=== PATIENT | female | born 1940 | race Hispanic/Latino ===

== ENCOUNTER → 2018-03-12 12:12 | Outpatient (CLI) | payer MEDICARE, OTHER, SELFPAY ==
--- NOTE | 2018-03-12 | DI.CT.S_ITS ---
PROCEDURE: CT CHEST WO CON INDICATIONS: LUNG NODULE TECHNIQUE: Noncontrast 2.0-2.5 mm thick sections acquired from the pulmonary apices to the posterior costophrenic angles. 7 mm thick coronal and sagittal MIP reformats were then acquired. A low radiation dose technique was utilized. COMPARISON: [facility], CT, THORAX WITHOUT CONTRAST, 05/21/2017, 9:40. [facility], CT, THORAX WITHOUT CONTRAST, 07/09/2017, 9:57. FINDINGS: Image quality: Diagnostic, given the low radiation dose technique. Lungs and pleura: There are scattered interstitial changes, and scarring which appear grossly unchanged. Previously described right upper lobe poorly defined nodule appears grossly unchanged measuring 12 x 8 mm image 50 series 3 dating back to prior study from 05/21/17. Additional previously described nodule seen in the anterior left lower lobe are grossly stable. No acute consolidation, pleural effusion or pneumothorax. Central airways appear grossly patent. Surgical clips, and right sided volume loss. Stable appearance of poorly defined groundglass and reticular-nodular subpleural opacities Mediastinum: Coronary artery calcifications. Heart size is normal. No pericardial effusion. No mediastinal adenopathy by size criteria. Thoracic aorta and central pulmonary arteries are normal in size. Esophagus is normal in caliber. No hiatal hernia. Bones and chest wall: No suspicious bony lesions. Chronic appearing left rib fractures. No vertebral body compression fractures. No axillary or supraclavicular adenopathy by size criteria. Thyroid gland negative. Abdomen: Visualized upper abdomen solid organs and bowel loops appear normal in the absence of contrast. IMPRESSION: Overall, stable examination. Recommend continued followup with one year noncontrast chest CT, in particular for the right upper lobe spiculated nodule. Fleischner Society criteria for SOLID lung nodule followup. Nodule size (mm)Low-risk patientHigh-risk patient<6 (single or multiple)No routine followup.Optional CT at 12 months. 6-8 (single or multiple)CT at 6-12 months, then optional CT at 18-24 mo.CT at 6-12 months, then CT at 18-24 months. >8 (single)CT at 3 months, PET-CT, or biopsy. Same as for low-risk pts. >8 (multiple)CT at 3-6 months, then optional CT at 18-24 mo.CT at 3-6 months, then CT at 18-24 months. Fleischner Society criteria for SUB-SOLID lung nodule followup. Solitary pure ground-glass nodules<6 mm (ground glass or part solid)No followup needed. 6 mm or larger (ground glass)CT at 6-12 months to confirm persistence, then CT every 2 years until 5 years.6 mm or larger (part solid)CT at 3-6 months to confirm persistence, then annual CT until 5 years if unchanged and solid component remains <6 mm. Multiple sub-solid nodules<6 mmCT at 3-6 months, then CT consider at 2 & 4 years for high risk patients. [address] at 3-6 months. Subsequent management based on most suspicious lesions. Recommendations do not apply to lung cancer screening, patients with immunosuppression, or patients with known primary cancer. Dictated by: Hitesh Juarez M.D. on 03/12/2018 at 13:03 Approved by: Hitesh Juarez M.D. on 03/12/2018 at 13:27
== END ==
PROVIDERS: PCP Family Medicine; Visit Provider Family Medicine
DX: R91.1 Solitary pulmonary nodule (principal)
CPT/HCPCS: 71250

== ENCOUNTER 2019-03-17 10:38 | Inpatient (IN) | payer MEDICARE, OTHER, SELFPAY ==
[2019-03-17] VITALS (10 sets, daily range): BP systolic 107–148; BP diastolic 49–87; PULSE 74–96; RESP 16–22; TEMP 36.7–37.6; O2SAT 93–98; BMI 18.0
--- NOTE | 2019-03-17 | PATH_ITS ---
[facility] Accession Number: [id number] . 01 Material submitted: . GASTRIC BODY . 01 Clinical history: . EVALUATE FOR H.PYLORI . 02 Diagnosis: Gastric Body: Superficial portions of gastric body-type mucosa with focal features of reactive gastropathy. Negative for H. pylori organisms by immunohistochemistry studies. Negative for intestinal metaplasia. Negative for dysplasia or malignancy. [facility]/03/22/2019 . 02 Electronically signed: . Shania García MD, Pathologist NPI- [id number] . 01 Gross description: . GASTRIC BODY: Received in formalin are 4 fragment(s) of cheung, soft tissue measuring 0.2 x 0.2 x 0.2 cm to 0.4 x 0.3 x 0.2 cm which is entirely submitted and submitted entirely in 1 cassette(s) /DMC /DMC . 02 Microscopic: . An immunohistochemical stain was performed on block A1 to evaluate for Helicobacter organisms and is negative. The control stain showed appropriate reactivity. . * This test was developed and its performance characteristics determined by [facility]. It has not been cleared or approved by the U.S. Food and Drug Administration. The FDA has determined that such clearance or approval is not necessary. This test is used for clinical purposes. It should not be regarded as investigational or for research. . 02 Pathologist provided ICD-10: K29.70 . 02 CPT . 958626, R06875 Performed at: 01 [facility] [address] [place] [address], [place], [place] [id number] MD Earl Raines MD Phone: [phone] [facility] [id number] [place], [place] [id number] MD Anika Miguel MD Phone: [phone]
[2019-03-17] MEDS: SODIUM CHLORIDE 0.9% 1,000 ML 125 ML IV ×2 (11:15→22:12)
[2019-03-17 11:54] LABS: Add Manual Diff / Slide Review NO; Basophils Absolute Auto 0 /uL (0-100); Basophils Percent Auto 0.8 % (0-2); Eosinophils Absolute Auto 100 /uL (0-450); Eosinophils Percent Auto 1.1 % (2-4); Hematocrit 24.5 % (36-46); Hemoglobin 7.4 g/dL (12.0-16.0); Lymphocytes Absolute Auto 1300 /uL (1100-4500); Lymphocytes Percent Auto 28.4 % (25-40); Mean Corpuscular HGB Conc 30.1 % (30-36); Mean Corpuscular Volume 73.2 fL (80-100); Monocytes Absolute Auto 400 /uL (0-900); Monocytes Percent Auto 7.8 % (3-14); Neutrophils Absolute Auto 2900 /uL (1500-7000); Neutrophils Percent Auto 61.9 % (50-75); Platelet Count 277 X10^3/uL (150-400); Red Blood Cell Count 3.35 X10^6/uL (4.0-5.2); Red Cell Distribution Width 16.2 % (11.6-14.8); White Blood Cell Count 4.7 X10^3/uL (4.5-11.0)
[2019-03-17 11:55] LABS: INR 0.9 (0.9-1.3); Prothrombin Time 10.9 SECONDS (10.1-12.7)
[2019-03-17] MEDS: PANTOPRAZOLE 80 MG in SODIUM CHLORIDE 0.9% 100 ML 10 ML IV ×2 (11:56→22:54)
[2019-03-17 11:57] LABS: PTT Partial Thromboplastin Tim 23 SECONDS (26.4-36.2)
[2019-03-17 12:01] LABS: Alanine Aminotransferase 18 IU/L (9-52); Albumin 4.3 g/dL (3.5-5.0); Albumin Globulin Ratio 1.6 (1.0-2.8); Alkaline Phosphatase 84 U/L (38-126); Aspartate Aminotransferase 32 IU/L (14-36); BUN Creatinine Ratio 15.6 (6-22); Bilirubin Total 0.4 mg/dL (0.2-1.3); Blood Urea Nitrogen 14 mg/dL (7-17); Calcium 9.3 mg/dL (8.4-10.2); Carbon Dioxide 24 mmol/L (22-32); Chloride 105 mmol/L (98-107); Estimated Glomerular Filt Rate > 60.0 mL/min (>60); Globulin 2.7 g/dL (1.7-4.1); Glucose 109 mg/dL (80-110); HEMOLYSIS < 15 (0-50); Potassium 4.5 mmol/L (3.4-5.1); Sodium 138 mmol/L (137-145)
[2019-03-17 12:15] LABS: Iron 17 ug/dL (37-170)
[2019-03-17 12:24] LABS: Total Iron Binding Capacity 366 ug/dL (265-497)
[2019-03-17 12:35] LABS: Ferritin 8.2 ng/mL (11.1-264)
--- NOTE | 2019-03-17 12:45 | PC.ADMIT ---
Addendum entered by Hitesh Perry R.N. 03/17/19 13:33: Pt left to OR with pre-op RN for EGD. Report given. Original Note: [address] Admission Note: The patient,Lida Warren,78 y/o, was given written information regarding hospital policies, unit procedures and contact persons. Patient's smoking status: Former smoker. Vital Signs - 8 hr 03/17/19 11:00 Temperature 98.8 F Pulse Rate 84 Respiratory Rate 22 Blood Pressure 143/62 H Pulse Oximetry [address] Padilla's office to room 103 at 1100. Pt walked in to room with steady gait and no assistive device. AO x3 and speech is clear. Primary language is [place] but fluently speaks, understands, and reads Italian. Reports increasing shortness of breath was primary reason for appt but also having problems with epigastric/abd pain after eating accompanied by nausea and vomiting. Reports LBM 03/16/19 was unobserved. Describes emesis consistent with whatever she had consumed prior to vomiting. Unable to obtain specific medical hx due to pt is a poor historian. Reports having many surgeries including her lung cut in half. Reviewed home medications with pt. She is unsure of why she takes them but able to confirm doses. PIV inserted and labs obtained/sent. Educated pt to room, ICU routine, use of call light, and instructed to wait for assistance r/t mod fall risk. She verbalizes understanding.
--- NOTE | 2019-03-17 13:35 | PM.CN ---
History of Present Illness Date Patient Seen: 03/17/19 Time Patient Seen: 13:35 Chief complaint: GI BLEED Reason for consult: epigastric pain and aneumia Narrative: 78 yo woman HD1 admitted for anemia with hct 24.5, has chronic lymphoma for yrs, with significant now remote smoking hx, hx of lung cancer s/p R lobectomy, COPD, and long standing GERD on once a day esomeprazole. In this setting 2weeks ago pt began to develop significant epigastric pain. Pain was constant and frankly hurt - did not radiate to R costal margin or to back - isolated to epigastrium. [place] distinctly different from GERD reflux symptoms - was frankly painful, not burning and did not migrate into lower chest. Pain worsened with meals - pt began fasting to avoid the pain earlier in the week, she was able to eat yesterday with some impovement. Pain is impoved with vomiting, drinking milk and also eating baking soda at home. She denies presyncopy or SOB and seems to be tolerating her anemia fairly well Generally feeling well Last meal last night, drank coffee this am 7am PFSH Medical History (Updated 03/17/19 @ 13:44 by Manolo Ocampo MD) COPD (chronic obstructive pulmonary disease) (Acute) GERD (gastroesophageal reflux disease) (Acute) Lung cancer (Acute) Lung nodule (Acute) Lymphoma (Acute) Surgical History (Updated 03/17/19 @ 13:44 by Manolo Ocampo MD) S/P lobectomy of lung (Acute) Social History household members: none Smoking Status: Former smoker alcohol intake: current Social History household members: none Smoking Status: Former smoker alcohol intake: current Meds Home Medications Medication Instructions Recorded Confirmed Type acetaminophen 650 mg PO Q4H PRN #0 10/25/12 03/17/19 History atorvastatin [Lipitor] 10 mg PO HS #0 10/25/12 03/17/19 History esomeprazole magnesium [Nexium] 20 mg PO DAILY #0 10/25/12 03/17/19 History fluticasone propion-salmeterol 1 puff INH BIDRT #0 10/25/12 03/17/19 History [Advair Diskus] oxycodone-acetaminophen 1 tab PO Q4H #0 10/25/12 03/17/19 History sertraline [Zoloft] 25 mg PO QDAY #0 10/25/12 03/17/19 History albuterol sulfate 1 neb INHALATION PRN PRN 03/17/19 03/17/19 History albuterol sulfate [ProAir HFA] 1 puff INHALATION PRN PRN 03/17/19 03/17/19 History doxycycline hyclate 1 tab PO DAILY 03/17/19 03/17/19 History sulfamethoxazole-trimethoprim 1 tab PO DAILY 03/17/19 03/17/19 History Allergies Allergy/AdvReac Type Severity Reaction Status Date / Time No Known Drug Allergies Allergy Verified 03/17/19 13:41 Exam Vital Signs (past 8 hours): - 03/17/19 11:00 Temperature 98.8 F Pulse Rate 84 Respiratory Rate 22 Blood Pressure 143/62 H Pulse Oximetry 98 Oxygen Delivery Method Room Air Oxygen Flow Rate 0 Objective Labs Result Diagrams: 03/17/19 11:10 03/17/19 11:10 Labs: Laboratory Results - last 24 hr 03/17/19 03/17/19 03/17/19 11:10 11:10 11:10 WBC 4.7 RBC 3.35 L Hgb 7.4 L Hct 24.5 L MCV 73.2 L MCH 22.0 L MCHC 30.1 RDW 16.2 H Plt Count 277 Neut % (Auto) 61.9 Lymph % (Auto) 28.4 [place] % (Auto) 7.8 Eos % (Auto) 1.1 L Baso % (Auto) 0.8 Neut # (Auto) 2900 Lymph # (Auto) 1300 [place] # (Auto) 400 Eos # (Auto) 100 Baso # (Auto) 0 PT 10.9 INR 0.9 APTT 23 L Sodium 138 Potassium 4.5 Chloride 105 Carbon Dioxide 24 BUN 14 Creatinine 0.90 Estimated GFR > 60.0 BUN/Creatinine Ratio 15.6 Glucose 109 Calcium 9.3 Iron TIBC Ferritin 8.2 L Total Bilirubin 0.4 AST 32 ALT 18 Alkaline Phosphatase 84 Total Protein 7.0 Albumin 4.3 Globulin 2.7 Albumin/Globulin Ratio 1.6 Crossmatch 03/17/19 03/17/19 11:10 11:10 WBC RBC Hgb Hct MCV MCH MCHC RDW Plt Count Neut % (Auto) Lymph % (Auto) [place] % (Auto) Eos % (Auto) Baso % (Auto) Neut # (Auto) Lymph # (Auto) [place] # (Auto) Eos # (Auto) Baso # (Auto) PT INR APTT Sodium Potassium Chloride Carbon Dioxide BUN Creatinine Estimated GFR BUN/Creatinine Ratio Glucose Calcium Iron 17 L TIBC 366 Ferritin Total Bilirubin AST ALT Alkaline Phosphatase Total Protein Albumin Globulin Albumin/Globulin Ratio Crossmatch See Detail
[2019-03-17] MEDS: TETRACAINE/BENZOCAINE/BUTAMBEN (CETACAINE) BOTTLE 1 SPRAY TOP (13:45)
[2019-03-17] MEDS: fentaNYL 250 MCG/5 ML INJ IV (13:46)
[2019-03-17] MEDS: MIDAZOLAM 5 MG/ML VIAL 2 MG IV (13:46)
--- NOTE | 2019-03-17 14:15 | PM.CN ---
History of Present Illness Chief complaint: GI BLEED [facility] Medical History (Updated 03/17/19 @ 13:44 by Manolo Ocampo MD) COPD (chronic obstructive pulmonary disease) (Acute) GERD (gastroesophageal reflux disease) (Acute) Lung cancer (Acute) Lung nodule (Acute) Lymphoma (Acute) Surgical History (Updated 03/17/19 @ 13:44 by Manolo Ocampo MD) S/P lobectomy of lung (Acute) Social History household members: none Smoking Status: Former smoker alcohol intake: current Social History household members: none Smoking Status: Former smoker alcohol intake: current Meds Home Medications Medication Instructions Recorded Confirmed Type acetaminophen 650 mg PO Q4H PRN #0 10/25/12 03/17/19 History atorvastatin [Lipitor] 10 mg PO HS #0 10/25/12 03/17/19 History esomeprazole magnesium [Nexium] 20 mg PO DAILY #0 10/25/12 03/17/19 History fluticasone propion-salmeterol 1 puff INH BIDRT #0 10/25/12 03/17/19 History [Advair Diskus] oxycodone-acetaminophen 1 tab PO Q4H #0 10/25/12 03/17/19 History sertraline [Zoloft] 25 mg PO QDAY #0 10/25/12 03/17/19 History albuterol sulfate 1 neb INHALATION PRN PRN 03/17/19 03/17/19 History albuterol sulfate [ProAir HFA] 1 puff INHALATION PRN PRN 03/17/19 03/17/19 History doxycycline hyclate 1 tab PO DAILY 03/17/19 03/17/19 History sulfamethoxazole-trimethoprim 1 tab PO DAILY 03/17/19 03/17/19 History Allergies Allergy/AdvReac Type Severity Reaction Status Date / Time No Known Drug Allergies Allergy Verified 03/17/19 13:41 Review of Systems Constitutional Constitutional: Denies fever(s) Eyes Eyes: Denies bulging eyes ENT Ears, Nose, Mouth, and Throat: No lip swelling Cardiovascular Cardiovascular: Denies generalize swelling Respiratory Respiratory: Denies stridor Gastrointestinal Gastrointestinal: Denies coffee ground emesis Musculoskeletal Musculoskeletal: Denies loss of height Integumentary/Breasts Skin/Breast: Denies wounds Neurologic Neurologic: Denies abnormal speech and Denies confusion Psychiatric Psychiatric: Denies confusion Endocrine Endocrine: Denies deepening of the voice Hematologic/Lymphatic Hematologic/Lymphatic: Denies lymphadenopathy Allergic/Immunologic Allergic/Immunologic: Denies lip swelling Exam Vital Signs (past 8 hours): - 03/17/19 11:00 Temperature 98.8 F Pulse Rate 84 Respiratory Rate 22 Blood Pressure 143/62 H Pulse Oximetry 98 Oxygen Delivery Method Room Air Oxygen Flow Rate 0 Const General: cooperative and healthy appearing Orientation: alert [facility] Head: normal to inspection Nose: nares normal Mouth: oral mucosae normal and lip normal Eyes Eyelids: eyelids normal Sclera: sclerae normal Neck Neck: supple and other (No thyromegally) Chest Chest: other (LCTAB , regular respiratory effort, thoracotomy scar R side) Cardio Rhythm: regular rhythm Heart Sounds: S1 normal, S2 normal, no gallops, no murmurs and no rubs GI Other: non distneded, small para umbilical incisional scar, Normal active BS, dull to percussion, no HSM. moderately tender to palpaiton in epigastrium. no masses Skin General: no rashes or lesions noted Neuro General: alert and awake Psych Appearance: grossly normal Affect: normal affect Objective Labs Result Diagrams: 03/17/19 11:10 03/17/19 11:10 Labs: Laboratory Results - last 24 hr 03/17/19 03/17/19 03/17/19 11:10 11:10 11:10 WBC 4.7 RBC 3.35 L Hgb 7.4 L Hct 24.5 L MCV 73.2 L MCH 22.0 L MCHC 30.1 RDW 16.2 H Plt Count 277 Neut % (Auto) 61.9 Lymph % (Auto) 28.4 [place] % (Auto) 7.8 Eos % (Auto) 1.1 L Baso % (Auto) 0.8 Neut # (Auto) 2900 Lymph # (Auto) 1300 [place] # (Auto) 400 Eos # (Auto) 100 Baso # (Auto) 0 PT 10.9 INR 0.9 APTT 23 L Sodium 138 Potassium 4.5 Chloride 105 Carbon Dioxide 24 BUN 14 Creatinine 0.90 Estimated GFR > 60.0 BUN/Creatinine Ratio 15.6 Glucose 109 Calcium 9.3 Iron TIBC Ferritin 8.2 L Total Bilirubin 0.4 AST 32 ALT 18 Alkaline Phosphatase 84 Total Protein 7.0 Albumin 4.3 Globulin 2.7 Albumin/Globulin Ratio 1.6 Crossmatch 03/17/19 03/17/19 11:10 11:10 WBC RBC Hgb Hct MCV MCH MCHC RDW Plt Count Neut % (Auto) Lymph % (Auto) [place] % (Auto) Eos % (Auto) Baso % (Auto) Neut # (Auto) Lymph # (Auto) [place] # (Auto) Eos # (Auto) Baso # (Auto) PT INR APTT Sodium Potassium Chloride Carbon Dioxide BUN Creatinine Estimated GFR BUN/Creatinine Ratio Glucose Calcium Iron 17 L TIBC 366 Ferritin Total Bilirubin AST ALT Alkaline Phosphatase Total Protein Albumin Globulin Albumin/Globulin Ratio Crossmatch See Detail Assessment & Plan Assessment & Plan narrative: 78 yo woman with asymptomatic aneumia in the setting of a 2 week course of quite marked epigastric pain on low dose PPI Concern for PUD with slow bleeding given absence of blood in stool, consideration of gastric/esophageal mass as well Plan: Urgent EDG today Pt constented All quesitons answered Will need light sedation given COPD and lung resection history
--- NOTE | 2019-03-17 14:20 | P.CONS_ITS ---
History of Present Illness Chief complaint: GI BLEED [facility] Medical History (Updated 03/17/19 @ 13:44 by Manolo Ocampo MD) COPD (chronic obstructive pulmonary disease) (Acute) GERD (gastroesophageal reflux disease) (Acute) Lung cancer (Acute) Lung nodule (Acute) Lymphoma (Acute) Surgical History (Updated 03/17/19 @ 13:44 by Manolo Ocampo MD) S/P lobectomy of lung (Acute) Social History household members: none Smoking Status: Former smoker alcohol intake: current Social History household members: none Smoking Status: Former smoker alcohol intake: current Meds Home Medications Medication Instructions Recorded Confirmed Type acetaminophen 650 mg PO Q4H PRN #0 10/25/12 03/17/19 History atorvastatin [Lipitor] 10 mg PO HS #0 10/25/12 03/17/19 History esomeprazole magnesium [Nexium] 20 mg PO DAILY #0 10/25/12 03/17/19 History fluticasone propion-salmeterol 1 puff INH BIDRT #0 10/25/12 03/17/19 History [Advair Diskus] oxycodone-acetaminophen 1 tab PO Q4H #0 10/25/12 03/17/19 History sertraline [Zoloft] 25 mg PO QDAY #0 10/25/12 03/17/19 History albuterol sulfate 1 neb INHALATION PRN PRN 03/17/19 03/17/19 History albuterol sulfate [ProAir HFA] 1 puff INHALATION PRN PRN 03/17/19 03/17/19 History doxycycline hyclate 1 tab PO DAILY 03/17/19 03/17/19 History sulfamethoxazole-trimethoprim 1 tab PO DAILY 03/17/19 03/17/19 History Allergies Allergy/AdvReac Type Severity Reaction Status Date / Time No Known Drug Allergies Allergy Verified 03/17/19 13:41 Review of Systems Constitutional Constitutional: Denies fever(s) Eyes Eyes: Denies bulging eyes ENT Ears, Nose, Mouth, and Throat: No lip swelling Cardiovascular Cardiovascular: Denies generalize swelling Respiratory Respiratory: Denies stridor Gastrointestinal Gastrointestinal: Denies coffee ground emesis Musculoskeletal Musculoskeletal: Denies loss of height Integumentary/Breasts Skin/Breast: Denies wounds Neurologic Neurologic: Denies abnormal speech and Denies confusion Psychiatric Psychiatric: Denies confusion Endocrine Endocrine: Denies deepening of the voice Hematologic/Lymphatic Hematologic/Lymphatic: Denies lymphadenopathy Allergic/Immunologic Allergic/Immunologic: Denies lip swelling Exam Vital Signs (past 8 hours): - 03/17/19 11:00 Temperature 98.8 F Pulse Rate 84 Respiratory Rate 22 Blood Pressure 143/62 H Pulse Oximetry 98 Oxygen Delivery Method Room Air Oxygen Flow Rate 0 Const General: cooperative and healthy appearing Orientation: alert [facility] Head: normal to inspection Nose: nares normal Mouth: oral mucosae normal and lip normal Eyes Eyelids: eyelids normal Sclera: sclerae normal Neck Neck: supple and other (No thyromegally) Chest Chest: other (LCTAB , regular respiratory effort, thoracotomy scar R side) Cardio Rhythm: regular rhythm Heart Sounds: S1 normal, S2 normal, no gallops, no murmurs and no rubs GI Other: non distneded, small para umbilical incisional scar, Normal active BS, dull to percussion, no HSM. moderately tender to palpaiton in epigastrium. no masses Skin General: no rashes or lesions noted Neuro General: alert and awake Psych Appearance: grossly normal Affect: normal affect Objective Labs Result Diagrams: 03/17/19 11:10 03/17/19 11:10 Labs: Laboratory Results - last 24 hr 03/17/19 03/17/19 03/17/19 11:10 11:10 11:10 WBC 4.7 RBC 3.35 L Hgb 7.4 L Hct 24.5 L MCV 73.2 L MCH 22.0 L MCHC 30.1 RDW 16.2 H Plt Count 277 Neut % (Auto) 61.9 Lymph % (Auto) 28.4 [place] % (Auto) 7.8 Eos % (Auto) 1.1 L Baso % (Auto) 0.8 Neut # (Auto) 2900 Lymph # (Auto) 1300 [place] # (Auto) 400 Eos # (Auto) 100 Baso # (Auto) 0 PT 10.9 INR 0.9 APTT 23 L Sodium 138 Potassium 4.5 Chloride 105 Carbon Dioxide 24 BUN 14 Creatinine 0.90 Estimated GFR > 60.0 BUN/Creatinine Ratio 15.6 Glucose 109 Calcium 9.3 Iron TIBC Ferritin 8.2 L Total Bilirubin 0.4 AST 32 ALT 18 Alkaline Phosphatase 84 Total Protein 7.0 Albumin 4.3 Globulin 2.7 Albumin/Globulin Ratio 1.6 Crossmatch 03/17/19 03/17/19 11:10 11:10 WBC RBC Hgb Hct MCV MCH MCHC RDW Plt Count Neut % (Auto) Lymph % (Auto) [place] % (Auto) Eos % (Auto) Baso % (Auto) Neut # (Auto) Lymph # (Auto) [place] # (Auto) Eos # (Auto) Baso # (Auto) PT INR APTT Sodium Potassium Chloride Carbon Dioxide BUN Creatinine Estimated GFR BUN/Creatinine Ratio Glucose Calcium Iron 17 L TIBC 366 Ferritin Total Bilirubin AST ALT Alkaline Phosphatase Total Protein Albumin Globulin Albumin/Globulin Ratio Crossmatch See Detail Assessment & Plan Assessment & Plan narrative: 78 yo woman with asymptomatic aneumia in the setting of a 2 week course of quite marked epigastric pain on low dose PPI Concern for PUD with slow bleeding given absence of blood in stool, consideration of gastric/esophageal mass as well Plan: Urgent EDG today Pt constented All quesitons answered Will need light sedation given COPD and lung resection history
--- NOTE | 2019-03-17 14:31 | P.OP.ENDO_ITS ---
Operative Date/Time/Diagnoses Date of procedure: 03/17/19 Time of procedure: 14:23 Pre-op diagnosis: epigastric pain Post-op diagnosis: other (1) bleeding Gregory Ulcer 2) Atrophic gastritis ) Procedure & Clinicians Study performed: EGD with cold biopsy Same procedure as scheduled: Yes Indications: 78 yo woman with anemia and marked epigastric pain, admitted to hospital for work up Surgeon: Manolo Ocampo Procedure Notes SCOAP/Timeout: completed Procedure in detail: Patient was brought to the endoscopy suite, a time-out was completed. Her pharynx was anesthetized with Cetacaine spray. Patient was sedated during the course of the procedure with a total of 3 mg of midazolam and 37.5 mg of fentanyl. The gastroscope was introduced visualizing the base of the tongue the soft palate and the hypopharynx. Vocal cords were briefly seen in the endoscope was gently inserted into the proximal esophagus, moving the endoscope down the esophagus no lesions or strictures were identified the mucosa was grossly normal. There was a sizable hiatal hernia identified with the Z- line located at 30 cm and the esophageal hiatus at 35 cm. Inspecting the gastric body there were no lesions identified there was diffuse atrophic gastritis with minimal rugae a identified, multiple biopsies were taken of the gastric body.. The atrium was inspected there were no ulcerations appeared generally healthy the endoscope was intubated into the 1st and 2nd portion of the what duodenum and there was healthy of villous mucosa without ulcerations. The scope was then withdrawn and retroflexed. There was a Hill grade 4 valve with an obvious type 1 paraesophageal hernia. Inspecting the upper portion of the hiatal hernia there was an ulceration with adherent clot, no active bleeding no visible vessel. Multiple attempts to irrigate away the adherent clot were unsuccessful. And the decision was made to leave it in place. The scope was then slowly withdrawn of the stomach and esophagus carefully inspecting the esophageal mucosa for additional lesions. None were identified Sedation minutes: 18 Specimen(s): other (Gastric body evaluate for H pylori) Complications: none Impression: 1. 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 Atrophic gastritis Plan for aftercare: Return to ICU Continue PPI drip Carafate started for comfort Follow up: weeks Disposition: PACU
[2019-03-17] MEDS: PANTOPRAZOLE 80 MG in SODIUM CHLORIDE 0.9% 100 ML 200 ML IV (16:07)
[2019-03-17] MEDS: ALBUTEROL 2.5 MG/3 ML NEB (ADULT) INH (17:30)
--- NOTE | 2019-03-17 17:33 | PM.HP.1 ---
History of Present Illness Date Patient Seen: 03/17/19 Time Patient Seen: 09:38 Chief complaint: GI BLEED Narrative: This is a very pleasant 78-year-old female who was well known to me who was seen in the clinic today after repeated phone calls to get her in for follow-up on her chronic medical problems. She had blood work done yesterday and was then seen today. Extensively she was seen in follow-up for multiple medical problems but states that the only reason she came in is because 1 month ago because she began to be short of breath with exertion and this is markedly worsen. Then 2 weeks ago she had sudden onset of severe mid epigastric pain and then vomited and then has been unable to eat much since that time. She states that the last 2 days she has actually felt good and is feeling much better. She denies any hematemesis. She denies any bright red blood per rectum. She denies any black tarry stools or hematochezia. She denies any chest pain. She does complain of significant exertional dyspnea and that she really can't do much around her house become she becomes so short of breath that she must sit down. She has not had any fever she has not had any productive sputum. She does have a history of bronchiectasis an immuno deficiency and was followed by Dr. Todd in [place], [place] however she has not continued to see him. She previously was on IVIG but was very noncompliant and then was to be cycled on antibiotics which included doxycycline and Septra. It is unclear really what she has been taking. She otherwise does not feel that her breathing has been bad in terms of her cough or wheezing. Past medical history: 1. Bronchiectasis 2. Immunodeficiency 3. History of non-Hodgkin lymphoma with at least 1 recurrence. 4. COPD 5. Previous history of tobacco abuse 6. Hyperlipidemia 7. Depression 8. Pulmonary embolus and DVT greater than 10 years ago 9. recurrent C difficile colitis 10. GERD 11. Degenerative joint disease lumbar spine 12. Recurrent pneumonias status post pneumonectomy I believe in 2011 Current medications: Lipitor 10 mg daily Pantoprazole 40 mg once daily Detrol 2 mg once daily The Zoloft 150 mg daily Trazodone 50 mg daily Doxycycline Septra on rotating basis Advair 250/51 puff twice daily Spiriva 1 puff daily ProAir 2 puffs p.o. q.4-6 hours Allergies: No known drug allergies Past surgical history: December of 2003 exploratory laparoscopy August [address] Aguilar December 07, 2009 right lower lobe and right middle lobe pneumonectomy by Dr. jing ABRAHAMD negative April 02, 2012 Family history Father unknown Mother had a CVA and from this One sister with diabetes One sister from unknown cancer Another brother from unknown cancer Social history: Patient is . Patient lives in house in a [place]. One of her 2 daughters lives above her with her children. Son near lives nearby as well Health related behavior: No further smoking No significant alcohol No illicit drug Patient History Medical History (Updated 03/17/19 @ 13:44 by Manolo Ocampo MD) COPD (chronic obstructive pulmonary disease) (Acute) GERD (gastroesophageal reflux disease) (Acute) Lung cancer (Acute) Lung nodule (Acute) Lymphoma (Acute) Surgical History (Updated 03/17/19 @ 13:44 by Manolo Ocampo MD) S/P lobectomy of lung (Acute) Social History household members: none Smoking Status: Former smoker alcohol intake: current Family & Social History Social History: household members none Prior Living Arrangements Apartment/Condo Safety & Behavioral: Feels Safe in Current Yes Environment Been Physically Hurt or No Threatened By a Person Suicidal Ideation Description None Suicide Plan Description No Plan Tobacco & Substance use: Tobacco type cigarettes Smoking Status Former smoker alcohol intake current alcohol intake frequency 0-2 drinks per day Substance Use Type does not use Meds Home Medications Medication Instructions Recorded Confirmed Type acetaminophen 650 mg PO Q4H PRN #0 10/25/12 03/17/19 History atorvastatin [Lipitor] 10 mg PO HS #0 10/25/12 03/17/19 History esomeprazole magnesium [Nexium] 20 mg PO DAILY #0 10/25/12 03/17/19 History fluticasone propion-salmeterol 1 puff INH BIDRT #0 10/25/12 03/17/19 History [Advair Diskus] oxycodone-acetaminophen 1 tab PO Q4H #0 10/25/12 03/17/19 History sertraline [Zoloft] 25 mg PO QDAY #0 10/25/12 03/17/19 History albuterol sulfate 1 neb INHALATION PRN PRN 03/17/19 03/17/19 History albuterol sulfate [ProAir HFA] 1 puff INHALATION PRN PRN 03/17/19 03/17/19 History doxycycline hyclate 1 tab PO DAILY 03/17/19 03/17/19 History sulfamethoxazole-trimethoprim 1 tab PO DAILY 03/17/19 03/17/19 History Allergies Allergy/AdvReac Type Severity Reaction Status Date / Time No Known Drug Allergies Allergy Verified 03/17/19 13:41 Review of Systems Review of Systems Patient denies headaches. Patient denies chest pain. Patient denies lightheadedness or dizziness. Patient denies palpitations. Patient denies depression. Patient denies any intestinal bleeding. Patient denies any fever or rashes. Patient denies any change in bowel or bladder. Patient denies nausea. Patient has had decreased appetite due to abdominal pain. Only has the pain when she eats. All systems reviewed & are unremarkable except as noted in HPI and below Exam Vital Signs (past 8 hours): - 03/17/19 11:00 03/17/19 14:26 03/17/19 14:30 Temperature 98.8 F 98.4 F Pulse Rate 84 85 78 Respiratory Rate 22 16 16 Blood Pressure 143/62 H 118/69 107/70 Pulse Oximetry 98 98 97 03/17/19 14:35 03/17/19 14:49 Temperature 98.3 F Pulse Rate 78 74 Respiratory Rate 16 Blood Pressure 114/69 113/49 L Pulse Oximetry 98 98 Oxygen Delivery Method Room Air Oxygen Flow Rate 0 Narrative Exam Narrative: Afebrile vital signs are stable; initial O2 sat when she 1st came in was 88% on repeat it was 94% on room air HEENT: Within normal limits. Pupils equal round reactive to light. Oropharynx without erythema or exudate Neck: Supple without adenopathy or thyromegaly or jugular venous distention or bruits Chest: Prolonged expiratory phase with scattered expiratory wheezes but no rhonchi and no crackles Cor: Regular rate and rhythm with distant S1 and S2 Abdomen: Midepigastric pain. No guarding, no rebound tenderness, no hepatosplenomegaly Extremities: No edema, pulses intact Neurologic exam nonfocal Skin no rashes Objective Labs Result Diagrams: 03/17/19 11:10 03/17/19 11:10 Labs: Laboratory Results - last 24 hr 0503/17/19 03/17/19 11:10 11:10 11:10 WBC 4.7 RBC 3.35 L Hgb 7.4 L Hct 24.5 L MCV 73.2 L MCH 22.0 L MCHC 30.1 RDW 16.2 H Plt Count 277 Neut % (Auto) 61.9 Lymph % (Auto) 28.4 [place] % (Auto) 7.8 Eos % (Auto) 1.1 L Baso % (Auto) 0.8 Neut # (Auto) 2900 Lymph # (Auto) 1300 [place] # (Auto) 400 Eos # (Auto) 100 Baso # (Auto) 0 PT 10.9 INR 0.9 APTT 23 L Sodium 138 Potassium 4.5 Chloride 105 Carbon Dioxide 24 BUN 14 Creatinine 0.90 Estimated GFR > 60.0 BUN/Creatinine Ratio 15.6 Glucose 109 Calcium 9.3 Iron TIBC Ferritin 8.2 L Total Bilirubin 0.4 AST 32 ALT 18 Alkaline Phosphatase 84 Total Protein 7.0 Albumin 4.3 Globulin 2.7 Albumin/Globulin Ratio 1.6 Nasal Screen MRSA (PCR) Blood Type Antibody Screen Crossmatch 03/17/19 03/17/19 03/17/19 11:10 11:10 11:10 WBC RBC Hgb Hct MCV MCH MCHC RDW Plt Count Neut % (Auto) Lymph % (Auto) [place] % (Auto) Eos % (Auto) Baso % (Auto) Neut # (Auto) Lymph # (Auto) [place] # (Auto) Eos # (Auto) Baso # (Auto) PT INR APTT Sodium Potassium Chloride Carbon Dioxide BUN Creatinine Estimated GFR BUN/Creatinine Ratio Glucose Calcium Iron 17 L TIBC 366 Ferritin Total Bilirubin AST ALT Alkaline Phosphatase Total Protein Albumin Globulin Albumin/Globulin Ratio Nasal Screen MRSA (PCR) Negative for mrsa Blood Type B Positive Antibody Screen Negative Crossmatch See Detail Assessment & Plan Assessment & Plan narrative: 78-year-old female with acute iron-deficient anemia suspect secondary to upper GI bleed with concern for ulcer. Lengthy discussion of the risks and recommendations for hospitalization and further evaluation and patient is agreeable. Patient is admitted to the hospital. Protonix drip started. Surgery consulted NPO Type and cross and hold for blood and possible transfusion given acute symptoms of severe shortness of breath with exertion. Will continue hospitalization and reassess labs in the morning. Assessment 2. Bronchiectasis with COPD and immuno deficiency without acute issues other than shortness of breath with as suspected due to acute anemia Plan: Continue outpatient medications of Advair, Serevent, ProAir, respiratory therapy consult, monitor for signs of infection. Will hold her rotating antibiotics right now. Will likely need to get back up to see mixing technician in [facility] as outpatient Assessment 3. Hyperlipidemia Plan: Will start back on Lipitor when she is taking oral medications and oral food. Assessment 4. Depression will restart sertraline which she is taking in oral diet. Assessment 5. Previous history of DVT and pulmonary embolus greater than 10 years ago while sick. Unable to do DVT prophylaxis due to acute GI bleed. Code status is DNR
--- NOTE | 2019-03-17 17:36 | RT ---
Patient declined to take Advair. States I have too many of those at home. Explained to her that it was ordered here as a continuation of her home routine. Patient reports that she does not take her Advair every day. Explained to patient that it is a maintenance medicine for her COPD and that it really only works if it is taken every day BID. Patient states she does not feel that she needs it and declines to take it.
--- NOTE | 2019-03-17 17:51 | P.PN_ITS ---
Exam Vital Signs (past 8 hours): - 03/17/19 11:00 03/17/19 14:26 03/17/19 14:30 Temperature 98.8 F 98.4 F Pulse Rate 84 85 78 Respiratory Rate 22 16 16 Blood Pressure 143/62 H 118/69 107/70 Pulse Oximetry 98 98 97 03/17/19 14:35 03/17/19 14:49 03/17/19 17:30 Temperature 98.3 F Pulse Rate 78 74 79 Respiratory Rate 16 Blood Pressure 114/69 113/49 L Pulse Oximetry 98 98 98 Oxygen Delivery Method Room Air Oxygen Flow Rate 0 Objective Labs Result Diagrams: 03/17/19 11:10 03/17/19 11:10 Labs: Laboratory Results - last 24 hr 03/17/19 03/17/19 03/17/19 11:10 11:10 11:10 WBC 4.7 RBC 3.35 L Hgb 7.4 L Hct 24.5 L MCV 73.2 L MCH 22.0 L MCHC 30.1 RDW 16.2 H Plt Count 277 Neut % (Auto) 61.9 Lymph % (Auto) 28.4 [place] % (Auto) 7.8 Eos % (Auto) 1.1 L Baso % (Auto) 0.8 Neut # (Auto) 2900 Lymph # (Auto) 1300 [place] # (Auto) 400 Eos # (Auto) 100 Baso # (Auto) 0 PT 10.9 INR 0.9 APTT 23 L Sodium 138 Potassium 4.5 Chloride 105 Carbon Dioxide 24 BUN 14 Creatinine 0.90 Estimated GFR > 60.0 BUN/Creatinine Ratio 15.6 Glucose 109 Calcium 9.3 Iron TIBC Ferritin 8.2 L Total Bilirubin 0.4 AST 32 ALT 18 Alkaline Phosphatase 84 Total Protein 7.0 Albumin 4.3 Globulin 2.7 Albumin/Globulin Ratio 1.6 Nasal Screen MRSA (PCR) Blood Type Antibody Screen Crossmatch 03/17/19 03/17/19 03/17/19 11:10 11:10 11:10 WBC RBC Hgb Hct MCV MCH MCHC RDW Plt Count Neut % (Auto) Lymph % (Auto) [place] % (Auto) Eos % (Auto) Baso % (Auto) Neut # (Auto) Lymph # (Auto) [place] # (Auto) Eos # (Auto) Baso # (Auto) PT INR APTT Sodium Potassium Chloride Carbon Dioxide BUN Creatinine Estimated GFR BUN/Creatinine Ratio Glucose Calcium Iron 17 L TIBC 366 Ferritin Total Bilirubin AST ALT Alkaline Phosphatase Total Protein Albumin Globulin Albumin/Globulin Ratio Nasal Screen MRSA (PCR) Negative for mrsa Blood Type B Positive Antibody Screen Negative Crossmatch See Detail Assessment & Plan Assessment & Plan narrative: Patient found to have a Den type gastric ulcer per Dr. Eng. The appreciate surgery. Will treat with Protonix drip for at least 24 hours. Will start Carafate now. Will transfuse 1 unit packed red blood cells due to symptomatic. Discussed this with patient she is in agreement. Will likely discharge home on Carafate and she will continue on Protonix 40 mg twice daily for 4-6 weeks. If her symptoms persist despite this treatment and she will need a repeat EGD however if they improve then she will not need it every PEG. If her H pylori biopsies from the EGD are negative then we will do stool antigen H pylori and treat as indicated. 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
[2019-03-17] MEDS: SUCRALFATE 1 GM/10 ML ORAL SUSP PO ×2 (18:23→23:57)
--- NOTE | 2019-03-17 19:07 | PC.NURSE ---
Addendum entered by Vanessa Eric R.N. 03/17/19 21:11: 2100 - PRBC infusion complete. Pt up to BSC. Continues to deny pain or nausea. Reports feeling hungry. Asking appropriate questions about the possibility of discharge tomorrow. Call light in reach. Bed alarm on. Original Note: 0 - PRBC infusing. Pt pleasant and cooperative, somewhat impulsive movements. Reinforced safety and call light use. Pt family at bedside.
[2019-03-17] MEDS: SERTRALINE 50 MG TABLET 150 MG PO (20:57)
[2019-03-17] MEDS: ACETAMINOPHEN 325 MG TABLET 650 MG PO (23:57)
[2019-03-18] VITALS (8 sets, daily range): BP systolic 122–141; BP diastolic 60–75; PULSE 72–83; RESP 16–20; TEMP 36.3–37.1; O2SAT 93–98; BMI 19.4
[2019-03-18 05:10] LABS: Add Manual Diff / Slide Review NO; Basophils Absolute Auto 0 /uL (0-100); Eosinophils Absolute Auto 100 /uL (0-450); Eosinophils Percent Auto 2.2 % (2-4); Hematocrit 23.8 % (36-46); Hemoglobin 7.5 g/dL (12.0-16.0); Lymphocytes Absolute Auto 1300 /uL (1100-4500); Lymphocytes Percent Auto 35.1 % (25-40); Mean Corpuscular HGB Conc 31.5 % (30-36); Mean Corpuscular Hemoglobin 23.4 PG (26-34); Mean Corpuscular Volume 74.2 fL (80-100); Monocytes Absolute Auto 400 /uL (0-900); Monocytes Percent Auto 10.5 % (3-14); Neutrophils Absolute Auto 1800 /uL (1500-7000); Neutrophils Percent Auto 51.2 % (50-75); Platelet Count 210 X10^3/uL (150-400); Red Blood Cell Count 3.21 X10^6/uL (4.0-5.2); Red Cell Distribution Width 16.2 % (11.6-14.8); White Blood Cell Count 3.6 X10^3/uL (4.5-11.0)
[2019-03-18 05:23] LABS: Alanine Aminotransferase 17 IU/L (9-52); Albumin 3.1 g/dL (3.5-5.0); Albumin Globulin Ratio 1.3 (1.0-2.8); Alkaline Phosphatase 58 U/L (38-126); Aspartate Aminotransferase 21 IU/L (14-36); BUN Creatinine Ratio 11.3 (6-22); Bilirubin Total 0.7 mg/dL (0.2-1.3); Blood Urea Nitrogen 9 mg/dL (7-17); Calcium 8.5 mg/dL (8.4-10.2); Carbon Dioxide 26 mmol/L (22-32); Chloride 110 mmol/L (98-107); Estimated Glomerular Filt Rate > 60.0 mL/min (>60); Globulin 2.4 g/dL (1.7-4.1); Glucose 90 mg/dL (80-110); HEMOLYSIS < 15 (0-50); Potassium 4.4 mmol/L (3.4-5.1); Sodium 139 mmol/L (137-145); Total Protein 5.5 g/dL (6.3-8.2)
--- NOTE | 2019-03-18 05:36 | PC.NURSE ---
Pt H/H remains unchanged this AM after the 1 unit of PRBC's she received yesterday. Dr. Loco made aware and updated on labs. Pt asymptomatic. Orders to transfuse one more unit and she will be seen this morning for futher evaluation.
[2019-03-18] MEDS: SUCRALFATE 1 GM/10 ML ORAL SUSP PO ×3 (05:41→17:23)
[2019-03-18] MEDS: SODIUM CHLORIDE 0.9% 1,000 ML 125 ML IV (06:42)
--- NOTE | 2019-03-18 08:57 | P.PN_ITS ---
Subjective Date Patient Seen: 03/18/19 Time Patient Seen: 08:53 Interval history: Says she feels okay maybe a little more effort to breathe, a little confused about while this is happening. She had noticed a little less energy when she was working in the garden but besides a little abdominal discomfort not a lot of other symptoms. Still complains some of epigastric pain but eating some has not had much out through bowels. Counts dropped this morning despite a unit of blood overnight so has received another unit. Exam Vital Signs (past 8 hours): - 03/18/19 05:08 03/18/19 05:55 03/18/19 05:57 Temperature 97.9 F 97.9 F 97.7 F Pulse Rate 83 83 77 Respiratory Rate 18 18 20 Blood Pressure 139/67 139/67 127/60 Pulse Oximetry 93 03/18/19 08:35 Temperature 98.1 F Pulse Rate 77 Respiratory Rate 16 Blood Pressure 136/75 Pulse Oximetry Oxygen Delivery Method Room Air Oxygen Flow Rate 0 Narrative Exam Narrative: Fairly healthy-appearing sitting up in a chair no obvious distress. HEENT unremarkable neck is benign no JVD, chest is clear heart regular abdomen soft somewhat tender mid epigastrium, otherwise unremarkable extremities benign neurologically benign Objective Labs Result Diagrams: 03/18/19 04:45 03/18/19 04:45 Labs: Laboratory Results - last 24 hr 03/17/19 03/17/19 03/17/19 11:10 11:10 11:10 WBC 4.7 RBC 3.35 L Hgb 7.4 L Hct 24.5 L MCV 73.2 L MCH 22.0 L MCHC 30.1 RDW 16.2 H Plt Count 277 Neut % (Auto) 61.9 Lymph % (Auto) 28.4 [place] % (Auto) 7.8 Eos % (Auto) 1.1 L Baso % (Auto) 0.8 Neut # (Auto) 2900 Lymph # (Auto) 1300 [place] # (Auto) 400 Eos # (Auto) 100 Baso # (Auto) 0 PT 10.9 INR 0.9 APTT 23 L Sodium 138 Potassium 4.5 Chloride 105 Carbon Dioxide 24 BUN 14 Creatinine 0.90 Estimated GFR > 60.0 BUN/Creatinine Ratio 15.6 Glucose 109 Calcium 9.3 Iron TIBC Ferritin 8.2 L Total Bilirubin 0.4 AST 32 ALT 18 Alkaline Phosphatase 84 Total Protein 7.0 Albumin 4.3 Globulin 2.7 Albumin/Globulin Ratio 1.6 Nasal Screen MRSA (PCR) Blood Type Antibody Screen Crossmatch 03/17/19 03/17/19 03/17/19 11:10 11:10 11:10 WBC RBC Hgb Hct MCV MCH MCHC RDW Plt Count Neut % (Auto) Lymph % (Auto) [place] % (Auto) Eos % (Auto) Baso % (Auto) Neut # (Auto) Lymph # (Auto) [place] # (Auto) Eos # (Auto) Baso # (Auto) PT INR APTT Sodium Potassium Chloride Carbon Dioxide BUN Creatinine Estimated GFR BUN/Creatinine Ratio Glucose Calcium Iron 17 L TIBC 366 Ferritin Total Bilirubin AST ALT Alkaline Phosphatase Total Protein Albumin Globulin Albumin/Globulin Ratio Nasal Screen MRSA (PCR) Negative for mrsa Blood Type B Positive Antibody Screen Negative Crossmatch See Detail 03/18/19 03/18/19 04:45 04:45 WBC 3.6 L RBC 3.21 L Hgb 7.5 L Hct 23.8 L MCV 74.2 L MCH 23.4 L MCHC 31.5 RDW 16.2 H Plt Count 210 Neut % (Auto) 51.2 Lymph % (Auto) 35.1 [place] % (Auto) 10.5 Eos % (Auto) 2.2 Baso % (Auto) 1.0 Neut # (Auto) 1800 Lymph # (Auto) 1300 [place] # (Auto) 400 Eos # (Auto) 100 Baso # (Auto) 0 PT INR APTT Sodium 139 Potassium 4.4 Chloride 110 H Carbon Dioxide 26 BUN 9 Creatinine 0.80 Estimated GFR > 60.0 BUN/Creatinine Ratio 11.3 Glucose 90 Calcium 8.5 Iron TIBC Ferritin Total Bilirubin 0.7 AST 21 ALT 17 Alkaline Phosphatase 58 Total Protein 5.5 L Albumin 3.1 L Globulin 2.4 Albumin/Globulin Ratio 1.3 Nasal Screen MRSA (PCR) Blood Type Antibody Screen Crossmatch Assessment & Plan (1) UGIB (upper gastrointestinal bleed): Problem details: c confirmed with upper endoscopy showing I believe both gastric and esophageal lesions, now on PPI and sucralfate. But labs suggest ongoing bleed overnight. May require additional scoping. Current visit: Yes Status: Acute (2) Anemia due to blood loss, acute: Problem details: s somewhat persistent, hematocrit was 24 yesterday before transfusion 23 today after 1 unit. Will follow and another couple of hours and transfuse as indicated. Current visit: Yes Status: Acute (3) COPD (chronic obstructive pulmonary disease) case management patient: Problem details: m managing okay on room air today, this history is 1 reason why I am planning transfusion more aggressively. Current visit: Yes Status: Acute Assessment & Plan narrative: Will cut her IV fluids a bit she is taking fluids and seems well hydrated, will follow with labs, continue otherwise same. Discussed and reviewed with patient in detail she understands. Time Spent With Patient Time with patient: 25 - 35 minutes
[2019-03-18] MEDS: PANTOPRAZOLE 80 MG in SODIUM CHLORIDE 0.9% 100 ML 10 ML IV ×2 (09:51→19:45)
[2019-03-18 11:26] LABS: Hematocrit 30.2 % (36-46); Hemoglobin 9.6 g/dL (12.0-16.0)
--- NOTE | 2019-03-18 14:15 | PC.NURSE ---
Hospital day 2. Pt has had small BMs x3 this shift. The first stool brown/formed and the second two loose. Guaic neg. Denies n/v and abd pain. Tolerating clear liquid diet. Using call light appropriately after education to fall risk this AM. Maintaining bed alarm/chair alarm for safety awareness.
--- NOTE | 2019-03-18 16:51 | CM.DANOTE ---
Discharge Planning/Care Management: DCP: assessment: Chart Review: Case received and discussed in Team Rounds. Pt is a 78 year old female who admitted to care of PCP Dr. Padilla 03/17. Payer : Medicare and [employer]. Consulting: General Surgery: Dr. Larson took pt for EGD yesterday afternoon. Pt lives alone but her her daughter and her son live closeby. Per Dr. Padilla pt has not been very compliant with her medications or followup. Pt will benefit from further assessment and face to face meeting. IF homebound, may benefit from HH. Due to caseload triage and lateness of hour will defer to DCP team to continue the assessment process tomorrow. CM Discharge Assessment Start: 03/18/19 16:50 Freq: Status: Active Protocol: Document 03/18/19 16:50 ITV (Rec: 03/18/19 16:50 ITV [id number]) Discharge Planning Assessment Advance Directives? Yes History Provided By Medical Record Prior Living Arrangements Apartment/Condo Household Members none Review Status In Process
[2019-03-18] MEDS: SODIUM CHLORIDE 0.9% 1,000 ML 75 ML IV (17:23)
--- NOTE | 2019-03-18 19:30 | PM.PN.1 ---
Subjective Date Patient Seen: 03/18/19 Time Patient Seen: 19:01 Interval history: Patient is post EGD. She was found to have an ulcer and hiatal hernia. This appeared to be the source of her blood loss. Since being admitted and transfuse she has not had any further bleeding today. Her stool is reported by nursing to be brown and guaiac negative. Her [place] crit has come up with transfusion. Exam Vital Signs (past 8 hours): - 03/18/19 12:00 03/18/19 16:00 Temperature 97.4 F L 98.4 F Pulse Rate 82 72 Respiratory Rate 16 16 Blood Pressure 132/72 122/66 Pulse Oximetry 94 98 Oxygen Delivery Method Room Air Oxygen Flow Rate 0 Narrative Exam Narrative: Co Operative pleasant woman in no apparent distress. Abdomen is soft nontender without mass. Objective Labs Result Diagrams: 03/18/19 11:15 03/18/19 04:45 Labs: Laboratory Results - last 24 hr 03/17/19 03/18/19 03/18/19 11:10 04:45 04:45 WBC 3.6 L RBC 3.21 L Hgb 7.5 L Hct 23.8 L MCV 74.2 L MCH 23.4 L MCHC 31.5 RDW 16.2 H Plt Count 210 Neut % (Auto) 51.2 Lymph % (Auto) 35.1 [place] % (Auto) 10.5 Eos % (Auto) 2.2 Baso % (Auto) 1.0 Neut # (Auto) 1800 Lymph # (Auto) 1300 [place] # (Auto) 400 Eos # (Auto) 100 Baso # (Auto) 0 Sodium 139 Potassium 4.4 Chloride 110 H Carbon Dioxide 26 BUN 9 Creatinine 0.80 Estimated GFR > 60.0 BUN/Creatinine Ratio 11.3 Glucose 90 Calcium 8.5 Total Bilirubin 0.7 AST 21 ALT 17 Alkaline Phosphatase 58 Total Protein 5.5 L Albumin 3.1 L Globulin 2.4 Albumin/Globulin Ratio 1.3 Blood Type B Positive Antibody Screen Negative Crossmatch See Detail 03/18/19 11:15 WBC RBC Hgb 9.6 L Hct 30.2 L MCV MCH MCHC RDW Plt Count Neut % (Auto) Lymph % (Auto) [place] % (Auto) Eos % (Auto) Baso % (Auto) Neut # (Auto) Lymph # (Auto) [place] # (Auto) Eos # (Auto) Baso # (Auto) Sodium Potassium Chloride Carbon Dioxide BUN Creatinine Estimated GFR BUN/Creatinine Ratio Glucose Calcium Total Bilirubin AST ALT Alkaline Phosphatase Total Protein Albumin Globulin Albumin/Globulin Ratio Blood Type Antibody Screen Crossmatch Assessment & Plan Assessment & Plan narrative: Gastric ulcer. Recommend continued treatment with oral proton pump inhibitors twice a day for 3 months and then repeat endoscopy. May advance diet. If hematocrit remained stable can discharge at discretion of admitting physicians. Colonoscopy can be performed as an outpatient. Follow up in our office in about a month with Dr. Ocampo.
[2019-03-18] MEDS: SERTRALINE 50 MG TABLET 150 MG PO (21:10)
[2019-03-18] MEDS: FLUTICASONE/SALMETEROL 250/50 14 PUFF DISKUS INH (21:10)
[2019-03-18] MEDS: ACETAMINOPHEN 325 MG TABLET 650 MG PO (21:10)
--- NOTE | 2019-03-18 22:48 | PC.NURSE ---
domingo note pt denies SOB with moving around in room. RA sats 93+.
[2019-03-19] VITALS: BP 126/66; PULSE 79; RESP 20; TEMP 36.9; O2SAT 98
[2019-03-19] MEDS: SUCRALFATE 1 GM/10 ML ORAL SUSP PO ×2 (01:05→06:26)
[2019-03-19 04:47] VITALS: BP 122/61; PULSE 72; RESP 16; TEMP 36.3; O2SAT 97
[2019-03-19 05:07] LABS: Add Manual Diff / Slide Review NO; Basophils Absolute Auto 0 /uL (0-100); Basophils Percent Auto 0.7 % (0-2); Eosinophils Absolute Auto 100 /uL (0-450); Eosinophils Percent Auto 1.7 % (2-4); Hematocrit 30.2 % (36-46); Hemoglobin 9.5 g/dL (12.0-16.0); Lymphocytes Absolute Auto 1500 /uL (1100-4500); Lymphocytes Percent Auto 31.3 % (25-40); Mean Corpuscular HGB Conc 31.4 % (30-36); Mean Corpuscular Hemoglobin 23.2 PG (26-34); Monocytes Absolute Auto 500 /uL (0-900); Monocytes Percent Auto 11.7 % (3-14); Neutrophils Absolute Auto 2500 /uL (1500-7000); Neutrophils Percent Auto 54.6 % (50-75); Platelet Count 210 X10^3/uL (150-400); Red Blood Cell Count 4.08 X10^6/uL (4.0-5.2); Red Cell Distribution Width 16.9 % (11.6-14.8); White Blood Cell Count 4.7 X10^3/uL (4.5-11.0)
[2019-03-19 05:14] LABS: BUN Creatinine Ratio 8.6 (6-22); Blood Urea Nitrogen 6 mg/dL (7-17); Calcium 8.4 mg/dL (8.4-10.2); Carbon Dioxide 26 mmol/L (22-32); Chloride 108 mmol/L (98-107); Estimated Glomerular Filt Rate > 60.0 mL/min (>60); Glucose 92 mg/dL (80-110); HEMOLYSIS < 15 (0-50); Potassium 3.6 mmol/L (3.4-5.1); Sodium 140 mmol/L (137-145)
[2019-03-19] MEDS: PANTOPRAZOLE 80 MG in SODIUM CHLORIDE 0.9% 100 ML 10 ML IV (06:23)
[2019-03-19] MEDS: SODIUM CHLORIDE 0.9% 1,000 ML 75 ML IV (06:25)
--- NOTE | 2019-03-19 06:40 | PC.NURSE ---
NOC Shift: Pt slept comfortably through shift w/o complaint. Denies pain, discomfort only hungry. Currently tolerating clear liquid diet except frequent urinating. Remains on Protonix gtt, NS IVF's. No active bleeding noted. VSS. H&H stable this AM, possible discharge home today.
[2019-03-19 07:59] VITALS: BP 147/97; PULSE 81; RESP 16; TEMP 36.8; O2SAT 93
--- NOTE | 2019-03-19 09:17 | CM.DPC ---
Addendum entered by Rosita Arvizu R.N. 03/19/19 11:39: Patient is to be discharged home. No home health at this time. Original Note: DCP Cont: Met briefly with patient. Confirmed with her that her daughter lives nearby. Stated, she was feeling better. Mentioned possibly home health for when she discharges, but patient stated, will see. Name of this tool and production planner placed on white board in her room. P: DCP to continue to follow closely. Will be available for any outside resources that patient may need. Rosita Arvizu RN/[employer]
--- NOTE | 2019-03-19 10:05 | PM.DS.1 ---
History of Present Illness Date Patient Seen: 03/19/19 Time Patient Seen: 10:05 Chief complaint: GI BLEED Narrative: See H&P Discharge Providers Date of admission: 03/17/19 10:38 Discharge Date: 03/19/19 Primary care physician: Ayaka Padilla MD Consults: 03/17/19 10:46 Consult to General Surgery Routine Comment: Consulting Provider: Parviz Calloway Reason for consultation: Possible GI Bleed Has provider been notified: Yes 03/17/19 11:40 Consult to Dietitian, Adult Routine Comment: Reason For Exam: assessed at risk 03/17/19 12:53 Consult to Respiratory Therapy Evaluate & Treat Comment: shortness of breath/wheezing Physician Instructions: Evaluate and treat Discharge provider: Adolfo Tay MD Summary Discharge Diagnosis: 1. Upper GI bleed, with both gastric and esophageal components. Scope finds no active bleeding at time of study. 2. Anemia profound, iron deficiency but suspected item above as primary component. 3. History of bronchiectasis, suspected as an autoimmune process. Cause is fairly persistent lung disease and breathing issues. On several medications. 4. Depression remains on medication. Hospital Course: Patient was admitted after increasing weakness, abdominal pain, and finding of significant anemia. Denied any clear evidence of blood loss as far as melena, hematemesis or the like but symptoms had developed over a number of weeks it seems. She was evaluated by General surgery with upper endoscopy which found evidence of both esophageal and gastric issues but no active bleeding at the time. She was placed on high-dose PPI as well as sucralfate, her appetite has improved her abdominal pain has improved she is feeling a bit stronger. All usual medications were provided. Given her history of pulmonary complaints she received 1st 1 transfusion of a unit of PRBCs with what appeared to be a fairly minimal impact on counts so than yesterday morning received a 2nd unit and hematocrit came to 30 and has remained there overnight. Up and around okay feeling stronger. Stable and ready for discharge. Status at Discharge Cognitive/behavioral status at discharge: oriented Functional status at discharge: independent ambulation Overall status at discharge: patient is back to baseline Time Spent with Patient Greater than 30 minutes Exam Vital Signs (past 8 hours): - 03/19/19 04:47 03/19/19 07:59 Temperature 97.3 F L 98.2 F Pulse Rate 72 81 Respiratory Rate 16 16 Blood Pressure 122/61 147/97 H Pulse Oximetry 97 93 Oxygen Delivery Method Room Air Oxygen Flow Rate 0 Narrative Exam Narrative: Somewhat frail appearing older woman no acute distress sitting up in chair. HEENT unremarkable neck is benign chest is clear heart regular without murmur abdomen is soft nontender nondistended normoactive bowel tones no organomegaly or mass extremities benign neurologically benign. Objective Labs Result Diagrams: 03/19/19 04:39 03/19/19 04:39 Labs: Laboratory Results - last 24 hr 03/18/19 03/19/19 03/19/19 11:15 04:39 04:39 WBC 4.7 RBC 4.08 Hgb 9.6 L 9.5 L Hct 30.2 L 30.2 L MCV 74.0 L MCH 23.2 L MCHC 31.4 RDW 16.9 H Plt Count 210 Neut % (Auto) 54.6 Lymph % (Auto) 31.3 [place] % (Auto) 11.7 Eos % (Auto) 1.7 L Baso % (Auto) 0.7 Neut # (Auto) 2500 Lymph # (Auto) 1500 [place] # (Auto) 500 Eos # (Auto) 100 Baso # (Auto) 0 Sodium 140 Potassium 3.6 Chloride 108 H Carbon Dioxide 26 BUN 6 L Creatinine 0.70 Estimated GFR > 60.0 BUN/Creatinine Ratio 8.6 Glucose 92 Calcium 8.4 Discharge Plan Discharge Plan Patient Disposition: Home Discharge Med Rec/Prescriptions Prescriptions: New sucralfate 100 mg/mL Suspension 1 gm PO Q6HR Qty: 1000 RF: 2 esomeprazole magnesium 40 mg capsule,delayed release(DR/EC) 40 mg PO DAILY Qty: 30 RF: 0 Continued atorvastatin [Lipitor] 10 MG tablet 10 mg PO HS Qty: 0 RF: 0 sertraline [Zoloft] 25 MG tablet 150 mg PO QDAY Qty: 0 RF: 0 acetaminophen 650 mg Tablet Extended Release 650 mg PO Q4H PRN (Reason: pain) Qty: 0 RF: 0 oxycodone-acetaminophen 5-325 mg Tablet 1 tab PO Q4H Qty: 0 RF: 0 fluticasone propion-salmeterol [Advair Diskus] 100 MCG/50 MCG blister with device 1 puff INH BIDRT Qty: 0 RF: 0 albuterol sulfate 2.5 mg /3 mL (0.083 %) solution for nebulization 1 neb Inhalation PRN PRN (Reason: shortness of breath) RF: 0 albuterol sulfate 90 mcg/actuation HFA aerosol inhaler 1 puff Inhalation PRN PRN (Reason: Shortness Of Breath) RF: 0 Discontinued esomeprazole magnesium [Nexium] 20 mg Capsule,Delayed Release(Dr/Ec) 20 mg PO DAILY Qty: 0 RF: 0 doxycycline hyclate 100 mg capsule 1 tab PO DAILY RF: 0 sulfamethoxazole-trimethoprim 800-160 mg tablet 1 tab PO DAILY RF: 0 Follow up/Referrals: Ayaka Padilla MD [Primary Care Provider] - 3-5 Days Provider Discharge Instructions Diet: Diet as Tolerated Activity: as tolerated Skin/Wound/Dressing Care Report to your healthcare provider any signs of infection, such as:: chills, fever, night sweats, increased pain, unusual drainage and unusual redness Discharge Data Primary Care Provider: Ayaka Padilla Attending Provider: Ayaka Padilla Admit Date/Time: 03/17/19 10:38
== END 2019-03-19 11:20 | disposition home or self-care (01) | DRG 378 ==
PROVIDERS: Family Medicine; Surgery; Admitting Provider Family Medicine; PCP Family Medicine; Visit Provider Family Medicine
PROC: 0DJ08ZZ Inspection of Upper Intestinal Tract, Via Natural or Artificial Opening Endoscopic (ICD-10-PCS; CPT 43235; principal; 2019-03-17 13:45)
DX: K25.4 Chronic or unspecified gastric ulcer with hemorrhage (principal); D62 Acute posthemorrhagic anemia; K29.41 Chronic atrophic gastritis with bleeding; J44.9 Chronic obstructive pulmonary disease, unspecified; K44.9 Diaphragmatic hernia without obstruction or gangrene; K21.9 Gastro-esophageal reflux disease without esophagitis; E78.5 Hyperlipidemia, unspecified; F32.9 Major depressive disorder, single episode, unspecified; Z87.891 Personal history of nicotine dependence
CPT/HCPCS: 36415; 36430; 36592; 43239; 80048; 80053; 82728; 83540; 83550; 85014; 85018; 85025; 85610; 85730; 86850; 86900; 86901; 87797; 88305; 88342; 94640; 99152; 99231; 99232; P9016; C9113; J2250; J3010; J7613

== ENCOUNTER → 2019-03-22 08:42 | Outpatient (CLI) | payer MEDICARE, OTHER, SELFPAY ==
[2019-03-17 11:00] VITALS: BMI 18.0
[2019-03-22 09:35] LABS: Add Manual Diff / Slide Review NO; Basophils Absolute Auto 0 /uL (0-100); Basophils Percent Auto 0.7 % (0-2); Eosinophils Absolute Auto 100 /uL (0-450); Eosinophils Percent Auto 2.8 % (2-4); Hematocrit 32.6 % (36-46); Hemoglobin 10.4 g/dL (12.0-16.0); Lymphocytes Absolute Auto 1200 /uL (1100-4500); Lymphocytes Percent Auto 27.7 % (25-40); Mean Corpuscular Hemoglobin 23.6 PG (26-34); Mean Corpuscular Volume 73.7 fL (80-100); Monocytes Absolute Auto 500 /uL (0-900); Monocytes Percent Auto 10.6 % (3-14); Neutrophils Absolute Auto 2600 /uL (1500-7000); Neutrophils Percent Auto 58.2 % (50-75); Platelet Count 226 X10^3/uL (150-400); Red Blood Cell Count 4.42 X10^6/uL (4.0-5.2); Red Cell Distribution Width 17.4 % (11.6-14.8); White Blood Cell Count 4.4 X10^3/uL (4.5-11.0)
[2019-03-22 10:00] LABS: BUN Creatinine Ratio 15.7 (6-22); Blood Urea Nitrogen 11 mg/dL (7-17); Calcium 9.1 mg/dL (8.4-10.2); Carbon Dioxide 30 mmol/L (22-32); Chloride 105 mmol/L (98-107); Estimated Glomerular Filt Rate > 60.0 mL/min (>60); Glucose 89 mg/dL (80-110); HEMOLYSIS < 15 (0-50); Potassium 3.8 mmol/L (3.4-5.1); Sodium 140 mmol/L (137-145)
== END ==
PROVIDERS: PCP Family Medicine; Visit Provider Family Medicine
DX: D62 Acute posthemorrhagic anemia (principal); R91.8 Other nonspecific abnormal finding of lung field; D70.9 Neutropenia, unspecified
CPT/HCPCS: 36415; 80048; 85025

== ENCOUNTER → 2019-06-24 12:43 | Outpatient (CLI) | payer MEDICARE, OTHER, SELFPAY ==
[2019-03-17 11:00] VITALS: BMI 18.0
[2019-06-24 13:25] LABS: Add Manual Diff / Slide Review NO; Basophils Absolute Auto 0 /uL (0-100); Basophils Percent Auto 0.4 % (0-2); Eosinophils Absolute Auto 0 /uL (0-450); Eosinophils Percent Auto 0.4 % (2-4); Hematocrit 28.9 % (36-46); Hemoglobin 9.1 g/dL (12.0-16.0); Lymphocytes Absolute Auto 1300 /uL (1100-4500); Mean Corpuscular HGB Conc 31.5 % (30-36); Mean Corpuscular Volume 73.2 fL (80-100); Monocytes Absolute Auto 500 /uL (0-900); Neutrophils Absolute Auto 4300 /uL (1500-7000); Neutrophils Percent Auto 70.2 % (50-75); Platelet Count 307 X10^3/uL (150-400); Red Blood Cell Count 3.94 X10^6/uL (4.0-5.2); White Blood Cell Count 6.1 X10^3/uL (4.5-11.0)
[2019-06-24 13:42] LABS: Blood Urea Nitrogen 15 mg/dL (7-17); Calcium 9.4 mg/dL (8.4-10.2); Carbon Dioxide 27 mmol/L (22-32); Chloride 101 mmol/L (98-107); Estimated Glomerular Filt Rate 53.9 mL/min (>60); Glucose 129 mg/dL (80-110); HEMOLYSIS < 15 (0-50); Potassium 4.7 mmol/L (3.4-5.1); Sodium 140 mmol/L (137-145)
== END ==
PROVIDERS: PCP Family Medicine; Visit Provider Family Medicine
DX: D62 Acute posthemorrhagic anemia (principal)
CPT/HCPCS: 36415; 80048; 85025

== ENCOUNTER 2019-07-11 07:38 | Day surgery (SDC) | payer MEDICARE, OTHER, SELFPAY ==
[2019-03-17 11:00] VITALS: BMI 18.0
[2019-07-11] VITALS (7 sets, daily range): BP systolic 91–125; BP diastolic 42–93; PULSE 79–97; RESP 11–17; TEMP 36.1–36.5; O2SAT 96–100
[2019-07-11] MEDS: SODIUM CHLORIDE 0.9% 1,000 ML 200 ML IV (08:00)
--- NOTE | 2019-07-11 08:19 | PM.PREOP ---
Pre-operative Note Interval Note History & Physical reviewed/Exam performed by Physician: Yes Changes to H&P: No ASA Class (for procedural sedation): II
[2019-07-11] MEDS: LIDOCAINE 4% SOLN 50 ML 20 ML TOP (08:28)
[2019-07-11] MEDS: MIDAZOLAM 5 MG/5 ML VIAL IV (09:06)
[2019-07-11] MEDS: fentaNYL 250 MCG/5 ML INJ IV (09:11)
--- NOTE | 2019-07-11 09:16 | PM.OP.ENDO ---
Operative Date/Time/Diagnoses Date of procedure: 07/11/19 Time of procedure: 09:16 Pre-op diagnosis: anemia Post-op diagnosis: same Procedure & Clinicians Study performed: Esophagoduodenoscopy Colonoscopy Same procedure as scheduled: Yes Indications: 78-year-old woman with anemia and no colonoscopy within the past 10 years. Surgeon: Jese Sosa Procedure Notes SCOAP/Timeout: Performed Procedure in detail: A bite block was placed. The scope was carefully inserted into the mouth and passed into the esophagus. The stomach was insufflated. The stomach was inspected there was no evidence of gastritis. The pyloric channel was inspected and was normal without evidence of ulcer disease. Scope was retroflexed within the stomach and demonstrated a moderate size hiatal hernia the previously described Den's ulcer was no longer present. The scope was then carefully withdrawn. The Z-line was identified there was no evidence of Brizuela's or esophagitis. The stomach was then desufflated and the scope withdrawn. Digital rectal exam was performed that demonstrated no masses. There is no evidence of external hemorrhoid. The scope was then carefully inserted into the rectum and advanced through the colon. The scope was then advanced to the ileocecal valve. Upon reaching the valve the scope was then carefully withdrawn. The colonoscopy was normal. There was no evidence of polyps masses diverticulosis or bleeding. The scope was then carefully withdrawn. Patient tolerated procedure well. Scope withdrawal time: 7 Sedation minutes: 40 Findings: hiatal hernia Specimen(s): none sent Complications: other Impression: Hiatal hernia Post-procedure Recommendations: Colonscopy in 10 years and Continue medication(s) Disposition: same day surgery
== END 2019-07-11 10:16 | disposition home or self-care (01) ==
PROVIDERS: PCP Family Medicine; Visit Provider Surgery
PROC: 0DJ08ZZ Inspection of Upper Intestinal Tract, Via Natural or Artificial Opening Endoscopic (ICD-10-PCS; CPT 43235; principal; 2019-07-11 08:45)
PROC: 0DJD8ZZ Inspection of Lower Intestinal Tract, Via Natural or Artificial Opening Endoscopic (ICD-10-PCS; CPT 45378; 2019-07-11 08:45)
DX: D64.9 Anemia, unspecified (principal); Z12.11 Encounter for screening for malignant neoplasm of colon; K44.9 Diaphragmatic hernia without obstruction or gangrene; J44.9 Chronic obstructive pulmonary disease, unspecified; K21.9 Gastro-esophageal reflux disease without esophagitis
CPT/HCPCS: 43235; G0121; 99152; 99153; J2250; J3010

== ENCOUNTER 2019-11-01 16:42 | Inpatient (IN) | payer MEDICARE, OTHER, SELFPAY ==
[2019-03-17 11:00] VITALS: BMI 18.0
[2019-11-01 17:00] VITALS: BP 134/53; PULSE 88; RESP 19; TEMP 37.3; O2SAT 100
--- NOTE | 2019-11-01 17:05 | DI.RAD.S_ITS ---
PROCEDURE: XR CHEST 1V INDICATIONS: hypoxemia TECHNIQUE: One view of the chest was acquired. COMPARISON: [facility], , CHEST 2 VIEW, 05/15/2017, 12:37. FINDINGS: Surgical changes and devices: Surgical clips project over the right superomedial thorax. Lungs and pleura: No change in right basilar and right apical pleural-parenchymal density, consistent with scarring. No pleural effusions or pneumothorax. Mediastinum: Mediastinal contours appear normal. Heart size is normal. Bones and chest wall: No suspicious bony lesions. Overlying soft tissues appear unremarkable. IMPRESSION: No acute process. Chronic right scarring. Dictated by: Elvin Avila M.D. on 11/01/2019 at 17:24 Approved by: Elvin Avila M.D. on 11/01/2019 at 17:25
[2019-11-01 17:44] VITALS: BMI 19.1
[2019-11-01 18:05] LABS: Add Manual Diff / Slide Review NO; Basophils Absolute Auto 0 /uL (0-100); Basophils Percent Auto 0.8 % (0-2); Eosinophils Absolute Auto 0 /uL (0-450); Eosinophils Percent Auto 0.7 % (2-4); Hematocrit 21.6 % (36-46); Lymphocytes Absolute Auto 1000 /uL (1100-4500); Lymphocytes Percent Auto 29.1 % (25-40); Mean Corpuscular HGB Conc 29.9 % (30-36); Mean Corpuscular Hemoglobin 19.8 PG (26-34); Mean Corpuscular Volume 66.1 fL (80-100); Monocytes Absolute Auto 400 /uL (0-900); Neutrophils Absolute Auto 1900 /uL (1500-7000); Neutrophils Percent Auto 57.4 % (50-75); Platelet Count 273 X10^3/uL (150-400); Red Blood Cell Count 3.26 X10^6/uL (4.0-5.2); Red Cell Distribution Width 18.7 % (11.6-14.8); White Blood Cell Count 3.3 X10^3/uL (4.5-11.0)
[2019-11-01 18:09] LABS: Hemoglobin 6.4 g/dL (12.0-16.0)
[2019-11-01 18:14] LABS: Alanine Aminotransferase 12 IU/L (<35); Albumin 4.2 g/dL (3.5-5.0); Albumin Globulin Ratio 1.6 (1.0-2.8); Alkaline Phosphatase 83 U/L (38-126); Aspartate Aminotransferase 28 IU/L (14-36); BUN Creatinine Ratio 15.6 (6-22); Bilirubin Total 0.2 mg/dL (0.2-1.3); Blood Urea Nitrogen 14 mg/dL (7-17); C-Reactive Protein Quant 1.1 mg/dL (<1.0); Carbon Dioxide 26 mmol/L (22-32); Chloride 105 mmol/L (98-107); Estimated Glomerular Filt Rate > 60.0 mL/min (>60); Globulin 2.7 g/dL (1.7-4.1); Glucose 105 mg/dL (80-110); HEMOLYSIS < 15 (0-50); Sodium 140 mmol/L (137-145); Total Protein 6.9 g/dL (6.3-8.2)
[2019-11-01 18:30] LABS: Adenovirus Not Detected (Not Detect); Bordetella pertussis Not Detected (Not Detect); Chlamydophila pneumoniae Not Detected (Not Detect); Coronavirus 229E Not Detected (Not Detect); Coronavirus HKU1 Not Detected (Not Detect); Coronavirus NL 63 Not Detected (Not Detect); Coronavirus OC43 Not Detected (Not Detect); Human Metapneumovirus Not Detected (Not Detect); Human Rhinovirus/Enterovirus Not Detected (Not Detect); Influenza A Not Detected (Not Detect); Influenza B Not Detected (Not Detect); Mycoplasma pneumoniae Not Detected (Not Detect); Parainfluenza Virus 1 Not Detected (Not Detect); Parainfluenza Virus 2 Not Detected (Not Detect); Parainfluenza Virus 3 Not Detected (Not Detect); Parainfluenza Virus 4 Not Detected (Not Detect); Respiratory Syncytial Virus Not Detected (Not Detect)
[2019-11-01 18:31] LABS: Erythrocyte Sedimentation Rate 37 MM/HR (0-20)
[2019-11-01 18:32] LABS: Hypochromasia 2+; Microcytosis 2+; Target Cells 1+
[2019-11-01 18:44] LABS: Prothrombin Time 11.2 SECONDS (10.1-12.7)
[2019-11-01 18:52] LABS: Lactate (Lactic Acid) 1.1 mmol/L (0.7-2.1)
--- NOTE | 2019-11-01 18:54 | PM.HP.1 ---
History of Present Illness History of Present Illness Date Patient Seen: 11/01/19 Time Patient Seen: 16:30 Chief complaint: HYPOXEMIA Narrative: This is a very pleasant 79-year-old female who presented for a scheduled appointment at the clinic today but was found to have significant hypoxemia with O2 saturations on room air in the 80th percentile. She was extremely weak and worsened shortness of breath with any exertion. The patient was admitted to the hospital for further workup and evaluation and was found to be profoundly anemic. The patient has had progressive worsening in her condition over the last several months and then more significantly over the past 2 weeks. She lives in the downstairs part of the house and 1 of her daughters lives in the upstairs part of the house. Her daughter has been insisting and bagging her to have an appointment with me but she has been resistant. She then developed left shoulder pain and knee pain and was concerned about possible recurrence of her non-Hodgkin's lymphoma. The patient states that last week she had URI symptoms with chills no fever but worsening cough and shortness of breath. She is complaining of bilateral upper extremities being numb as well as her left arm has a lump near the shoulder and had sudden onset of pain to the point that she can barely move it. She is not having any injury. The right arm is not painful. Her right knee began giving her pain and giving out on her a couple weeks ago as well and she started using a cane. Past medical history: 1. Bronchiectasis 2. Recurrent pneumonia status post right middle lobe and lower lobe pneumonectomy due to nonfunctioning and recurrent infection. 3. COPD 4. immunodeficiency currently not being treated 5. Previous history of tobacco abuse 6. History of gastric ulcer status post GI hemorrhage 7. Anemia 8. Neutropenia 9. Recurrent non-Hodgkin's lymphoma, not active for approximately 5 years 10. Hyperlipidemia 11. Gastroesophageal reflux disease 12. Depression Allergies no known drug allergies Past surgical history: 1. 12/2003 exploratory laparoscopy 2. August [address] Morejon 3. December 07, 2009 right middle lobe and lower lobe pneumonectomy 4. 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 She lives in in a [place] with her daughter living above her. She is but and her lives in [place]. She has 2 daughters and a son and many grandchildren Review of systems: Negative for any chest pain. Negative for any palpitations. She has had a 5 lb weight loss since she was last seen approximately 3-4 months ago She denies night sweats She denies headache She denies worsening depression She denies hematemesis or bright blood per rectum or black tarry stools or hematochezia. She has had a decreased appetite. She has had increasing shortness of breath. She has had increase in her cough. She has not had any urine symptoms. Patient History Family & Social History Social History: household members family,none Prior Living Arrangements House Safety & Behavioral: Feels Safe in Current Yes Environment Been Physically Hurt or No Threatened By a Person Suicidal Ideation Description None Suicide Plan Description No Plan Tobacco & Substance use: Tobacco type cigarettes Smoking Status Former smoker alcohol intake current alcohol intake frequency 0-2 drinks per day Substance Use Type does not use Meds Home Medications and Allergies Home Medications Medication Instructions Recorded Confirmed Type acetaminophen 650 mg PO Q4H PRN #0 10/25/12 11/01/19 History atorvastatin [Lipitor] 10 mg PO HS #0 10/25/12 11/01/19 History fluticasone propion-salmeterol 1 puff INH BIDRT #0 10/25/12 11/01/19 History [Advair Diskus] oxycodone-acetaminophen 1 tab PO Q4H #0 10/25/12 11/01/19 History sertraline [Zoloft] 150 mg PO QDAY #0 10/25/12 11/01/19 History albuterol sulfate 1 neb INHALATION PRN PRN 03/17/19 11/01/19 History albuterol sulfate 1 puff INHALATION PRN PRN 03/17/19 11/01/19 History esomeprazole magnesium 40 mg PO DAILY #30 cap 03/19/19 11/01/19 Rx sucralfate 1 gm PO Q6HR #1000 ml 03/19/19 11/01/19 Rx Allergies Allergy/AdvReac Type Severity Reaction Status Date / Time No Known Drug Allergies Allergy Verified 07/06/19 09:15 Review of Systems Review of Systems ROS Unobtainable: All systems reviewed & are unremarkable except as noted in HPI and below Exam Vital Signs (past 8 hours): Patient appears pale and cachectic and older than her stated age of 79. She appears tired. She is alert and oriented x3. She is a good historian HEENT: Mucous membranes moist and pink Neck: Supple without adenopathy or thyromegaly no jugular venous distention or bruits Chest: Diffuse expiratory wheezes and inspiratory wheezes with scattered rhonchi and decreased breath sounds in the right base no crackles Cor regular rate and rhythm with distant S1-S2 Abdomen: Positive bowel sounds, no hepatosplenomegaly. There's no guarding or rebound but patient does have midepigastric tenderness Extremities: No edema, pulses intact Neurologic exam nonfocal. Skin no rashes. Objective Labs Result Diagrams: 11/01/19 17:51 11/01/19 17:51 Labs: Laboratory Results - last 24 hr 11/01/19 11/01/19 11/01/19 16:35 17:51 17:51 WBC 3.3 L RBC 3.26 L Hgb 6.4 L* Hct 21.6 L MCV 66.1 L MCH 19.8 L MCHC 29.9 L RDW 18.7 H Plt Count 273 Neut % (Auto) 57.4 Lymph % (Auto) 29.1 [place] % (Auto) 12.0 Eos % (Auto) 0.7 L Baso % (Auto) 0.8 Neut # (Auto) 1900 Lymph # (Auto) 1000 L [place] # (Auto) 400 Eos # (Auto) 0 Baso # (Auto) 0 RBC Morphology See below Hypochromasia 2+ H Microcytosis 2+ H Target Cells 1+ H ESR 37 H PT INR Sodium 140 Potassium 4.0 Chloride 105 Carbon Dioxide 26 BUN 14 Creatinine 0.90 Estimated GFR > 60.0 BUN/Creatinine Ratio 15.6 Glucose 105 Calcium 9.0 Total Bilirubin 0.2 AST 28 ALT 12 Alkaline Phosphatase 83 C-Reactive Protein 1.1 H Total Protein 6.9 Albumin 4.2 Globulin 2.7 Albumin/Globulin Ratio 1.6 Chlamy pneumoniae PCR Not detected Adenovirus (PCR) Not detected B.parapertussis DNA PCR Not detected Coronavirus OC43 (PCR) Not detected Coronavirus HKU1 (PCR) Not detected Coronavirus 229E (PCR) Not detected Coronavirus NL63 (PCR) Not detected Human Metapneumovir PCR Not detected Influenza Type A (PCR) Not detected Influenza Type B (PCR) Not detected M. pneumoniae (PCR) Not detected Parainfluenza 1 (PCR) Not detected Parainfluenza 2 (PCR) Not detected Parainfluenza 3 (PCR) Not detected Parainfluenza 4 (PCR) Not detected RSV (PCR) Not detected Entero/Rhino (PCR) Not detected Crossmatch 11/01/19 11/01/19 17:51 17:51 WBC RBC Hgb Hct MCV MCH MCHC RDW Plt Count Neut % (Auto) Lymph % (Auto) [place] % (Auto) Eos % (Auto) Baso % (Auto) Neut # (Auto) Lymph # (Auto) [place] # (Auto) Eos # (Auto) Baso # (Auto) RBC Morphology Hypochromasia Microcytosis Target Cells ESR PT 11.2 INR 1.0 Sodium Potassium Chloride Carbon Dioxide BUN Creatinine Estimated GFR BUN/Creatinine Ratio Glucose Calcium Total Bilirubin AST ALT Alkaline Phosphatase C-Reactive Protein Total Protein Albumin Globulin Albumin/Globulin Ratio Chlamy pneumoniae PCR Adenovirus (PCR) B.parapertussis DNA PCR Coronavirus OC43 (PCR) Coronavirus HKU1 (PCR) Coronavirus 229E (PCR) Coronavirus NL63 (PCR) Human Metapneumovir PCR Influenza Type A (PCR) Influenza Type B (PCR) M. pneumoniae (PCR) Parainfluenza 1 (PCR) Parainfluenza 2 (PCR) Parainfluenza 3 (PCR) Parainfluenza 4 (PCR) RSV (PCR) Entero/Rhino (PCR) Crossmatch See Detail Assessment & Plan Assessment & Plan narrative: 79-year-old female Assessment 1. Hypoxemia suspect multifactorial related to bronchiectasis with COPD exacerbation and possible recurrent pneumonia Plan: Will admit to the hospital for further treatment. Will do chest x-ray PA and lateral. Will consult respiratory therapy. Will start empiric treatment with ceftriaxone 1 g IV Q 24 hours and azithromycin 500 mg IV Q 24 hours. We will give Solu-Medrol 60 mg IV Q 8 hours and re-evaluate in a.m.. Will give supplemental oxygen. Respiratory panel is pending. Will start outpatient Spiriva as well Assessment 2. Profound anemia with previous history of gastric ulcer with hemorrhage. Plan: Will guaiac all stools Will type and cross and transfuse 2 units packed red blood cells with 20 mg of p.o. Lasix in between units of blood. Will treat with Protonix 40 mg IV Will make NPO for possible endoscopy in a.m.. Assessment 3. Previous history of non-Hodgkin's lymphoma without evidence of recurrence. I think her pain in her shoulder and knee are muscular and degenerative joint Disease. Plan will continue to monitor. Will replace blood. Will x-ray shoulder and knee in a.m.. Assessment 4. History of gastroesophageal reflux disease Plan: Protonix Assessment 5. Depression will treat with Zoloft 150 mg daily. Code status is DNR
[2019-11-01 19:21] LABS: Procalcitonin < 0.05 ng/mL (<0.5)
[2019-11-01] MEDS: AZITHROMYCIN 500 MG in DEXTROSE 5% IN WATER 250 ML IV (19:48)
[2019-11-01] MEDS: SODIUM CHLORIDE 0.45% 1,000 ML 84 ML IV (19:53)
[2019-11-01 20:30] VITALS: BP 110/57; PULSE 96; RESP 18; TEMP 37.3
[2019-11-01 20:56] VITALS: BP 110/57; PULSE 96; RESP 18; TEMP 37.3
[2019-11-01] MEDS: PANTOPRAZOLE 40 MG VIAL IV (21:04)
[2019-11-01] MEDS: methylPREDNISolone 125 MG/2 ML VIAL 60 MG IV (21:07)
[2019-11-01] MEDS: CEFTRIAXONE 1 GM/50 ML FROZ.PIGGY IV (21:08)
[2019-11-01] MEDS: SERTRALINE 50 MG TABLET 150 MG PO (21:08)
[2019-11-01 21:12] VITALS: BP 117/68; PULSE 65; RESP 16; TEMP 36.9
[2019-11-01] MEDS: SODIUM CHLORIDE 0.45% 1,000 ML 75 ML IV (23:30)
[2019-11-01 23:31] LABS: RBC Urine None Seen (0-5/HPF)
[2019-11-01 23:32] LABS: Appearance Urine UA CLEAR; Bilirubin Urine UA NEGATIVE (NEGATIVE); Color Urine UA YELLOW; Glucose Urine UA NEGATIVE (Negative); Ketones Urine UA NEGATIVE (NEGATIVE); Leukocyte Esterase Urine UA 1+ (NEGATIVE); Nitrite Urine UA NEGATIVE (Negative); Occult Blood Urine UA NEGATIVE (Negative); Protein Urine UA NEGATIVE (Negative); Urobilinogen Urine UA 0.2 E.U./dL (0.2)
[2019-11-01 23:35] LABS: pH Urine UA 5.5 (4.5-8.0)
[2019-11-01 23:41] LABS: Bacteria Urine Occasional (0-1); Culture Indicated Urine Specimen Cultured; WBC Urine 1-5/HPF (0-5/HPF)
[2019-11-02] VITALS (15 sets, daily range): BP systolic 100–130; BP diastolic 48–77; PULSE 77–96; RESP 16–22; TEMP 36.6–37.1; O2SAT 93–100
[2019-11-02] MEDS: FUROSEMIDE 20 MG TABLET PO (00:15)
[2019-11-02] MEDS: methylPREDNISolone 125 MG/2 ML VIAL 60 MG IV ×3 (03:13→18:51)
[2019-11-02 05:40] LABS: Add Manual Diff / Slide Review NO; Basophils Absolute Auto 0 /uL (0-100); Eosinophils Absolute Auto 0 /uL (0-450); Hemoglobin 9.3 g/dL (12.0-16.0); Lymphocytes Absolute Auto 600 /uL (1100-4500); Lymphocytes Percent Auto 23.4 % (25-40); Mean Corpuscular HGB Conc 32.1 % (30-36); Mean Corpuscular Hemoglobin 22.7 PG (26-34); Mean Corpuscular Volume 70.6 fL (80-100); Monocytes Absolute Auto 0 /uL (0-900); Monocytes Percent Auto 1.6 % (3-14); Neutrophils Absolute Auto 1800 /uL (1500-7000); Platelet Count 256 X10^3/uL (150-400); Red Blood Cell Count 4.12 X10^6/uL (4.0-5.2); Red Cell Distribution Width 22.6 % (11.6-14.8); White Blood Cell Count 2.4 X10^3/uL (4.5-11.0)
[2019-11-02 05:50] LABS: Alanine Aminotransferase 14 IU/L (<35); Albumin 4.1 g/dL (3.5-5.0); Albumin Globulin Ratio 1.4 (1.0-2.8); Alkaline Phosphatase 78 U/L (38-126); Aspartate Aminotransferase 27 IU/L (14-36); BUN Creatinine Ratio 21.3 (6-22); Blood Urea Nitrogen 17 mg/dL (7-17); Calcium 8.8 mg/dL (8.4-10.2); Carbon Dioxide 29 mmol/L (22-32); Chloride 99 mmol/L (98-107); Estimated Glomerular Filt Rate > 60.0 mL/min (>60); Globulin 2.9 g/dL (1.7-4.1); Glucose 149 mg/dL (80-110); HEMOLYSIS < 15 (0-50); Potassium 4.4 mmol/L (3.4-5.1); Sodium 138 mmol/L (137-145)
[2019-11-02] MEDS: ACETAMINOPHEN 325 MG TABLET 650 MG PO (08:48)
[2019-11-02] MEDS: INFLUENZA VACCINE 0.5 ML SYRINGE IM (08:49)
[2019-11-02] MEDS: TIOTROPIUM BROMIDE 18 MCG INHALER INH (09:09)
[2019-11-02] MEDS: ALBUTEROL 2.5 MG/3 ML NEB (ADULT) INH ×2 (09:10→13:24)
--- NOTE | 2019-11-02 09:18 | CM.DANOTE ---
DCP: Case received, EMR reviewed and met with patient. Introduced self and role. Was able to converse with patient and obtain some baseline health and activity information. DCP assessment completed with information currently available. Patient is a 79 year old female who admitted yesterday afternoon to the care of the hospitalist team. PCP: Dr. Padilla Payer: Medicare/ Patient came to the hospital via clinic, had been seen at [facility] with increased shortness of breath. Patient has history of Pneumonia, COPD, and confirmed with patient that she does have home oxygen, but mostly uses it at night. Patient holds current diagnosis of Pneumonia. Met with patient in her room. Pleasant. She is alert and oriented. Confirmed with her that she lives down stairs, and her daughter lives upstairs. She recently started using a cane, and is independent. She mentioned that she does have some oxygen, but uses at night. She also stated that she does not drive as much as she used to. P: DCP to continue to follow and be available for any resources. She should be able to go home when medically stable, for she has supportive family. Rosita Arvizu RN/[employer]
[2019-11-02] MEDS: SODIUM CHLORIDE 0.45% 1,000 ML 75 ML IV (12:56)
--- NOTE | 2019-11-02 13:26 | PM.PN.1 ---
Subjective Subjective Date Patient Seen: 11/02/19 Time Patient Seen: 13:27 Interval history: Patient had an unremarkable night. She received 2 units of packed red blood cells and is feeling better but is still coughing excessively. She is no longer requiring oxygen. She is receiving albuterol treatments which are helpful for the coughing and her breathing and shortness of breath. She has not had a bowel movement since yesterday. She again denies having any bright red blood per rectum are black tarry stools. She is hungry. She denies any abdominal pain but does have some mid epigastric discomfort. Review of systems is negative other than subjective Exam Vital Signs (past 8 hours): - 11/02/19 07:35 11/02/19 07:50 11/02/19 09:10 Temperature 98.3 F Pulse Rate 84 77 Respiratory Rate 18 20 Blood Pressure 125/74 Pulse Oximetry 100 96 96 11/02/19 09:35 11/02/19 09:36 11/02/19 11:13 Temperature 98.8 F Pulse Rate 80 Respiratory Rate 18 Blood Pressure 100/54 L Pulse Oximetry 94 94 93 Oxygen Delivery Method Room Air Oxygen Flow Rate 0 Narrative Exam Narrative: Patient is alert and oriented x3. She is in no acute distress. Color is better. She is coughing intermittently and can't stop coughing. Her oxygen level goes down to 80s when she is coughing. Patient is audibly wheezing. Her last albuterol treatment was 7:00 a.m. HEENT is unremarkable Neck: Supple without adenopathy or masses Chest: Diffuse inspiratory expiratory wheezes. Decreased breath sounds right lower lung. No crackles. No rhonchi. No egophony Cor: Sinus tachycardia with distant S1-S2 Extremities: No edema, pulses intact Abdomen: Positive bowel sounds, soft, nontender, nondistended, no hepatosplenomegaly Rectal exam: Heme-negative, brown stool, no masses Objective Labs Result Diagrams: 11/02/19 05:05 11/02/19 05:05 Labs: Laboratory Results - last 24 hr 11/01/19 11/01/19 11/01/19 02:21 16:35 17:51 WBC 3.3 L RBC 3.26 L Hgb 6.4 L* Hct 21.6 L MCV 66.1 L MCH 19.8 L MCHC 29.9 L RDW 18.7 H Plt Count 273 Neut % (Auto) 57.4 Lymph % (Auto) 29.1 [place] % (Auto) 12.0 Eos % (Auto) 0.7 L Baso % (Auto) 0.8 Neut # (Auto) 1900 Lymph # (Auto) 1000 L [place] # (Auto) 400 Eos # (Auto) 0 Baso # (Auto) 0 RBC Morphology See below Dimorphic RBCs Hypochromasia 2+ H Microcytosis 2+ H Target Cells 1+ H ESR 37 H PT INR Sodium Potassium Chloride Carbon Dioxide BUN Creatinine Estimated GFR BUN/Creatinine Ratio Glucose Lactate Calcium Total Bilirubin AST ALT Alkaline Phosphatase C-Reactive Protein Total Protein Albumin Globulin Albumin/Globulin Ratio Procalcitonin Urine Color Yellow Urine Appearance Clear Urine pH 5.5 Ur Specific [place] 1.010 Urine Protein Negative Urine Glucose (UA) Negative Urine Ketones Negative Urine Occult Blood Negative Urine Nitrate Negative Urine Bilirubin Negative Urine Urobilinogen 0.2 Ur Leukocyte Esterase 1+ H Urine RBC None seen Urine WBC 1-5/hpf Urine Bacteria Occasional (0-1) Ur Culture Indicated? Specimen cultured Chlamy pneumoniae PCR Not detected Adenovirus (PCR) Not detected B.parapertussis DNA PCR Not detected Coronavirus OC43 (PCR) Not detected Coronavirus HKU1 (PCR) Not detected Coronavirus 229E (PCR) Not detected Coronavirus NL63 (PCR) Not detected Human Metapneumovir PCR Not detected Influenza Type A (PCR) Not detected Influenza Type B (PCR) Not detected M. pneumoniae (PCR) Not detected Parainfluenza 1 (PCR) Not detected Parainfluenza 2 (PCR) Not detected Parainfluenza 3 (PCR) Not detected Parainfluenza 4 (PCR) Not detected RSV (PCR) Not detected Entero/Rhino (PCR) Not detected Blood Type Antibody Screen Crossmatch 11/01/19 11/01/19 11/01/19 17:51 17:51 17:51 WBC RBC Hgb Hct MCV MCH MCHC RDW Plt Count Neut % (Auto) Lymph % (Auto) [place] % (Auto) Eos % (Auto) Baso % (Auto) Neut # (Auto) Lymph # (Auto) [place] # (Auto) Eos # (Auto) Baso # (Auto) RBC Morphology Dimorphic RBCs Hypochromasia Microcytosis Target Cells ESR PT INR Sodium 140 Potassium 4.0 Chloride 105 Carbon Dioxide 26 BUN 14 Creatinine 0.90 Estimated GFR > 60.0 BUN/Creatinine Ratio 15.6 Glucose 105 Lactate 1.1 Calcium 9.0 Total Bilirubin 0.2 AST 28 ALT 12 Alkaline Phosphatase 83 C-Reactive Protein 1.1 H Total Protein 6.9 Albumin 4.2 Globulin 2.7 Albumin/Globulin Ratio 1.6 Procalcitonin < 0.05 Urine Color Urine Appearance Urine pH Ur Specific [place] Urine Protein Urine Glucose (UA) Urine Ketones Urine Occult Blood Urine Nitrate Urine Bilirubin Urine Urobilinogen Ur Leukocyte Esterase Urine RBC Urine WBC Urine Bacteria Ur Culture Indicated? Chlamy pneumoniae PCR Adenovirus (PCR) B.parapertussis DNA PCR Coronavirus OC43 (PCR) Coronavirus HKU1 (PCR) Coronavirus 229E (PCR) Coronavirus NL63 (PCR) Human Metapneumovir PCR Influenza Type A (PCR) Influenza Type B (PCR) M. pneumoniae (PCR) Parainfluenza 1 (PCR) Parainfluenza 2 (PCR) Parainfluenza 3 (PCR) Parainfluenza 4 (PCR) RSV (PCR) Entero/Rhino (PCR) Blood Type Antibody Screen Crossmatch 11/01/19 11/01/19 11/02/19 17:51 17:51 05:05 WBC 2.4 L RBC 4.12 Hgb 9.3 L Hct 29.0 L MCV 70.6 L D MCH 22.7 L MCHC 32.1 RDW 22.6 H Plt Count 256 Neut % (Auto) 75.0 Lymph % (Auto) 23.4 L [place] % (Auto) 1.6 L Eos % (Auto) 0.0 L Baso % (Auto) 0.0 Neut # (Auto) 1800 Lymph # (Auto) 600 L [place] # (Auto) 0 Eos # (Auto) 0 Baso # (Auto) 0 RBC Morphology See below Dimorphic RBCs * Hypochromasia Microcytosis Target Cells ESR PT 11.2 INR 1.0 Sodium Potassium Chloride Carbon Dioxide BUN Creatinine Estimated GFR BUN/Creatinine Ratio Glucose Lactate Calcium Total Bilirubin AST ALT Alkaline Phosphatase C-Reactive Protein Total Protein Albumin Globulin Albumin/Globulin Ratio Procalcitonin Urine Color Urine Appearance Urine pH Ur Specific [place] Urine Protein Urine Glucose (UA) Urine Ketones Urine Occult Blood Urine Nitrate Urine Bilirubin Urine Urobilinogen Ur Leukocyte Esterase Urine RBC Urine WBC Urine Bacteria Ur Culture Indicated? Chlamy pneumoniae PCR Adenovirus (PCR) B.parapertussis DNA PCR Coronavirus OC43 (PCR) Coronavirus HKU1 (PCR) Coronavirus 229E (PCR) Coronavirus NL63 (PCR) Human Metapneumovir PCR Influenza Type A (PCR) Influenza Type B (PCR) M. pneumoniae (PCR) Parainfluenza 1 (PCR) Parainfluenza 2 (PCR) Parainfluenza 3 (PCR) Parainfluenza 4 (PCR) RSV (PCR) Entero/Rhino (PCR) Blood Type B Positive Antibody Screen Negative Crossmatch See Detail 11/02/19 05:05 WBC RBC Hgb Hct MCV MCH MCHC RDW Plt Count Neut % (Auto) Lymph % (Auto) [place] % (Auto) Eos % (Auto) Baso % (Auto) Neut # (Auto) Lymph # (Auto) [place] # (Auto) Eos # (Auto) Baso # (Auto) RBC Morphology Dimorphic RBCs Hypochromasia Microcytosis Target Cells ESR PT INR Sodium 138 Potassium 4.4 Chloride 99 Carbon Dioxide 29 BUN 17 Creatinine 0.80 Estimated GFR > 60.0 BUN/Creatinine Ratio 21.3 Glucose 149 H Lactate Calcium 8.8 Total Bilirubin 1.0 AST 27 ALT 14 Alkaline Phosphatase 78 C-Reactive Protein Total Protein 7.0 Albumin 4.1 Globulin 2.9 Albumin/Globulin Ratio 1.4 Procalcitonin Urine Color Urine Appearance Urine pH Ur Specific [place] Urine Protein Urine Glucose (UA) Urine Ketones Urine Occult Blood Urine Nitrate Urine Bilirubin Urine Urobilinogen Ur Leukocyte Esterase Urine RBC Urine WBC Urine Bacteria Ur Culture Indicated? Chlamy pneumoniae PCR Adenovirus (PCR) B.parapertussis DNA PCR Coronavirus OC43 (PCR) Coronavirus HKU1 (PCR) Coronavirus 229E (PCR) Coronavirus NL63 (PCR) Human Metapneumovir PCR Influenza Type A (PCR) Influenza Type B (PCR) M. pneumoniae (PCR) Parainfluenza 1 (PCR) Parainfluenza 2 (PCR) Parainfluenza 3 (PCR) Parainfluenza 4 (PCR) RSV (PCR) Entero/Rhino (PCR) Blood Type Antibody Screen Crossmatch Assessment & Plan Assessment & Plan narrative: 79-year-old female admitted for hypoxemia suspected to be related to COPD exacerbation, possible pneumonia and profound anemia. Assessment 1.: Profound anemia. It initially thought this may be recurrence upper GI bleed. She is guaiac negative and does not give history of melanotic stools. It's quite possible that this represents bone marrow disorder. She has had a good response to the blood transfusion. I have put in a consult for Oncology and have left a message to discuss with Dr. Juarez. In the meantime we will keep her on a proton pump inhibitor. We will guaiac all her stools. We will recheck labs in the a.m. and if she does not have a decrease in her hemoglobin hematocrit we will consider workup as outpatient. If there is a decreased we will wait and have Oncology see her in the hospital. If her stools become guaiac positive then she will need endoscopy. Assessment 2. Hypoxemia suspect multifactorial. Persistent symptoms. Unclear if there is a bacterial component but at this point we will continue IV antibiotics until her cultures come back. Will increase frequency of albuterol nebulizers. Will continue with oxygen support as needed. Will continue with outpatient Spiriva. Will increase IV Solu-Medrol. Will treat her cough. Will check BNP to ensure there's not evidence of fluid overload. Cultures pending. Assessment 3. History of gastric ulcer, Den type, no clear evidence of recurrence Plan: Will continue to monitor closely Assessment 4. Depression stable Plan: Continue on Zoloft.
[2019-11-02 14:14] LABS: B Type Natriuretic Peptide 153 (<100)
[2019-11-02] MEDS: guaiFENesin/DEXTROMETH Syrup 5 ML SYRUP PO (14:15)
--- NOTE | 2019-11-02 14:57 | PC.NURSE ---
Resp: Several episodes of hard coughing, then they resolved. Got some cough syrup this afternoon and she reports it helps. Knows she has percocet available and this will help for cough as well but she declined use. Had several breathing treatments. She reports these are helpful. She says she feels much better after her blood, dizziness is gone, uses cane when up going to the bathroom. Resting quietly at this moment. Cont w/poc.
--- NOTE | 2019-11-02 15:45 | PT.IIE ---
Current Diagnoses Hypoxemia (11/01/19) Surgical History (Last Reviewed 07/06/19 @ 09:35 by Jese Sosa MD) S/P lobectomy of lung (Acute) Medical History (Last Reviewed 07/06/19 @ 09:35 by Jese oSsa MD) COPD (chronic obstructive pulmonary disease) (Acute) GERD (gastroesophageal reflux disease) (Acute) Lung cancer (Acute) Lung nodule (Acute) Lymphoma (Acute) Physical Therapy Inpatient Evaluation/Re-Eval M1 PT/OT-IP Prior Functional Status Start: 11/02/19 17:33 Freq: NEEDED Status: Active Protocol: Document 11/02/19 15:45 AB (Rec: 11/02/19 17:43 AB [id number]) Medical Review Prior Functional Status Medical History Reviewed Yes Communication able to make needs known Mobility and Gait pt stated that she is independent with all mobilities and ambulation without AD but has been using a SPC for the last week due to knee pain; stated that she uses O2 on and off at home Social History Household Members family,children,none Living Arrangements House Number of Floors (Floors) 3 or More Floors Number of Stairs To Enter/Railing? no steps to enter; pt stays on main level of the house Home Environment High Toilet,Walk in Shower Home Equipment Four Wheel Walker,Straight Cane,Hand Held Shower Additional Social History Comment pt will have her daughter to assist her M2 PT-IP Current Condition Start: 11/02/19 17:33 Freq: NEEDED Status: Active Protocol: Document 11/02/19 15:45 AB (Rec: 11/02/19 17:43 AB [id number]) Physical Therapy Current Condition Current Condition Evaluation Date 11/02/19 Treatment Diagnosis COPD exacerbation; anemia; generalized weakness Onset Date 11/01/2019 M3 PT-IP Subjective Start: 11/02/19 17:33 Freq: NEEDED Status: Active Protocol: Document 11/02/19 15:45 AB (Rec: 11/02/19 17:43 AB [id number]) Subjective Physical Therapy Visit Type Type Initial Evaluation Visit Start Time 15:45 Visit Stop Time 16:09 Total Visit Minutes 24 Number of TERRITORY SALES CONSULTANT Visits 0 Physical Therapy Visit Comments Patient Comments pt agreeable to do PT Therapy Pain Assessment Pain Present Pain Present Denied Pain M4 PT-IP Mobility and Gait Start: 11/02/19 17:33 Freq: NEEDED Status: Active Protocol: Document 11/02/19 15:45 AB (Rec: 11/02/19 17:43 AB [id number]) PT-Bed Mobility Assessment Supine to Sit Supine to Sit Standby Assistance PT-Transfer Assessment Sit to and From Stand Sit to and from Stand Contact Guard Assistance Equipment Transfer Assistive Device Gait Belt,Front Wheeled Walker Orthotic/Prosthetic Devices or Brace: No Transfers Transfer Destination Chair Transfer Technique ambulated using FWW Transfer Ability Level of Assist Contact Guard Assistance,1 Person Assistance,Use of Upper Extremities Comments Mobility Comments pt completed supine to sit SBA . O2 sat at room air 96%. pt completed sit to stand CGA and ambulated using FWW ~ 150 ft. O2 sat: 95% pt agreed to sit up on chair and ambulated towards the chair. attempted to assess ambulation using SPC but pt refused. stated that she is tired but willing to do it tomorrow. set pt on chair . call light and table placed within reach. Gait Assessment Gait Gait Assistance Required: Contact Guard Assist Distance (Feet) 150 Able to Maintain Weight Bearing Status Yes During Gait Assistive Devices Assistive Device Gait Belt,Front Wheeled Walker Orthotic/Prosthetic Devices or Brace: No Gait Deviations General Gait Pattern Decreased Stride Length, Decreased Feet Clearance Factors Limiting Gait Function Factors Limiting Gait Function Decreased Activity Tolerance, Poor Balance,Poor Safety Awareness,Respiratory Distress Comments Gait Comments pls refer to mobility section for details PT-Balance Assessment Sitting Balance and Reactions Static Sitting Balance Ability Good Dynamic Sitting Balance Ability Good Standing Balance and Reactions Static Standing Balance Ability Fair Dynamic Standing Balance Ability Fair Device Used FWW M5 PT-IP Objective Assessments Start: 11/02/19 17:33 Freq: NEEDED Status: Active Protocol: Document 11/02/19 15:45 AB (Rec: 11/02/19 17:43 AB [id number]) Orientation Orientation/Cognition Level of Alertness Alert Orientation Name,Place,Situation Gross Range of Motion Lower Extremity ROM Assessment Within Functional Limits Strength Lower Extremity Strength Assessment Within Functional Limits Coordination Assessment Gross Coordination Gross Coordination WNL Sensation Assessment Sensation Gross Sensation WNL Muscle Tone Muscle Tone WNL Yes M6 PT-IP Treatment Start: 11/02/19 17:33 Freq: NEEDED Status: Active Protocol: Document 11/02/19 15:45 AB (Rec: 11/02/19 17:43 AB [id number]) Physical Therapy Treatment Education Education Provided Safety M7 PT-IP Assessment and Plan Start: 11/02/19 17:33 Freq: NEEDED Status: Active Protocol: Document 11/02/19 15:45 AB (Rec: 11/02/19 17:43 AB [id number]) PT Summary Assessment and Plan Potential Rehabilitation Potential Good Status of Condition at Evaluation Stable Summary Impairments Pain,ROM,Strength,Balance,Bed Mobility,Transfers,Gait, Activity Tolerance Assessment Summary pt requires CGA with mobility using FWW. pt usually ambulates without AD but has been using a SPC for the last week. Will assess safety with use of least restrictive device next tx session. pt presents with decrease activity tolerance affecting level of assistance. pt has her family at home to assist her. pt may go home when medically stable but will benefit from outpt PT/ cardiopulmo rehab. Goals Bed Mobility Goal Independent Transfer Goal Independent,Cane,Four Wheeled Walker Gait Goal Independent,Cane,Four Wheel Walker Gait Distance 200 Days to Meet Goals 5 Frequency of Treatment Frequency Of Treatment Once a Day Treatment Plan Physical Therapy Treatment Plan Bed Mobility Training,Transfer Training,Gait Training, Therapeutic Exercise,Balance Retraining,Discharge Planning, Neuromuscular Re-ed Recommendations To Nursing Amount of Assist Needed 1 Person Assist Discharge Recommendations PT Discharge Recommendations Home with Assistance, Outpatient PT Equipment Needed for Home Before FWW if not safe with 4WW/SPC Discharge
[2019-11-02] MEDS: CEFTRIAXONE 1 GM/50 ML FROZ.PIGGY IV (18:52)
[2019-11-02] MEDS: AZITHROMYCIN 250 MG in DEXTROSE 5% IN WATER 250 ML IV (20:32)
[2019-11-02] MEDS: SERTRALINE 50 MG TABLET 150 MG PO (20:51)
[2019-11-02] MEDS: PANTOPRAZOLE 40 MG VIAL IV (20:51)
[2019-11-03] VITALS (9 sets, daily range): BP systolic 115–143; BP diastolic 63–93; PULSE 71–106; RESP 16–21; TEMP 36.3–37; O2SAT 93–97
[2019-11-03] MEDS: methylPREDNISolone 125 MG/2 ML VIAL 60 MG IV ×4 (01:15→19:02)
[2019-11-03] MEDS: SODIUM CHLORIDE 0.45% 1,000 ML 75 ML IV (04:16)
[2019-11-03 05:45] LABS: Basophils Absolute Auto 0 /uL (0-100); Basophils Percent Auto 0.1 % (0-2); Eosinophils Absolute Auto 0 /uL (0-450); Hematocrit 27.1 % (36-46); Hemoglobin 8.8 g/dL (12.0-16.0); Lymphocytes Absolute Auto 300 /uL (1100-4500); Lymphocytes Percent Auto 7.7 % (25-40); Mean Corpuscular HGB Conc 32.3 % (30-36); Mean Corpuscular Hemoglobin 22.8 PG (26-34); Mean Corpuscular Volume 70.6 fL (80-100); Monocytes Absolute Auto 100 /uL (0-900); Monocytes Percent Auto 3.3 % (3-14); Neutrophils Absolute Auto 3900 /uL (1500-7000); Neutrophils Percent Auto 88.9 % (50-75); Platelet Count 231 X10^3/uL (150-400); Red Blood Cell Count 3.84 X10^6/uL (4.0-5.2); White Blood Cell Count 4.4 X10^3/uL (4.5-11.0)
[2019-11-03 05:50] LABS: Add Manual Diff / Slide Review SLIDE REVIEW
[2019-11-03 05:54] LABS: BUN Creatinine Ratio 26.7 (6-22); Blood Urea Nitrogen 16 mg/dL (7-17); Calcium 8.5 mg/dL (8.4-10.2); Carbon Dioxide 28 mmol/L (22-32); Chloride 101 mmol/L (98-107); Estimated Glomerular Filt Rate > 60.0 mL/min (>60); Glucose 155 mg/dL (80-110); HEMOLYSIS < 15 (0-50); Potassium 4.2 mmol/L (3.4-5.1); Sodium 135 mmol/L (137-145)
[2019-11-03 07:08] LABS: Anisocytosis 2+; Microcytosis 1+
[2019-11-03 07:10] LABS: Hypochromasia 2+
--- NOTE | 2019-11-03 08:39 | P.PN_ITS ---
Subjective Subjective Date Patient Seen: 11/03/19 Time Patient Seen: 08:39 Interval history: Patient feeling better steroids were increased yesterday. Patient was up ambulating yesterday and heart rates were in the 120s to 130s just walking to the bathroom. Today she was in the low 100s feeling feeling better. Less short of breath. Having no chest pain. No change in bowel movements. Energy level slightly better today. Exam Vital Signs (past 8 hours): - 11/03/19 04:05 11/03/19 08:00 Temperature 98.0 F 98.1 F Pulse Rate 85 88 Respiratory Rate 18 16 Blood Pressure 135/68 143/78 H Pulse Oximetry 95 94 Oxygen Delivery Method Room Air Oxygen Flow Rate 0 Narrative Exam Narrative: Alert smiling female in no acute distress. HEENT exam mucous membranes moist. Neck supple without adenopathy. Lungs with mild diffuse wheezes. Heart regular rate and rhythm without murmurs clicks rubs or gallops abdomen is benign. No other changes. Extremities without cyanosis clubbing edema. No calf tenderness. Objective Labs Result Diagrams: 11/03/19 05:00 11/03/19 05:00 Labs: Laboratory Results - last 24 hr 11/02/19 11/03/19 11/03/19 05:05 05:00 05:00 WBC 4.4 L D RBC 3.84 L Hgb 8.8 L Hct 27.1 L MCV 70.6 L MCH 22.8 L MCHC 32.3 RDW 23.0 H Plt Count 231 Neut % (Auto) 88.9 H Lymph % (Auto) 7.7 L [place] % (Auto) 3.3 Eos % (Auto) 0.0 L Baso % (Auto) 0.1 Neut # (Auto) 3900 Lymph # (Auto) 300 L [place] # (Auto) 100 Eos # (Auto) 0 Baso # (Auto) 0 RBC Morphology See below Hypochromasia 2+ H Anisocytosis 2+ H Microcytosis 1+ H Sodium 135 L Potassium 4.2 Chloride 101 Carbon Dioxide 28 BUN 16 Creatinine 0.60 Estimated GFR > 60.0 BUN/Creatinine Ratio 26.7 H Glucose 155 H Calcium 8.5 B-Natriuretic Peptide 153 H Assessment & Plan Assessment & Plan narrative: Hypoxemia shortness of breath. Appears to have responded pretty well to Solu-Medrol but due to the fact that she was profoundly tachycardic with 10 ft walk and improved today I think giving her 1 more day with IV steroids would be appropriate. Should be able to discharge tomorrow. Patient understands questions answered. Profound anemia. Secondary to probable bone marrow disorder. Unclear. Still dropped 2 points. Will need to check tomorrow and make sure stable. Before discharge. Patient has been of reluctant participant her healthcare has not been following up on a regular basis without significant symptoms and it would be safest to know that she is not dropping too much more before discharge. Patient understands questions answered. History of gastric ulcers stable. No change at this time. Depression. Appears to be stable on Zoloft will follow. Actually quite alert today. Weakness. Will have PT see today for ADL of bowel and evaluation. Disposition. High think it was prudent to keep her 24 more hours. At that point will discharge to home. If all stable depending on blood counts and respiratory status. Patient understands questions answered. Time Spent With Patient Time with patient: 25 - 35 minutes
[2019-11-03] MEDS: ALBUTEROL 2.5 MG/3 ML NEB (ADULT) INH ×3 (10:05→19:43)
[2019-11-03] MEDS: FLUTICASONE/SALMETEROL 250/50 60 PUFF DISKUS INH ×2 (10:06→19:44)
[2019-11-03] MEDS: TIOTROPIUM BROMIDE 18 MCG INHALER INH (10:06)
--- NOTE | 2019-11-03 11:15 | PT.IPTN ---
Current Diagnoses Hypoxemia (11/01/19) Physical Therapy Treatment Note M2 PT-IP Current Condition Start: 11/02/19 17:33 Freq: NEEDED Status: Active Protocol: Document 11/02/19 15:45 AB (Rec: 11/02/19 17:43 AB [id number]) Physical Therapy Current Condition Current Condition Evaluation Date 11/02/19 Treatment Diagnosis COPD exacerbation; anemia; generalized weakness Onset Date 11/01/2019 M3 PT-IP Subjective Start: 11/02/19 17:33 Freq: NEEDED Status: Active Protocol: Document 11/03/19 11:15 AB (Rec: 11/03/19 11:46 AB [id number]) Subjective Physical Therapy Visit Type Type Treatment Note Visit Start Time 11:15 Visit Stop Time 11:27 Total Visit Minutes 12 Number of DISASTER OR DAMAGE CONTROL SPECIALIST Visits 0 Physical Therapy Visit Comments Patient Comments pt agreeable to do PT M4 PT-IP Mobility and Gait Start: 11/02/19 17:33 Freq: NEEDED Status: Active Protocol: Document 11/03/19 11:15 AB (Rec: 11/03/19 11:46 AB [id number]) PT-Bed Mobility Assessment Supine to Sit Supine to Sit Standby Assistance PT-Transfer Assessment Sit to and From Stand Sit to and from Stand Standby Assistance,1 Person Assistance Equipment Transfer Assistive Device Gait Belt Orthotic/Prosthetic Devices or Brace: No Transfers Transfer Destination Chair Transfer Technique ambulated without AD Transfer Ability Level of Assist Contact Guard Assistance Gait Assessment Gait Gait Assistance Required: Contact Guard Assist Distance (Feet) 150 Able to Maintain Weight Bearing Status Yes During Gait Assistive Devices Assistive Device None,Gait Belt Orthotic/Prosthetic Devices or Brace: No Factors Limiting Gait Function Factors Limiting Gait Function Decreased Activity Tolerance, Decreased Strength,Poor Balance,Respiratory Distress Comments Gait Comments pt ambulated 150 ft x 2 requiring CGA and cues without AD. pt presents with unsteady gait and unable to walk a straight path but without LOB. requires CGA and cues for safety. O2 sat decreased to 88% with ambulation but with good recovery to 93% with rest and deep breathing. M5 PT-IP Objective Assessments Start: 11/02/19 17:33 Freq: NEEDED Status: Active Protocol: Document 11/02/19 15:45 AB (Rec: 11/02/19 17:43 AB [id number]) Orientation Orientation/Cognition Level of Alertness Alert Orientation Name,Place,Situation Gross Range of Motion Lower Extremity ROM Assessment Within Functional Limits Strength Lower Extremity Strength Assessment Within Functional Limits Coordination Assessment Gross Coordination Gross Coordination WNL Sensation Assessment Sensation Gross Sensation WNL Muscle Tone Muscle Tone WNL Yes M6 PT-IP Treatment Start: 11/02/19 17:33 Freq: NEEDED Status: Active Protocol: Document 11/03/19 11:15 AB (Rec: 11/03/19 11:46 AB [id number]) Physical Therapy Treatment Education Education Provided Safety M7 PT-IP Assessment and Plan Start: 11/02/19 17:33 Freq: NEEDED Status: Active Protocol: Document 11/03/19 11:15 AB (Rec: 11/03/19 11:46 AB [id number]) PT Summary Assessment and Plan Potential Rehabilitation Potential Good Summary Impairments Strength,Balance,Bed Mobility, Transfers,Gait,Activity Tolerance Progress Towards Goals Slow Progress due to Activity Tolerance Assessment Summary pt progressing with mobility, able to ambulate today without AD but requires CGA and cues. continues to have decrease activity tolerance with decrease in O2 sat with ambulation to ~ 88%. pt plans to go home and will have family to assist her. pt will benefit from outpt PT/ cardiopulmo rehab to improve strength, activity tolerance. Goals Bed Mobility Goal Independent Transfer Goal Independent Gait Goal Independent Gait Distance 200 Days to Meet Goals 5 Frequency of Treatment Frequency Of Treatment Once a Day Treatment Plan Physical Therapy Treatment Plan Bed Mobility Training,Transfer Training,Gait Training, Therapeutic Exercise,Balance Retraining,Discharge Planning, Neuromuscular Re-ed Recommendations To Nursing Amount of Assist Needed 1 Person Assist Discharge Recommendations PT Discharge Recommendations Home with Assistance, Outpatient PT Equipment Needed for Home Before - Discharge
[2019-11-03] MEDS: GUAIFENESIN/DM 200/20 MG/10 ML UDC 5 ML PO (12:29)
--- NOTE | 2019-11-03 15:02 | PC.NURSE ---
Resp: Feels better today. Breathing better, not coughing as much or as hard. Cough syrup x1 and was effective. Denies pain and has declined percocet for cough or pain. Up in room with cane and did get a shower. Better activity tolerance today with the heart going only to the low 100's when moving. Resting comfortably at the moment.
[2019-11-03] MEDS: CEFTRIAXONE 1 GM/50 ML FROZ.PIGGY IV (19:02)
[2019-11-03] MEDS: SERTRALINE 50 MG TABLET 150 MG PO (20:17)
[2019-11-03] MEDS: PANTOPRAZOLE 40 MG VIAL IV (20:18)
[2019-11-03] MEDS: AZITHROMYCIN 250 MG in DEXTROSE 5% IN WATER 250 ML IV (20:18)
[2019-11-03] MEDS: ACETAMINOPHEN 325 MG TABLET 650 MG PO (23:27)
[2019-11-04] MEDS: methylPREDNISolone 125 MG/2 ML VIAL 60 MG IV ×2 (01:13→06:48)
[2019-11-04] MEDS: SODIUM CHLORIDE 0.9% FLUSH 10 ML IV (01:20)
[2019-11-04 03:30] VITALS: BP 137/73; PULSE 86; RESP 16; TEMP 35.7; O2SAT 94
[2019-11-04 07:21] LABS: Add Manual Diff / Slide Review NO; Basophils Absolute Auto 0 /uL (0-100); Eosinophils Absolute Auto 0 /uL (0-450); Hematocrit 28.3 % (36-46); Hemoglobin 9.1 g/dL (12.0-16.0); Lymphocytes Absolute Auto 500 /uL (1100-4500); Lymphocytes Percent Auto 5.3 % (25-40); Mean Corpuscular HGB Conc 32.2 % (30-36); Mean Corpuscular Hemoglobin 22.9 PG (26-34); Mean Corpuscular Volume 70.9 fL (80-100); Monocytes Absolute Auto 300 /uL (0-900); Monocytes Percent Auto 3.5 % (3-14); Neutrophils Absolute Auto 8100 /uL (1500-7000); Neutrophils Percent Auto 91.2 % (50-75); Platelet Count 258 X10^3/uL (150-400); Red Blood Cell Count 3.99 X10^6/uL (4.0-5.2); Red Cell Distribution Width 23.1 % (11.6-14.8); White Blood Cell Count 8.9 X10^3/uL (4.5-11.0)
[2019-11-04 07:49] LABS: Anisocytosis 2+; Microcytosis 1+
[2019-11-04 07:50] LABS: Hypochromasia 2+
[2019-11-04 08:00] VITALS: BP 140/78; PULSE 76; RESP 16; TEMP 36.2; O2SAT 94
--- NOTE | 2019-11-04 08:25 | PM.DS.1 ---
History of Present Illness History of Present Illness Chief complaint: HYPOXEMIA Narrative: This is a very pleasant 79-year-old female who presented for a scheduled appointment at the clinic today but was found to have significant hypoxemia with O2 saturations on room air in the 80th percentile. She was extremely weak and worsened shortness of breath with any exertion. The patient was admitted to the hospital for further workup and evaluation and was found to be profoundly anemic. The patient has had progressive worsening in her condition over the last several months and then more significantly over the past 2 weeks. She lives in the downstairs part of the house and 1 of her daughters lives in the upstairs part of the house. Her daughter has been insisting and bagging her to have an appointment with me but she has been resistant. She then developed left shoulder pain and knee pain and was concerned about possible recurrence of her non-Hodgkin's lymphoma. The patient states that last week she had URI symptoms with chills no fever but worsening cough and shortness of breath. She is complaining of bilateral upper extremities being numb as well as her left arm has a lump near the shoulder and had sudden onset of pain to the point that she can barely move it. She is not having any injury. The right arm is not painful. Her right knee began giving her pain and giving out on her a couple weeks ago as well and she started using a cane. Past medical history: 1. Bronchiectasis 2. Recurrent pneumonia status post right middle lobe and lower lobe pneumonectomy due to nonfunctioning and recurrent infection. 3. COPD 4. immunodeficiency currently not being treated 5. Previous history of tobacco abuse 6. History of gastric ulcer status post GI hemorrhage 7. Anemia 8. Neutropenia 9. Recurrent non-Hodgkin's lymphoma, not active for approximately 5 years 10. Hyperlipidemia 11. Gastroesophageal reflux disease 12. Depression Allergies no known drug allergies Past surgical history: 1. 12/2003 exploratory laparoscopy 2. August [address] Morejon 3. December 07, 2009 right middle lobe and lower lobe pneumonectomy 4. 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 She lives in in a [place] with her daughter living above her. She is but and her lives in [place]. She has 2 daughters and a son and many grandchildren Review of systems: Negative for any chest pain. Negative for any palpitations. She has had a 5 lb weight loss since she was last seen approximately 3-4 months ago She denies night sweats She denies headache She denies worsening depression She denies hematemesis or bright blood per rectum or black tarry stools or hematochezia. She has had a decreased appetite. She has had increasing shortness of breath. She has had increase in her cough. She has not had any urine symptoms. Discharge Providers Provider Date of admission: 11/03/19 14:55 Discharge Date: 11/04/19 Primary care physician: Ayaka Padilla MD Consults: 11/01/19 19:13 Consult to Respiratory Therapy Evaluate & Treat Comment: Physician Instructions: Evaluate and treat 11/02/19 13:38 Consult to Physical Therapy Evaluate & Treat Comment: Physician Instructions: Evaluate and Treat 11/03/19 08:38 Consult to Physical Therapy Evaluate & Treat Comment: weakness adl evaluation Physician Instructions: Evaluate and Treat 11/03/19 10:05 Consult to Occupational Therapy Evaluate & Treat Comment: Physician Instructions: Evaluate and treat Discharge provider: Ayaka Padilla MD Summary Hospital Course Discharge Diagnosis: Severe microcytic anemia with neutropenia improved Hypoxemia, improved COPD exacerbation, improved Tension headache No evidence of GI bleed Hospital Course: Patient admitted to the hospital with profound anemia and hypoxemia. She was transfused 2 units of packed red blood cells. She was treated for pneumonia. Cultures are negative. She was treated with IV steroids which seemed to have made the most difference including the blood as well as respiratory therapy. She was evaluated by Physical therapy and they discharged her from services issues doing well. She is discharged home on hospital day 4. With improved condition. Telephone conversation with Dr. Pink and he felt that possible bone marrow etiology of severe anemia neutropenia and he will see her as an outpatient. Her stools were guaiac negative. She received 2 units packed red blood cells and maintained appropriate response to this. She will be discharged home in improved condition. Appointment as outpatient with Dr. Pink. His office calling her. Appointment with me next week. Discharge medications will involve home medications including Advair, Spiriva, Lipitor, Nexium 40 mg daily, albuterol nebulizers as needed, sertraline 150 mg daily and 1 more day of azithromycin and 6 days of Augmentin. Will be on a prednisone taper. Status at Discharge Cognitive/behavioral status at discharge: oriented Functional status at discharge: independent ambulation Overall status at discharge: patient is progressing back to baseline Time Spent with Patient Time spent: Greater than 30 minutes Exam Vital Signs (past 8 hours): - 11/04/19 03:30 11/04/19 08:00 Temperature 96.3 F L 97.2 F L Pulse Rate 86 76 Respiratory Rate 16 16 Blood Pressure 137/73 140/78 Pulse Oximetry 94 94 Oxygen Delivery Method Room Air Oxygen Flow Rate 0 Narrative Exam Narrative: Patient alert and oriented in no apparent distress sitting in hospital bed. Afebrile vital signs are stable. She is no longer audibly wheezing. She is not having coughing attacks. HEENT: Unremarkable, mucous membranes moist and pink Neck: Supple without adenopathy or thyromegaly. Patient does have tenderness over trapezius muscle Chest: Clear to auscultation without wheezes rhonchi or crackles Cor: Regular rate and rhythm without tachycardia, distant S1-S2 Abdomen: Positive bowel sounds, soft, nontender, nondistended Extremities: No edema, pulses intact Bilateral upper extremities neurovascularly intact. Tenderness lateral trapezius on the left Objective Labs Result Diagrams: 11/04/19 07:06 11/03/19 05:00 Labs: Laboratory Results - last 24 hr 11/04/19 07:06 WBC 8.9 D RBC 3.99 L Hgb 9.1 L Hct 28.3 L MCV 70.9 L MCH 22.9 L MCHC 32.2 RDW 23.1 H Plt Count 258 Neut % (Auto) 91.2 H Lymph % (Auto) 5.3 L Randall % (Auto) 3.5 Eos % (Auto) 0.0 L Baso % (Auto) 0.0 Neut # (Auto) 8100 H Lymph # (Auto) 500 L Randall # (Auto) 300 Eos # (Auto) 0 Baso # (Auto) 0 RBC Morphology See below Hypochromasia 2+ H Anisocytosis 2+ H Microcytosis 1+ H Discharge Plan Discharge Plan Patient Disposition: Home Discharge orders & Medications Prescriptions: Continued atorvastatin [Lipitor] 10 MG tablet 10 mg PO HS Qty: 0 RF: 0 sertraline [Zoloft] 25 MG tablet 150 mg PO QDAY Qty: 0 RF: 0 acetaminophen 650 mg Tablet Extended Release 650 mg PO Q4H PRN (Reason: pain) Qty: 0 RF: 0 oxycodone-acetaminophen 5-325 mg Tablet 1 tab PO Q4H Qty: 0 RF: 0 fluticasone propion-salmeterol [Advair Diskus] 100 MCG/50 MCG blister with device 1 puff INH BIDRT Qty: 0 RF: 0 albuterol sulfate 2.5 mg /3 mL (0.083 %) solution for nebulization 1 neb Inhalation PRN PRN (Reason: shortness of breath) RF: 0 albuterol sulfate 90 mcg/actuation HFA aerosol inhaler 1 puff Inhalation PRN PRN (Reason: Shortness Of Breath) RF: 0 esomeprazole magnesium 40 mg capsule,delayed release(DR/EC) 40 mg PO DAILY Qty: 30 RF: 0 Discontinued sucralfate 100 mg/mL Suspension 1 gm PO Q6HR Qty: 1000 RF: 2 Follow up/Referrals: Ayaka Padilla MD [Primary Care Provider] - Discharge Data Primary Care Provider: Ayaka Padilla
--- NOTE | 2019-11-04 10:34 | OT.IP.EVAL ---
Current Diagnoses Hypoxemia (11/03/19) Past Medical History (Last Reviewed 07/06/19 @ 09:35 by Jese Sosa MD) COPD (chronic obstructive pulmonary disease) (Acute) GERD (gastroesophageal reflux disease) (Acute) Lung cancer (Acute) Lung nodule (Acute) Lymphoma (Acute) Surgical History (Last Reviewed 07/06/19 @ 09:35 by Jese Sosa MD) S/P lobectomy of lung (Acute) Occupational Therapy Inpatient Evaluation/Re-Eval M1 PT/OT-IP Prior Functional Status Start: 11/02/19 17:33 Freq: NEEDED Status: Active Protocol: Document 11/04/19 12:58 CGR (Rec: 11/04/19 13:10 CGR [id number]) Medical Review Prior Functional Status Medical History Reviewed Yes Communication able to make needs known Mobility and Gait pt stated that she is independent with all mobilities and ambulation without AD but has been using a SPC for the last week due to knee pain; stated that she uses O2 at night time. Activities of Daily Living and IADL's Pt was IND in all ADLs Prior Functional Level (Other details) Pt lives with her daughter and has her space on the lower level of the home. She often climbs the stairs to spend time with her daughter and 3 grandkids on the second floor. Social History Household Members family,children Living Arrangements House Number of Floors (Floors) 3 or More Floors Number of Stairs To Enter/Railing? no steps to enter; pt stays on main level of the house unless daughter is present Home Environment High Toilet,Tub/Shower Doors Home Equipment Straight Cane,Bedside Commode, Hand Held Shower Employment Status Retired Additional Social History Comment pt will have her daughter to assist her. Information obtained on this date is different than what was reported to P.T. M2 OT-IP Current Condition Start: 11/04/19 12:57 Freq: Status: Active Protocol: Document 11/04/19 12:58 CGR (Rec: 11/04/19 13:10 CGR [id number]) Occupational Therapy Current Condition Current Condition Evaluation Date 11/04/19 Treatment Diagnosis COPD exacerbation Diagnosis Onset Date 11/03/19 M3 OT- IP Subjective and Pain Start: 11/04/19 12:57 Freq: Status: Active Protocol: Document 11/04/19 12:58 CGR (Rec: 11/04/19 13:10 CGR [id number]) OT- Subjective Occupational Therapy Visit Type Type Initial Evaluation Visit Start Time 10:10 Visit Stop Time 10:34 Total Visit Minutes 24 Notes Pt's daughter present throughout Occupational Therapy Visit Comments Patient Comments I am feeling much better OT Pain Assessment Pain When Pain Assessed At Rest Pain Present Pain Present Denied Pain M4 OT- IP ADL's Start: 11/04/19 12:57 Freq: Status: Active Protocol: Document 11/04/19 12:58 CGR (Rec: 11/04/19 13:10 CGR [id number]) OT [id number] Comments OT Self-Feeding Comments Not meal time OT ADL-Grooming General Evaluation Grooming Ability Independent Areas Needing Assistance Face Washing Comments OT Grooming Comments standing at sink OT ADL-Oral Care General Eval Oral Care Ability Independent Areas of Assistance Brushing Teeth Comments Oral Care Comments standing at sink OT ADL-Dressing General Eval Upper Body Dressing Ability Independent Lower Body Dressing Ability Independent Comments OT Dressing Comments seated EOB OT ADL-Toileting General Evaluation Toileting Ability Independent OT ADL-Bathing Comments OT Bathing Comments Not performed in this session. M5 OT- IP IADL's Start: 11/04/19 12:57 Freq: Status: Active Protocol: Document 11/04/19 12:58 CGR (Rec: 11/04/19 13:10 CGR [id number]) OT-Instrumental Activities of Daily Living Deficits IADL Deficits Identified No Deficits Home Safety Awareness Awareness of Need for Assistance at Home Good Awareness Ability to Problem Solve Emergency Able to Problem Solve Situations Medication Management Medication Management No Deficits Identified Money Management Money Management No Deficits Identified Meal Preparation Meal Preparation No Deficits Identified Cork Tile Floor Layer Cork Tile Floor Layer No Deficits Identified Driving Driving Comments Pt states she rarely if ever drives anymore and daughter states that she is planning for her mother to not need to drive from this point on. M6 OT- IP Functional Cognition Start: 11/04/19 12:57 Freq: Status: Active Protocol: Document 11/04/19 12:58 CGR (Rec: 11/04/19 13:10 CGR [id number]) Cognitive Factors Limiting Selfcare Function Cognitive Ability Level of Alertness Alert Patient Orientation Name,Age,Birthday,Month,Date, Year,Day of Week,Place, Situation Attention Span Ability Capable of Focused Attention, Capable of Sustained Attention Ability to Follow Commands Able to Follow One Step Commands with Increased Time, Able to Follow One Step Commands with Repetition OT- Vision and Hearing OT- Hearing Assessment OT- Hearing Assessment WFL OT- Vision Assessment Visual Acuity Glasses For Reading Visual Attentiveness WFL Occular Pursuits WFL Visual Convergence WFL Visual [place] WFL M7 OT- IP Mobility and Balance Start: 11/04/19 12:57 Freq: Status: Active Protocol: Document 11/04/19 12:58 CGR (Rec: 11/04/19 13:10 CGR [id number]) OT- Bed Mobility Assessment Rolling Type of Rolling Roll to Right Level of Assistance Independent Supine to Sit Supine to Sit Assist Independent Scooting Scooting to Edge of Bed Independent OT-Transfer Assessment Sit to and From Stand Sit to and from Stand Independent Transfers Transfer Ability Independent Technique Transfer Destination Bed,Chair,Toilet Transfer Technique Stand Step Pivot Devices Transfer Assistive Devices Gait Belt OT- Gait Assessment Gait Gait Assistance Required: Independent Assistive Devices Assistive Device Gait Belt OT- Balance Assessment Sitting Balance and Reactions Static Sitting Balance Ability Normal Dynamic Sitting Balance Ability Good M8 OT- IP Objective Assessments Start: 11/04/19 12:57 Freq: Status: Active Protocol: Document 11/04/19 12:58 CGR (Rec: 11/04/19 13:10 CGR [id number]) OT Gross Range of Motion Upper Extremity Range of Motion Assessment Within Functional Limits OT Strength Upper Extremity Strength Assessment Bilaterally Impaired Comments Strength Comments Grossly pt presents as a 3+ to 4-/5 OT- Coordination Assessment Upper Extremity Finger to Nose Test Within Functional Limits Finger Tapping Test Within Functional Limits OT-Muscle Tone Assessment Muscle Tone WNL Yes OT Sensation Assessment Comments Summary Comments Pt states good and typical sensation to BUE Edema Edema Absent M9 OT- IP Assessment and Plan Start: 11/04/19 12:57 Freq: Status: Active Protocol: Document 11/04/19 12:58 CGR (Rec: 11/04/19 13:10 CGR [id number]) OT Summary Assessment and Plan Potential Rehabilitation Potential Excellent Analytic Complexity at Evaluation Low Summary Progress Towards Goals Goals Met Assessment Summary Pt presents as a low complexity evaluation. Pt admitted with COPD exacerbation. Pt is moving well with good ROM and able to perform ADLs at this time. Discussed COPD with Pt and daughter providing information . Daughter indicates interest in learning more about COPD. Frequency of Treatment Frequency Of Treatment Discharge Discharge Recommendations OT Discharge Recommendations Home with Assistance
--- NOTE | 2019-11-04 11:14 | CM.DPC ---
DCP: continued: case discussed in Team Rounds and with OT FABIAN as well as RN Rosalba, caring for pt today. All confirm that pt is doing well and that she is going to d/c home today as per Dr. Padilla's order. A check in now shows that family were here and pt has left the hospital.
--- NOTE | 2019-11-04 13:25 | PC.NURSE ---
Discharge: Pt feels ready to d/c home. Seen by md and given instructions. OT saw prior to leaving and they gave her their instructions. Dtr here later in the am and she was present during this writers instructions. Reviewed d/c packet. Rx e sent to pharmacy. Questions answered. D/c home via auto w/dtr.
== END 2019-11-04 11:00 | disposition home or self-care (01) | DRG 812 ==
LOC: AC 16:57
PROVIDERS: Family Medicine; Admitting Provider Family Medicine; PCP Family Medicine; Visit Provider Family Medicine
DX: D53.9 Nutritional anemia, unspecified (principal); J44.1 Chronic obstructive pulmonary disease with (acute) exacerbation; D70.9 Neutropenia, unspecified; E78.5 Hyperlipidemia, unspecified; R09.02 Hypoxemia; K21.9 Gastro-esophageal reflux disease without esophagitis; F32.9 Major depressive disorder, single episode, unspecified; Z87.891 Personal history of nicotine dependence; Z85.72 Personal history of non-Hodgkin lymphomas; G44.209 Tension-type headache, unspecified, not intractable; Z23 Encounter for immunization
CPT/HCPCS: 36415; 36430; 71045; 80048; 80053; 81001; 83605; 83880; 84145; 85025; 85610; 85651; 86140; 86850; 86900; 86901; 87040; 87086; 87633; 90471; 90656; 94640; 97116; 97161; 97165; 97535; G0378; P9016; C9113; J2930; J7050; J7613; Q2038

== ENCOUNTER → 2019-12-05 11:29 | Outpatient (CLI) | payer MEDICARE, OTHER, SELFPAY ==
[2019-12-05 12:14] LABS: Add Manual Diff / Slide Review NO; Basophils Absolute Auto 0 /uL (0-100); Basophils Percent Auto 0.3 % (0-2); Eosinophils Absolute Auto 100 /uL (0-450); Eosinophils Percent Auto 0.8 % (2-4); Hematocrit 29.4 % (36-46); Hemoglobin 9.2 g/dL (12.0-16.0); Lymphocytes Absolute Auto 1000 /uL (1100-4500); Lymphocytes Percent Auto 15.3 % (25-40); Mean Corpuscular HGB Conc 31.4 % (30-36); Mean Corpuscular Hemoglobin 22.6 PG (26-34); Mean Corpuscular Volume 72.1 fL (80-100); Monocytes Absolute Auto 600 /uL (0-900); Monocytes Percent Auto 8.3 % (3-14); Neutrophils Absolute Auto 5000 /uL (1500-7000); Neutrophils Percent Auto 75.3 % (50-75); Platelet Count 327 X10^3/uL (150-400); Red Blood Cell Count 4.08 X10^6/uL (4.0-5.2); Red Cell Distribution Width 24.7 % (11.6-14.8); White Blood Cell Count 6.7 X10^3/uL (4.5-11.0)
[2019-12-05 12:23] LABS: Alanine Aminotransferase 16 IU/L (<35); Albumin 4.3 g/dL (3.5-5.0); Albumin Globulin Ratio 1.4 (1.0-2.8); Alkaline Phosphatase 105 U/L (38-126); Aspartate Aminotransferase 27 IU/L (14-36); Bilirubin Total 0.3 mg/dL (0.2-1.3); Blood Urea Nitrogen 16 mg/dL (7-17); Calcium 9.4 mg/dL (8.4-10.2); Carbon Dioxide 25 mmol/L (22-32); Chloride 103 mmol/L (98-107); Estimated Glomerular Filt Rate > 60.0 mL/min (>60); Globulin 3.1 g/dL (1.7-4.1); Glucose 117 mg/dL (80-110); HEMOLYSIS < 15 (0-50); Lactate Dehydrogenase 427 U/L (313-618); Potassium 4.1 mmol/L (3.4-5.1); Sodium 138 mmol/L (137-145); Total Protein 7.4 g/dL (6.3-8.2)
[2019-12-05 12:40] LABS: Anisocytosis 2+
[2019-12-05 12:41] LABS: HEMOLYSIS < 15 (0-50); Hypochromasia 2+; Iron 32 ug/dL (37-170); Microcytosis 1+
[2019-12-05 12:42] LABS: Poikilocytosis 1+
[2019-12-05 12:52] LABS: Percent Iron Saturation 9 % (15-50); Total Iron Binding Capacity 345 ug/dL (265-497); Transferrin 294 mg/dL (206-381)
[2019-12-05 12:53] LABS: Carcinoembryonic Antigen 5.3 ng/mL (0.1-3.0)
[2019-12-05 12:57] LABS: Ferritin 19.9 ng/mL (11.1-264)
[2019-12-07 15:01] LABS: Haptoglobin 203 mg/dL (43-212)
[2019-12-07 21:18] LABS: Albumin 3.8 g/dL (3.8-4.8); Alpha 1 Globulin 0.4 g/dL (0.2-0.3); Alpha 2 Globulin 0.9 g/dL (0.5-0.9); Beta 1 Globulin 0.5 g/dL (0.4-0.6); Gamma Globulin 0.8 g/dL (0.8-1.7); Protein, Total 6.7 g/dL (6.1-8.1)
== END ==
PROVIDERS: PCP Family Medicine; Referring Provider Internal Medicine Hematology & Oncology; Visit Provider Internal Medicine Hematology & Oncology
DX: D50.9 Iron deficiency anemia, unspecified (principal)
CPT/HCPCS: 36415; 80053; 82378; 82728; 83010; 83540; 83550; 83615; 84155; 84165; 85025

== ENCOUNTER → 2019-12-13 13:59 | Outpatient (CLI) | payer MEDICARE, OTHER, SELFPAY ==
[2019-12-13 14:12] LABS: Add Manual Diff / Slide Review NO; Basophils Absolute Auto 0 /uL (0-100); Basophils Percent Auto 0.5 % (0-2); Eosinophils Absolute Auto 0 /uL (0-450); Eosinophils Percent Auto 0.3 % (2-4); Hematocrit 27.2 % (36-46); Hemoglobin 8.7 g/dL (12.0-16.0); Lymphocytes Absolute Auto 1200 /uL (1100-4500); Lymphocytes Percent Auto 17.8 % (25-40); Mean Corpuscular Hemoglobin 22.6 PG (26-34); Mean Corpuscular Volume 70.7 fL (80-100); Monocytes Absolute Auto 400 /uL (0-900); Monocytes Percent Auto 6.2 % (3-14); Neutrophils Absolute Auto 5100 /uL (1500-7000); Neutrophils Percent Auto 75.2 % (50-75); Platelet Count 289 X10^3/uL (150-400); Red Blood Cell Count 3.84 X10^6/uL (4.0-5.2); Red Cell Distribution Width 24.1 % (11.6-14.8); White Blood Cell Count 6.8 X10^3/uL (4.5-11.0)
[2019-12-13 14:37] LABS: Anisocytosis 2+
== END ==
PROVIDERS: PCP Family Medicine; Referring Provider Internal Medicine Hematology & Oncology; Visit Provider Internal Medicine Hematology & Oncology
DX: D62 Acute posthemorrhagic anemia (principal)
CPT/HCPCS: 36415; 85025

== ENCOUNTER 2020-01-02 10:21 | Day surgery (SDC) | payer MEDICARE, OTHER, SELFPAY ==
[2020-01-02] VITALS (19 sets, daily range): BP systolic 112–180; BP diastolic 52–90; PULSE 78–95; RESP 17–27; TEMP 36.2–37.2; O2SAT 97–100; BMI 18.0
--- NOTE | 2020-01-02 | DI.CT.S_ITS ---
PROCEDURE: CT SOFT TISSUE NECK W CON INDICATIONS: short of breath post egd TECHNIQUE: After the administration of intravenous contrast, 3.0 mm axial sections acquired from the sella to the aortic arch. Additional oblique axial 3.0 mm sections acquired through the pharynx. 3 mm thick coronal and sagittal reformats were generated. For radiation dose reduction, the following was used: automated exposure control. COMPARISON: [facility], CT, THORAX WITHOUT CONTRAST, 07/09/2017, 9:57. [facility], CT, CT CHEST ABDOMEN W CON, 01/02/2020, 12:45. FINDINGS: Image quality: Excellent. Lymph nodes: No enlarged lymph nodes seen throughout the neck. Vessels: Visualized vasculature appears patent. The common and internal carotid arteries follow a medial course projecting into the retropharyngeal space Neck spaces: The oropharynx, nasopharynx, and pharynx demonstrate no mucosal lesions. The vocal cords, false vocal cords, pyriform sinuses, epiglottis, vallecula, and tongue base all appear normal. Large amount of extensive subcutaneous air seen throughout the neck and upper chest. Glands: The parotid and submandibular glands appear normal. Thyroid gland is within normal limits. Miscellaneous: Visualized brain and orbits appear normal. Masslike consolidation noted in the right upper lobe in the region of surgical staple line which could represent recurrent neoplasm or pneumonia. Small right sided pneumothorax is noted. Extensive pneumomediastinum is noted in the visualized upper chest. Biapical pleural-parenchymal scarring is stable compared to 07/09/17. Bones: No suspicious bony lesions. Visualized sinuses and mastoids appear unremarkable. IMPRESSION: 1. Extensive subcutaneous soft tissue air involving the neck and the upper chest. 2. Small right-sided pneumothorax. 3. Extensive pneumomediastinum. 4. No lymphadenopathy based on size criteria. 5. No mucosal based masses. 6. No definite abscess. 7. Masslike consolidation in the right upper lobe in the region of the surgical staple line which could represent recurrent carcinoma or pneumonia. Dictated by: Nancy Gleason MD, PhD on 01/02/2020 at 12:04 Approved by: Nancy Gleason MD, PhD on 01/02/2020 at 12:21
--- NOTE | 2020-01-02 | DI.RAD.S_ITS ---
PROCEDURE: FL BARIUM SWALLOW INDICATIONS: esophageal perforation. Perform with gastrografin COMPARISON: None. FINDINGS: Single contrast Gastrografin study was performed . There is contrast opacification of the esophagus, hiatal hernia and stomach. No extraluminal contrast is visualized. Gastric mucosa within a hiatal hernia and stomach is not evaluated due to nondistended state. IMPRESSION: No extraluminal contrast fluoroscopically visualized. Dictated by: Hitesh Juarez M.D. on 01/02/2020 at 17:29 Approved by: Hitesh Juarez M.D. on 01/02/2020 at 17:39
--- NOTE | 2020-01-02 | DI.CT.S_ITS ---
PROCEDURE: CT CHEST ABDOMEN W CON INDICATIONS: sob after EGD TECHNIQUE: After the administration of intravenous contrast, 5 mm thick sections acquired from the lung apices to the iliac crests. 5 mm coronal and sagittal reformats were performed, with additional 7 mm coronal MIP reformats through the lungs. For radiation dose reduction, the following was used: automated exposure control, adjustment of mA and/or kV according to patient size. COMPARISON: [facility], CT, CT CHEST WO CON, 03/12/2018, 12:17. [facility], CT, CT SOFT TISSUE NECK W CON, 01/02/2020, 12:45. FINDINGS: Image quality: Excellent. CHEST: Lungs and pleura: Significant emphysematous changes are present. There is a moderate right pneumothorax. Mild to moderate left pneumothorax is also present. Air is noted tracking anterior to the heart extending into both the right and left lungs. left. There is a consolidative opacity within the right upper lobe. Mediastinum: Heart size is normal. No pericardial effusion. Pneumomediastinum is present with significant air anterior to the heart border. Air is also noted tracking around the aorta including the arch and ascending and descending portions. There is a hiatal hernia with significant circumferential air near the gastroesophageal junction. Thoracic aorta and central pulmonary arteries are normal in size. Chest wall: No axillary or supraclavicular adenopathy by size criteria. Thyroid gland is unremarkable. Subcutaneous air is noted within the right chest wall. Significant subcutaneous air is also noted within the anterior chest wall soft tissues, with significant air extending into the visualized portions of the neck. Air is also noted within the soft tissues of the partially visualized lower neck. ABDOMEN: Solid organs: Liver is normal in size and enhancement. Gallbladder is unremarkable. Biliary system is non dilated. Pancreas enhances normally. Spleen is normal in size and enhancement. No adrenal nodules. Kidneys demonstrate normal size and enhancement, without hydronephrosis. Left renal cyst is present. Peritoneum and bowel: Bowel loops demonstrate normal wall thickness and caliber. No free fluid or air. Air is noted surrounding the hiatal hernia and extending inferiorly around the border of the superior anterior stomach wall. Mild free air is noted within the upper abdomen. Nodes and vessels: No retroperitoneal or mesenteric adenopathy by size criteria. Aorta and inferior vena cava are normal in size. Bones: No suspicious bony lesions. No vertebral body compression fractures. Miscellaneous: No ventral hernias. IMPRESSION: 1. Suspected perforation at the level of the hiatal hernia/proximal stomach with significant air extending superiorly with visualization of prominent pneumomediastinum, moderate right and mild to moderate left pneumothoraces as well as extensive air within the chest wall soft tissues extending into the soft tissues of the neck. Mild free air is also noted within the upper abdomen. 2. Mild left to right midline shift secondary to pneumothoraces/pneumomediastinum. 3. Consolidative opacity within the right upper lobe suspected to represent atelectasis/lung collapse. The above findings were discussed with Dr. Jese Sosa on 01/02/20 at 1:15 PM. Dictated by: Carlita Fernandez M.D. on 01/02/2020 at 13:15 Approved by: Carlita Fernandez M.D. on 01/02/2020 at 13:31
--- NOTE | 2020-01-02 | PATH_ITS ---
[facility] Accession Number: [id number] . 01 Material submitted: . gastrointestinal site - GASTRIC BIOPSY . 01 Clinical history: . EGD/COLONOSCOPY . 02 Diagnosis: Stomach, Biopsy: Antral mucosa with mild chronic gastritis. Negative for Helicobacter by immunohistochemistry. Negative for intestinal metaplasia. Negative for dysplasia and malignancy. V 01/04/2020 1221 Local . 02 Electronically signed: . Anika Miguel MD, Pathologist NPI- [id number] . 01 Gross description: . GASTRIC BIOPSY: Received in formalin are 2 fragment(s) of cheung, soft tissue measuring 0.1 x 0.1 x 0.1 cm to 0.3 x 0.2 x 0.2 cm submitted entirely in 1 cassette(s) /[facility] 01/02/2020 2104 Local . 02 Microscopic: . An immunohistochemical stain was performed to evaluate for Helicobacter organisms and is negative. The control stain showed appropriate reactivity. . * This test was developed and its performance characteristics determined by [facility]. It has not been cleared or approved by the U.S. Food and Drug Administration. The FDA has determined that such clearance or approval is not necessary. This test is used for clinical purposes. It should not be regarded as investigational or for research. . 02 Pathologist provided ICD-10: D50.9 . 02 CPT . 416496, [id number] Performed at: 01 [facility] [address], [place], [place] [id number] MD Earl Raines MD Phone: [phone] Performed at: [address] [facility] [address] [place], [place] [id number] MD Anika Miguel MD Phone: [phone]
--- NOTE | 2020-01-02 | DI.RAD.S_ITS ---
PROCEDURE: XR CHEST 1V INDICATIONS: chest tube insertion TECHNIQUE: One view of the chest was acquired. COMPARISON: [facility], CT, CT CHEST ABDOMEN W CON, 01/02/2020, 12:45. [facility], CR, XR CHEST 1V, 01/02/2020, 12:36. FINDINGS: Surgical changes and devices: There has been interval placement of a right-sided chest tube overlying the medial mid right lung field. Lungs and pleura: There is persistent appearance of right pneumothorax, relatively stable. Left pneumothorax versus anterior mediastinal air is again identified, better appreciated on CT exam of 01/02/20. There is persistent appearance of left to right midline shift. Mediastinum: Mediastinal contours appear normal. Heart size is normal. Prominent pneumomediastinum remains present. Air is noted below the hemidiaphragms. Bones and chest wall: No suspicious bony lesions. Overlying soft tissues appear unremarkable. Extensive subcutaneous emphysema is present. IMPRESSION: Interval placement of right-sided chest tube as above. Persistent appearance of right pneumothorax as well as left pneumothorax and/or anterior mediastinal air. Pneumomediastinum is again noted. Dictated by: Carlita Fernandez M.D. on 01/02/2020 at 14:30 Approved by: Carlita Fernandez M.D. on 01/02/2020 at 14:32
[2020-01-02] MEDS: SODIUM CHLORIDE 0.9% 1,000 ML 200 ML IV (10:56)
--- NOTE | 2020-01-02 11:24 | PM.HP.1 ---
History of Present Illness History of Present Illness Date Patient Seen: 01/02/20 Time Patient Seen: 11:24 Chief complaint: [id number] EGD/COLONOSCOPY Narrative: Lida is a 79-year-old woman with persistent microcytic anemia. She underwent a colonoscopy and EGD July 11 2019 which was normal. Previously she had had an upper endoscopy February 2019 that demonstrated a Den's ulcer. She continues to have microcytic anemia with out blood per rectum, guaiac negative. She has been evaluated by Oncology for her anemia have recommended repeat of her esophagoduodenoscopy and colonoscopy. She reports feeling well today no nausea vomiting blood per mouth or rectum. Patient History Medical History COPD (chronic obstructive pulmonary disease) (Acute) GERD (gastroesophageal reflux disease) (Acute) Lung cancer (Acute) Lung nodule (Acute) Lymphoma (Acute) Surgical History S/P lobectomy of lung (Acute) Family & Social History Family History Sister Cancer Brother Cancer Social History: household members family,children Tobacco & Substance use: Tobacco type cigarettes Smoking Status Former smoker alcohol intake current alcohol intake frequency 0-2 drinks per day Substance Use Type does not use Meds Home Medications and Allergies Home Medications Medication Instructions Recorded Confirmed Type acetaminophen 650 mg PO Q4H PRN #0 10/25/12 01/02/20 History atorvastatin [Lipitor] 10 mg PO HS #0 10/25/12 01/02/20 History fluticasone propion-salmeterol 1 puff INH BIDRT #0 10/25/12 01/02/20 History [Advair Diskus] sertraline [Zoloft] 150 mg PO QDAY #0 10/25/12 01/02/20 History albuterol sulfate 1 neb INHALATION Q4H PRN 03/17/19 01/02/20 History albuterol sulfate 2 puff INHALATION Q4H PRN 03/17/19 01/02/20 History esomeprazole magnesium 40 mg PO DAILY #30 cap 03/19/19 01/02/20 Rx sodium,potassium,mag sulfates 17.5 177 ml PO DAILY #354 ml 12/16/19 Rx gram-3.13 gram-1.6 gram oral soln ferrous gluconate 324 mg PO BID 01/02/20 01/02/20 History tiotropium bromide [Spiriva with 1 cap INHALATION DAILY 01/02/20 01/02/20 History HandiHaler] trazodone 50 mg PO BEDTIME 01/02/20 01/02/20 History Allergies Allergy/AdvReac Type Severity Reaction Status Date / Time No Known Drug Allergies Allergy Verified 01/02/20 10:34 Review of Systems Review of Systems Narrative: A 10 point review of systems is negative except as noted in the HPI Exam Vital Signs (past 8 hours): - 01/02/20 10:50 Temperature 98.1 F Pulse Rate 95 H Respiratory Rate 18 Blood Pressure 112/70 Pulse Oximetry 97 Oxygen Delivery Method Room Air Narrative Exam Narrative: General-no acute distress, well nourished HEENT-moist mucous membranes, no scleral icterus Neck-supple, no lymphadenopathy Chest- non labored respirations, clear to auscultation bilaterally Cardiac-regular rate no peripheral edema Abdomen-soft, nontender, non distended Extremities-warm, well perfused Neurological-alert and oriented, no focal deficits Assessment & Plan Assessment and plan (1) Microcytic anemia: Current visit: No Status: Acute Assessment & Plan narrative: 79-year-old woman with persistent microcytic anemia, esophagoduodenoscopy and colonoscopy are indicated. We discussed the technical nature of the procedures including the risk of bleeding perforation missed diagnosis aspiration heart attack stroke. Her questions have been answered she is in agreement with this plan.
[2020-01-02] MEDS: ALBUTEROL HFA 60 PUFF/8 GM INH INH (12:03)
--- NOTE | 2020-01-02 12:52 | DI.RAD.S_ITS ---
PROCEDURE: XR CHEST 1V INDICATIONS: SOB AFTER EGD TECHNIQUE: One view of the chest was acquired. The current chest evaluation has timed stamped 12:36, and a subsequent chest plain film from from same day, at 14:15, was reviewed. Additional CT scanning from earlier same day was reviewed. COMPARISON: [facility], CT, CT CHEST ABDOMEN W CON, 01/02/2020, 12:45. [facility], CT, CT SOFT TISSUE NECK W CON, 01/02/2020, 12:45. [facility], CR, XR CHEST 1V, 01/02/2020, 14:15. [facility], CR, XR CHEST 1V, 11/01/2019, 17:12. [facility], CR, CHEST 2 VIEW, 05/15/2017, 12:37. FINDINGS: Surgical changes and devices: Surgical clips midline chest and right mediastinal border superiorly. Lungs and pleura: Lungs are difficult to accurately assess due to chronic interstitial prominence and also superimposition of both the small to moderate-sized right-sided pneumothorax and pneumomediastinum and subcutaneous emphysema. No pleural effusions or pneumothorax. Mediastinum: Mediastinal contours appear normal. Heart size is normal. Bones and chest wall: No suspicious bony lesions. Overlying soft tissues appear unremarkable. IMPRESSION: Pneumomediastinum, right-sided small to moderate pneumothorax, subcutaneous emphysema over the supraclavicular region bilaterally. This examination is being evaluated after prior plain film and CT scanning was obtained and the abnormalities noted above were better documented by CT scanning. No new abnormality is found when compared to the same day CT scanning. Dictated by: Javier Marie M.D. on 01/02/2020 at 14:47 Approved by: Javier Marie M.D. on 01/02/2020 at 14:55
[2020-01-02] MEDS: LIDOCAINE 4% SOLN 50 ML 20 ML TOP (13:09)
[2020-01-02] MEDS: MIDAZOLAM 5 MG/5 ML VIAL IV (13:10)
[2020-01-02] MEDS: fentaNYL 250 MCG/5 ML INJ IV (13:10)
[2020-01-02] MEDS: FLUCONAZOLE 400 MG/200 ML PIGGYBACK 100 MG IV (13:34)
--- NOTE | 2020-01-02 13:36 | PM.OP.ENDO ---
Operative Date/Time/Diagnoses Date of procedure: 01/02/20 Time of procedure: 14:14 Pre-op diagnosis: anemia hx of Den's ulcer Post-op diagnosis: other (esophageal perforation, bleeding den's ulcer) Procedure & Clinicians Study performed: Esophagoduodenoscopy Same procedure as scheduled: Yes Indications: Anemia Hx of Den's ulcer Surgeon: Jese Sosa Procedure Notes SCOAP/Timeout: performed Procedure in detail: Patient was brought to the procedure room and placed in the left lateral decubitus position. Timeout was performed. Procedural sedation was administered with versed and fentanyl. The endoscope was carefully placed into the mouth and advanced down the esophagus. The stomach was insufflated and the plyorus was intubated the duodenum was normal to the second portion. There was mild gastritis and gastric biopsy with forceps was performed. Hemostasis was observed. The scope was retroflexed within the stomach and a hiatal hernia was observed. The hiatal hernia was entered and there was an actively bleeding Den's ulcer. It was irrigated there was no visible vessel but it continued to actively bleed. Using electrocautery the ulcer was cauterized. At this time the patient had complaint of shortness of breath and her oxygen saturation decreased to 80's despite nasal canula. The procedure was aborted. At the conclusion of the case crepitus of the neck was observed. A sat CXR and upright CXR were obtained followed by urgent CT Neck Chest Abdomen. Review of the imaging demonstrates pneumomediastium, right pneumothorax from suspected esophageal/gastric perforation. She recieved Zosyn and fluconazole in recovery. A right chest tube 28F was placed for pneumothorax and pending ground transportation. A follow up CXR is pending. Specimen(s): other (gastric biopsy) Complications: other (esophageal perforation) Post-procedure Recommendations: Other recommendation (transfer to tertiary medical center for management of esophageal perforation)
[2020-01-02] MEDS: PIPERACILLIN-TAZO 3.375 GM/50 ML FROZ.PIGGY IV ×2 (13:45→21:01)
--- NOTE | 2020-01-02 14:03 | SUR.PHASEI ---
[id number] Late entry: Physician explaining to patient the need for insertion of a right lateral chest tube insertion due to subcutaneous air. Patient verbalizes understanding. VSS. Patient still has subcutaneous emphysema noted to upper chest, posterior and anterior neck. Tolerating oxygen at 100% at 8 liters via simple face mask.
--- NOTE | 2020-01-02 14:15 | SUR.PHASEI ---
Dr Sosa placed 28 danish chest tube to right lateral chest wall using sterile technique on one attempt. Tolerated well. Placed chest tube to wall suction. [place] float noted in float valve window. No air leak noted to chamber. CXR ordered.
--- NOTE | 2020-01-02 14:39 | SUR.PHASEI ---
Repositioned patient in bed for comfort and warm blanket given. Patient states she feels her breathiing is a little better than earlier. Titrated oxygen from 8 liters via simple face mask to 4 liters simple face mask. O2 sat 100% on 4 liters. Bp 124/71, NSR 79 and MAP 91.
--- NOTE | 2020-01-02 14:45 | SUR.PHASEI ---
Daughter at bedside and understands need for transfer to higher level of care.
--- NOTE | 2020-01-02 15:08 | SUR.PHASEI ---
Patient resting quietly in stretcher with daughter at bedside. Still awaiting accepting physician notification from [facility].
--- NOTE | 2020-01-02 15:34 | SUR.PHASEI ---
Notified patient and family that after further evaluation and on recommendation from surgeon at [facility], patient will remain at [facility] and be admitted to ICU. V/U.
--- NOTE | 2020-01-02 15:43 | SUR.PHASEI ---
Assumed care. VS stable, then hr increased to 151 for a few seconds and returned to 80s without intervention. Patient denied change in chest pain or dyspnea. Also, denied nausea. Hr currently 79. O2 sat 100% 4 LNC.
--- NOTE | 2020-01-02 15:55 | SUR.OPER ---
EGD aborted at 1222 secondary to pt appearing in distress; grasping at chest region and stomach. Pt c/o epigastric pain. appeared to be having shortness of breath with wheezes, skin dusky in color and neck swollen bilaterally,Sa02 noted to be 79%, HR 93. O2 increased to 10/NC . Anesthesia called to room. O2 changed to face mask per . Navneet Mishra called by border inspector. from anesthesia now present to assess pt. ER physician and navneet mishra team arrived and after conferring with anesthesia, they departed. and continued to assess the patient and determined to obtain portable chest x-ray and abdominal films. After reviewed films, pt transported via stretcher with portable monitor and O2 to radiology for CT with contrast by JOJO Jarrett, Maggie,JOJO, and JOJO Grady. After completion of CT pt. transferred to PACU and transfer of care report given to [employer] CONTROL ASSISTANT.
--- NOTE | 2020-01-02 16:52 | SUR.PHASEI ---
Transferred patient to radiology for Esophagram procedure. Transferred on oxygen via 4 liters nasal cannula. Chest tube continues to exhibit no air leak, no new drainage noted. Patient denies SOB at this time. Esophagram tolerated without difficulty. Transported patient then to ICU and assisted Kirti, ICU nurse, with transfer to ICU bed.
[2020-01-02] MEDS: SODIUM CHLORIDE 0.9% 1,000 ML 100 ML IV (17:16)
[2020-01-02 18:06] LABS: Add Manual Diff / Slide Review NO; Basophils Absolute Auto 0 /uL (0-100); Basophils Percent Auto 0.4 % (0-2); Eosinophils Absolute Auto 0 /uL (0-450); Eosinophils Percent Auto 0.1 % (2-4); Hematocrit 33.1 % (36-46); Lymphocytes Absolute Auto 700 /uL (1100-4500); Lymphocytes Percent Auto 8.6 % (25-40); Mean Corpuscular HGB Conc 30.3 % (30-36); Mean Corpuscular Hemoglobin 23.4 PG (26-34); Monocytes Absolute Auto 500 /uL (0-900); Monocytes Percent Auto 6.1 % (3-14); Neutrophils Absolute Auto 6500 /uL (1500-7000); Neutrophils Percent Auto 84.8 % (50-75); Platelet Count 267 X10^3/uL (150-400); Red Cell Distribution Width 27.1 % (11.6-14.8); White Blood Cell Count 7.6 X10^3/uL (4.5-11.0)
[2020-01-02] MEDS: MORPHINE 2 MG/ML INJ IV ×2 (18:09→21:50)
[2020-01-02 18:12] LABS: BUN Creatinine Ratio 22.1 (6-22); Blood Urea Nitrogen 15 mg/dL (7-17); Calcium 9.2 mg/dL (8.4-10.2); Carbon Dioxide 22 mmol/L (22-32); Chloride 112 mmol/L (98-107); Estimated Glomerular Filt Rate > 60.0 mL/min (>60); Glucose 99 mg/dL (80-110); HEMOLYSIS < 15 (0-50); Potassium 4.2 mmol/L (3.4-5.1); Sodium 144 mmol/L (137-145)
[2020-01-02 18:35] LABS: Anisocytosis 3+; Microcytosis 2+
[2020-01-02 18:36] LABS: Hypochromasia 1+; Poikilocytosis 1+
[2020-01-02] MEDS: VANCOMYCIN 1,000 MG/200 ML PIGGYBACK 200 MG IV (19:50)
--- NOTE | 2020-01-02 21:49 | DI.RAD.S_ITS ---
PROCEDURE: XR CHEST 1V INDICATIONS: NG tube placement TECHNIQUE: One view of the chest was acquired. COMPARISON: [facility], CT, CT CHEST WO CON, 03/12/2018, 12:17. [facility], CT, CT CHEST ABDOMEN W CON, 01/02/2020, 12:45. [facility], CR, XR CHEST 1V, 01/02/2020, 14:15. FINDINGS: Surgical changes and devices: Right chest tube appears similar in position. There is interval placement of a nasogastric tube with the tip coiled in the stomach contained within a large hiatal hernia.. Lungs and pleura: There is a persistent small to moderate right pneumothorax, with lateral and basilar components, which appears similar to slightly decreased from the prior study. No definite evidence of tension. A right suprahilar opacity corresponding to masslike consolidation seen on recent CT is redemonstrated. Evaluation of the lungs is limited due to overlying subcutaneous emphysema. No right pleural effusion. No left pleural effusion or definite left pneumothorax. Mediastinum: There is pneumomediastinum and pneumopericardium redemonstrated. A large hiatal hernia is again noted. Heart is normal in size. Bones and chest wall: No displaced fractures identified. Extensive subcutaneous emphysema is redemonstrated within the chest and visualized neck soft tissues. IMPRESSION: 1. Small to moderate right pneumothorax appears similar to slightly decreased in size compared to the prior study. Chest tube remains in place. 2. Pneumomediastinum and pneumopericardium redemonstrated as well as extensive subcutaneous emphysema. 3. Right suprahilar opacity corresponding to masslike consolidation on prior CT again noted. The findings are suspicious for neoplasm. Recommend followup evaluation when clinically feasible. Dictated by: Earl Montano M.D. on 01/03/2020 at 9:00 Approved by: Earl Montano M.D. on 01/03/2020 at 9:07
--- NOTE | 2020-01-02 23:31 | PC.NURSE ---
Patient was brought to ICU from PACU. Stable, able to ambulate, no complaints of SOB, pain from chest tube incision 5/10. Chest tube canister and dressing were changed. Patient had no other complaints. A/O x4. Skin intact besides chest tube. NPO. Patient received morphine 2mg Q4H twice. Order to put in NG tube for transfer to [facility]- Dr. Sosa was called to verbally confirm that we should insert an NG despite recent EGD, hernia, and perforation. NG was attempted three times and on third attempt appropriate 'whoosh' test sounds were heard. Xray ordered to confirm placement but came back that NG was located in mediastinum. NG tube was removed prior to transport. Patient transported to [facility], report given to Ade. Daughter Marcela notified of transfer.
--- NOTE | 2020-01-03 11:23 | P.DS_ITS ---
History of Present Illness History of Present Illness Chief complaint: [id number] EGD/COLONOSCOPY Narrative: Lida is a 79-year-old woman with persistent microcytic anemia. She underwent a colonoscopy and EGD July 11 2019 which was normal. Previously she had had an upper endoscopy February 2019 that demonstrated a Den's ulcer. She continues to have microcytic anemia with out blood per rectum, guaiac negative. She has been evaluated by Oncology for her anemia have recommended repeat of her esophagoduodenoscopy and colonoscopy. She reports feeling well today no nausea vomiting blood per mouth or rectum. Discharge Providers Provider Discharge Date: 01/03/20 Primary care physician: Ayaka Padilla MD Consults: 01/02/20 18:19 Consult to Dietitian, Adult Routine Comment: Reason For Exam: Low BMI Discharge provider: Jese Sosa MD Summary Hospital Course Discharge Diagnosis: anemia COPD peritonitis pneumomediastinum pneumothorax Hospital Course: Patient has a known hiatal hernia with a Den's ulcer and presented for diagnostic EGD and Colonoscopy secondary to persistent anemia. Please refer to the H&P for further detail. She underwent the EGD demonstrated a actively bleeding Den's ulcer within the hiatal hernia which was cauterized. The patient become acutely dyspneic procedure was aborted and she developed sudden subcutaneous emphysema. Imaging including CT C/A demonstrated pneumomediastinum R>L pneumothorax and intra peritoneal free air. She recieved Zosyn Vancomycin and fluconazole for presumed interstinal perforation. A right chest tube was placed for decompression of the right chest. During this she remained hemodynamically stable laboratory stuides unremarkable. A esophagram demonstrates no evidence of leak from esophagus or stomach. She was admitted to the ICU for observation broad spectrum antibiotic therapy. Consultation with [facility] in [place] ultimately led to transfer to thoracic surgery at this institution. Since she remained stable without fever leukocystosis and the esophagram was negative for leak they recommended not to proceed with med iastanial drainage or esophgeal stenting. There intention is to definitely fix the persistent gastric ulcer via a hiatal hernia repair. Status at Discharge Cognitive/behavioral status at discharge: oriented Time Spent with Patient Time spent: Greater than 30 minutes Exam Vital Signs (past 8 hours): Oxygen Delivery Method Nasal Cannula Oxygen Flow Rate 3 Narrative Exam Narrative: General -[place] thin female alert oriented and in no acute distress Chest-Diminishing subcutaneous emphysema. R chest tube no air leak to-20 mm H20. Cardiac-Regular rate and rhythm Abdomen-Tender epigastic with localized peritonitis Extremities warm and well perfused. Objective Labs Result Diagrams: 01/02/20 17:38 01/02/20 17:38 Labs: Laboratory Results - last 24 hr 01/02/20 01/02/20 17:38 17:38 WBC 7.6 RBC 4.30 Hgb 10.0 L Hct 33.1 L MCV 77.0 L MCH 23.4 L MCHC 30.3 RDW 27.1 H Plt Count 267 Neut % (Auto) 84.8 H Lymph % (Auto) 8.6 L [place] % (Auto) 6.1 Eos % (Auto) 0.1 L Baso % (Auto) 0.4 Neut # (Auto) 6500 Lymph # (Auto) 700 L [place] # (Auto) 500 Eos # (Auto) 0 Baso # (Auto) 0 RBC Morphology See below Hypochromasia 1+ H Poikilocytosis 1+ H Anisocytosis 3+ H Microcytosis 2+ H Sodium 144 Potassium 4.2 Chloride 112 H Carbon Dioxide 22 BUN 15 Creatinine 0.68 Estimated GFR > 60.0 BUN/Creatinine Ratio 22.1 H Glucose 99 Calcium 9.2 Discharge Plan Discharge Plan Patient Disposition: Admitted As Inpatient Other facility: [facility] Under care of provider: Dr. Coronel Transportation: Ambulance Discharge Med Rec/Prescriptions Prescriptions: Continued atorvastatin [Lipitor] 10 MG tablet 10 mg PO HS Qty: 0 RF: 0 sertraline [Zoloft] 25 MG tablet 150 mg PO QDAY Qty: 0 RF: 0 acetaminophen 650 mg Tablet Extended Release 650 mg PO Q4H PRN (Reason: pain) Qty: 0 RF: 0 fluticasone propion-salmeterol [Advair Diskus] 100 MCG/50 MCG blister with device 1 puff INH BIDRT Qty: 0 RF: 0 Suprep Bowel Prep Kit 17.5-3.13-1.6 gram recon soln 177 ml PO DAILY Qty: 354 RF: 0 albuterol sulfate 2.5 mg /3 mL (0.083 %) solution for nebulization 1 neb Inhalation Q4H PRN (Reason: shortness of breath) RF: 0 albuterol sulfate 90 mcg/actuation HFA aerosol inhaler 2 puff Inhalation Q4H PRN (Reason: Shortness Of Breath) RF: 0 esomeprazole magnesium 40 mg capsule,delayed release(DR/EC) 40 mg PO DAILY Qty: 30 RF: 0 trazodone 50 mg tablet 50 mg PO BEDTIME RF: 0 Spiriva with HandiHaler 18 mcg Capsule, W/Inhalation Device 1 cap INHALATION DAILY RF: 0 ferrous gluconate 324 mg (37.5 mg iron) Tablet 324 mg PO BID RF: 0 Follow up/Referrals: Ayaka Padilla MD [Primary Care Provider] - Jese Sosa MD [Physician] - Discharge Orders: Discharge (Order); Ordered 01/02/20 Ordered By: Jese Sosa Skin/Wound/Dressing Care Report to your healthcare provider any signs of infection, such as:: increased pain Visit Report/Discharge Packet Visit Report Forms: Stroke Signs & Symptoms Discharge Data Primary Care Provider: Ayaka Padilla Attending Provider: Jese Sosa Discharges patient from system. Discharge Date/Time: 01/02/20 23:43 Quality VTE Deep Vein Thrombosis/Pulmonary Embolism Present on Admission: No
== END 2020-01-02 23:43 | disposition admitted as inpatient to this hospital (09) ==
LOC: ENDO 17:36 → ICU 17:55
PROVIDERS: PCP Family Medicine; Referring Provider Internal Medicine Hematology & Oncology; Visit Provider Surgery
PROC: 0DJ08ZZ Inspection of Upper Intestinal Tract, Via Natural or Artificial Opening Endoscopic (ICD-10-PCS; CPT 43235; principal; 2020-01-02 11:30)
PROC: 0DJD8ZZ Inspection of Lower Intestinal Tract, Via Natural or Artificial Opening Endoscopic (ICD-10-PCS; CPT 45378; 2020-01-02 11:30)
DX: K25.6 Chronic or unspecified gastric ulcer with both hemorrhage and perforation (principal); D50.9 Iron deficiency anemia, unspecified; K29.50 Unspecified chronic gastritis without bleeding; K44.9 Diaphragmatic hernia without obstruction or gangrene; J93.83 Other pneumothorax; J44.9 Chronic obstructive pulmonary disease, unspecified; K65.9 Peritonitis, unspecified; T79.7XXA Traumatic subcutaneous emphysema, initial encounter
CPT/HCPCS: 43239; 32551; 36415; 70491; 71045; 71260; 74160; 74220; 80048; 85025; J1450; J2250; J2270; J2543; J3010; Q9967

== ENCOUNTER 2020-06-16 19:10 | Observation (INO) | payer MEDICARE, OTHER, SELFPAY ==
[2020-01-12 11:28] VITALS: BMI 18.0
--- NOTE | 2020-06-16 19:23 | DI.CT.S_ITS ---
PROCEDURE: CT HEAD/BRAIN WO CON INDICATIONS: Trauma TECHNIQUE: Noncontrast 4.5 mm thick angled axial sections acquired from the foramen magnum to the vertex, with coronal and sagittal reformats. For radiation dose reduction, the following was used: automated exposure control, adjustment of mA and/or kV according to patient size. COMPARISON: None. FINDINGS: Image quality: Excellent. CSF spaces: Basal cisterns are patent. No extra-axial fluid collections. The ventricles are symmetric in size and shape. Brain: No intracranial bleeds or masses. There is cerebral volume loss for age, with resultant ventricular and sulcal prominence. There are periventricular and deep white matter chronic small vessel ischemic changes. There is intracranial internal carotid artery atherosclerosis. Skull and face: There is a small subcutaneous hematoma in the right frontal region. There is a soft tissue laceration over the left vertex. No underlying fractures or debris. Calvarium and visualized facial bones appear intact, without suspicious lesions. Sinuses: Visualized sinuses and mastoids are clear. IMPRESSION: 1. No CT evidence of acute intracranial trauma. 2. Extracranial soft tissue injuries as described without underlying fractures or foreign body. 3. Age-appropriate exam. Dictated by: Lilliana Holbrook M.D. on 06/16/2020 at 20:18 Approved by: Lilliana Holbrook M.D. on 06/16/2020 at 20:23
--- NOTE | 2020-06-16 19:23 | DI.CT.S_ITS ---
PROCEDURE: CT CERVICAL SPINE WO CON INDICATIONS: Trauma TECHNIQUE: Noncontrast 3 mm thick sections acquired from the skull base to the T4 level. Sagittal and coronal reformats were then constructed. For radiation dose reduction, the following was used: automated exposure control, adjustment of mA and/or kV according to patient size. COMPARISON: None. FINDINGS: Image quality: Excellent. Bones: No fractures or dislocations. Degenerative retrolisthesis C5 on six and mild endplate osteophytosis. Disc height loss, endplate spurring, and right uncovertebral joint hypertrophy at C6-7. Visualized superior ribs are intact. Soft tissues: Prevertebral soft tissues are normal in thickness. No paravertebral hematomas. No apical pneumothoraces. Surgical clips at the base of the left neck and in the right medial lung apex. There is patchy parenchymal opacity and scarring in the right lung apex which will be detailed separately at the chest CT report. IMPRESSION: 1. No CT evidence of acute cervical spine injury. 2. Degenerative changes at C5-6 and C6-7 as described. Dictated by: Lilliana Holbrook M.D. on 06/16/2020 at 20:23 Approved by: Lilliana Holbrook M.D. on 06/16/2020 at 20:29
--- NOTE | 2020-06-16 19:23 | DI.CT.S_ITS ---
PROCEDURE: CT CHEST ABD PEL W CON INDICATIONS: Trauma TECHNIQUE: After the administration of intravenous contrast, 5 mm thick sections acquired from the lung apices to the symphysis. 2.5 mm thick coronal and sagittal reformats were acquired. Additional 7 mm thick coronal maximum intensity projection (MIP) reformats acquired through the lungs. Optional 10-minute delayed imaging may be performed from the kidneys to the bladder. For radiation dose reduction, the following was used: automated exposure control, adjustment of mA and/or kV according to patient size. COMPARISON: [facility], CT, CT CHEST WO CON, 03/12/2018, 12:17. [facility], CT, CHEST ABDOMEN PELVIS WITH CONTRAST, 10/03/2009, 9:29. FINDINGS: Image quality: Excellent. CHEST: Lungs: No pulmonary contusions or lacerations. No acute airspace opacities. No pneumothorax or hemothorax. Central and peripheral airways appear patent and normal in caliber. Surgical changes of prior right upper lobectomy and resultant right apical pleural plaquing, but also development of irregular patchy consolidative changes near the right upper lobe posterior staple line, irregular subpleural reticulation and patchy opacity anteriorly in the right, and mild reticulation at the lung bases. There is a focal parenchymal opacity centrally in the left lower lobe measuring roughly 1.9 cm, but difficult to measure due to respiratory motion. There is volume loss in the right thorax with rightward shift of mediastinal structures. Mediastinum: No mediastinal hematomas. Rightward shift of the mediastinum including the esophagus. No acute aortic pathology. Surgical clips in the right perihilar region. No definite adenopathy. No pericardial effusion. Moderate atherosclerosis. Thoracic aorta and pulmonary arteries demonstrate normal size and enhancement. Esophagus is normal in caliber. No hiatal hernia. Chest wall: Healed right posterior 4th rib fracture. 5th rib resection posteriorly and 6th rib buckle fracture, chronic. There are curvilinear deformities of remote left posterior rib fractures five through 10. No subcutaneous emphysema. No axillary or supraclavicular adenopathy. Thyroid gland is unremarkable . ABDOMEN: Solid organs: Liver is normal in size and enhancement, without lacerations. Gallbladder is normal . Biliary system is non-dilated. Pancreas enhances normally, without transection. Spleen is normal in size and enhancement, without lacerations. No adrenal hematomas. Both kidneys enhance normally. There is mild bilateral hydronephrosis Peritoneum and bowel: No free fluid or air. Unenhanced bowel loops demonstrate normal wall thickness and caliber. Increased quantity of rectal stool present. Nodes and vessels: No retroperitoneal or mesenteric adenopathy. Aorta and inferior vena cava are normal in size and enhancement. Miscellaneous: No ventral hernias. PELVIS: Genitourinary: The urinary bladder is distended. Bladder wall thickness is normal. Age-appropriate uterus. Miscellaneous: No inguinal hernias or adenopathy. Bones: Pelvic ring and hip joints appear intact. No vertebral compression fractures. Anterolisthesis L5 on S1 secondary to severe facet arthropathy. IMPRESSION: 1. No CT evidence of acute trauma to the chest, abdomen, or pelvis. 2. Remote prior right upper lobectomy with evidence of new multifocal parenchymal consolidations, mainly in the right lung, but one at the central left lower lung. Clinical correlation recommended. Findings may be secondary to acute infection, aspiration, or metastatic disease recurrence. 3. There are deformities of chronic left rib fractures and iatrogenic right rib deformities. No definite acute fractures. 4. Mild hydronephrosis bilaterally may result from urinary bladder distension. 5. Rectal obstipation. Dictated by: Lilliana Holbrook M.D. on 06/16/2020 at 20:30 Approved by: Lilliana Holbrook M.D. on 06/16/2020 at 20:44
--- NOTE | 2020-06-16 19:25 | ED.TRAUMA ---
HPI - Trauma General Chief Complaint: Fall Stated Complaint: GLF Time Seen by Provider: 06/16/20 19:15 Source: patient, family and EMS Mode of arrival: EMS Limitations: altered mental status History of Present Illness HPI narrative: 79F former smoker with history of COPD, GERD, Lymphoma in remission x5 years, and anemia presents with EMS for evaluation of fall with head injury. Patient admits to drinking and falling over while she was working in the garden. She states she fell forward and hit her head but does not really remember much after that. Family found her and activated EMS. She has a mild headache and denies loss of consciousness. She takes no blood thinners. She denies any chest pain or shortness of breath. She denies abdominal pain nor nausea, vomiting or diarrhea. She denies any extremity pain. Related Data Home Medications Medication Instructions Recorded Confirmed acetaminophen 650 mg PO Q4H PRN #0 10/25/12 02/16/20 atorvastatin [Lipitor] 10 mg PO HS #0 10/25/12 02/16/20 fluticasone propion-salmeterol 1 puff INH BIDRT #0 10/25/12 02/16/20 [Advair Diskus] sertraline [Zoloft] 150 mg PO QDAY #0 10/25/12 02/16/20 albuterol sulfate 1 neb INHALATION Q4H PRN 03/17/19 02/16/20 albuterol sulfate 2 puff INHALATION Q4H PRN 03/17/19 02/16/20 Spiriva with HandiHaler 1 cap INHALATION DAILY 01/02/20 02/16/20 ferrous gluconate 324 mg PO BID 01/02/20 02/16/20 trazodone 50 mg PO BEDTIME 01/02/20 02/16/20 Previous Rx's Medication Instructions Recorded esomeprazole magnesium 40 mg PO DAILY #30 cap 03/19/19 sodium,potassium,mag sulfates 17.5 177 ml PO DAILY #354 ml 12/16/19 gram-3.13 gram-1.6 gram oral soln Allergies Allergy/AdvReac Type Severity Reaction Status Date / Time No Known Drug Allergies Allergy Verified 02/16/20 11:12 Review of Systems Constitutional Constitutional: Denies chills, Denies fatigue, Denies fever(s), Denies frequent falls, Reports headache(s), Denies lethargy and Denies weakness Comments: confusion Eyes Eyes: Denies change in vision, Denies eye discharge, Denies irritation and Denies loss of vision ENT Ears, Nose, Mouth, and Throat: Denies change in voice, Denies dizziness, Reports headache(s), Denies neck pain, Denies sore throat and Denies throat swelling Comments: nose bleed Cardiovascular Cardiovascular: Denies chest pain, Denies irregular heart rhythm, Denies lightheadedness, Denies palpitations, Denies dyspnea, Denies dyspnea on exertion and Denies orthopnea Respiratory Respiratory: Denies cough, Denies dyspnea, Denies dyspnea on exertion and Denies wheezing Gastrointestinal Gastrointestinal: Denies abdominal pain, Denies change in bowel habits, Denies diarrhea, Denies nausea and Denies vomiting Musculoskeletal Musculoskeletal: Denies neck pain and Denies numbness Integumentary/Breasts Skin/Breast: Denies pruritus, Denies erythema, Denies rash and Reports wounds Neurologic Neurologic: Denies behavioral changes, Denies confusion, Denies dizziness, Denies frequent falls, Reports headache(s), Denies loss of vision, Denies numbness and Denies weakness Psychiatric Psychiatric: Denies anxiety, Denies behavioral changes, Denies confusion, Denies depression, Denies homicidal ideation and Denies suicidal ideation Endocrine Endocrine: Denies fatigue, Denies flushing and Denies palpitations Hematologic/Lymphatic Hematologic/Lymphatic: Denies easy bruising Allergic/Immunologic Allergic/Immunologic: Denies urticaria, Denies throat swelling and Denies wheezing Patient History Medical History COPD (chronic obstructive pulmonary disease) (Acute) GERD (gastroesophageal reflux disease) (Acute) Lung cancer (Acute) Lung nodule (Acute) Lymphoma (Acute) Surgical History S/P lobectomy of lung (Acute) Family History Sister Cancer Brother Cancer Social History household members: family and children Smoking Status: Former smoker alcohol intake: current substance use type: does not use Smoking Status: Former smoker alcohol intake frequency: 0-2 drinks per day Substance Use Type: does not use Exam Narrative Exam Narrative: GENERAL: [79] year old patient appears older than stated age. Thin, dried blood on forehead, confused, slurring words HEAD: Large parietal laceration, 8 cm, deep, minimal active bleeding, small galea defect. No evidence of depressed skull fracture EYES: No hyphema pupils equal round and reactive. Extraocular motions intact. No scleral icterus. No injection or drainage. ENT: 1 cm through and through laceration of the upper lip, centrally located dried blood in bilateral nostrils, no active bleeding, no nasal septal hematoma. Throat without erythema, tonsillar hypertrophy or exudate. Airway patent. NECK: Trachea midline. Non tender. C-collar in place CARDIOVASCULAR: Regular rate and rhythm without murmurs, gallops, or rubs. RESPIRATORY: Clear to auscultation. Breath sounds equal bilaterally. No wheezes, rales, or rhonchi. GASTROINTESTINAL: Abdomen soft, non-tender, nondistended. EXTREMITIES: No edema or joint tenderness. BACK: Nontender without deformity or crepitance. No flank tenderness. NEURO: A alert but confused SKIN: No rash or erythema of visible areas Initial Vital Signs Initial Vital Signs: Vital Signs Temperature 97.9 F 06/16/20 19:27 Pulse Rate 89 06/16/20 19:27 Respiratory Rate 18 06/16/20 19:27 Blood Pressure 144/70 H 06/16/20 19:27 Pulse Oximetry 97 06/16/20 19:27 Procedures Laceration Repair Laceration 1: Site: scalp Side (If applicable): left Size (cm): 8 Description: linear Depth: simple, single layer and involves muscle layer Local Anesthetic: lidocaine 1% and with epi Amount of anesthesia used (mL): 6 Pre-repair: wound explored and irrigated extensively Skin layer closed with: rusty Subcutaneous layer closed with: vicryl Size: 4-0 Technique: simple, interrupted Laceration 2: Site: lip Size (cm): 1 Description: linear Depth: involves muscle layer and [id number] Local Anesthetic: lidocaine 1% Pre-repair: wound explored and irrigated extensively Skin layer closed with: nylon Size (cm): 6-0 Number of sutures: 3 Technique: simple, interrupted Course Course Course Narrative: Patient has fall with head injury, largely due to alcohol, possibly low blood sugar. We have addressed low glucose, administered thiamine, addressed low potassium with potassium rider. Upon completion of wound care and receipt of imaging attempts made to ambulate the patient but she is very unsteady, continues to be a bit confused and a significant fall wrist. For that reason the patient be kept overnight in the hospital. I have consulted the trauma surgeon (Elli) who a seen and evaluated the patient and we agree that patient is nonsurgical and can be admitted to Medicine. Orders Ordered: ED Orders 06/16/20 19:05 Complete Blood Count AUTO DIFF Stat Comprehensive Metabolic Panel Stat Ethanol (ETOH) Stat Lipase Stat Partial Thromboplastin Time Stat Prothrombin Time INR Stat Troponin & CK Cardiac Panel Stat 06/16/20 19:22 Type and Screen Stat EKG-12 Lead Stat 06/16/20 19:23 CT cervical spine wo con Stat CT chest abd pel w con Stat CT head/brain wo con Stat 06/16/20 20:05 Urine Drug Screen, Rapid Stat Sodium Chloride (Normal Saline 0.9%) 1,000 mls @ 150 mls/hr IV CONT SHANE Last Admin: 06/16/20 20:06 Dose: 150 mls/hr Documented by: LEEANN Potassium Chloride 40 meq/ (Sodium Chloride) 520 mls @ 130 mls/hr IV NOW ONE Stop: 06/17/20 01:24 Last Admin: 06/16/20 21:48 Dose: 130 mls/hr Documented by: LEEANN Cosigned by: KJ Discontinued Medications Acetaminophen (Tylenol) 650 mg PO NOW ONE Stop: 06/16/20 21:35 Last Admin: 06/16/20 21:47 Dose: 650 mg Documented by: LEEANN Amoxicillin/Clavulanate Potassium (Augmentin 875-125 Mg) 1 tab PO NOW ONE Stop: 06/16/20 22:33 Last Admin: 06/16/20 22:43 Dose: 1 tab Documented by: LEEANN Dextrose (D50w) 25 gm IV NOW ONE Stop: 06/16/20 22:18 Last Admin: 06/16/20 22:36 Dose: 25 gm Documented by: LEEANN Diphtheria/Tetanus/Acell Pertussis (Adacel) 0.5 ml IM .ONCE ONE Stop: 06/16/20 19:24 Last Admin: 06/16/20 20:04 Dose: 0.5 ml Documented by: LEEANN Lidocaine/Epinephrine (Xylocaine 1% W/Epi) 1 ml SUBCUT NOW ONE Stop: 06/16/20 19:23 Last Admin: 06/16/20 20:05 Dose: 1 ml Documented by: LEEANN Thiamine HCl (Vitamin B-1) 100 mg IV NOW ONE Stop: 06/16/20 22:24 Last Admin: 06/16/20 22:33 Dose: 100 mg Documented by: LEEANN Vital Signs Vital signs: Vital Signs - 8 hr 06/16/20 19:27 Temperature 97.9 F Pulse Rate 89 Respiratory Rate 18 Blood Pressure 144/70 H Pulse Oximetry 97 MDM - Trauma Lab Data Result diagrams: 06/16/20 19:05 06/16/20 19:05 Labs: Lab Results 06/16/20 06/16/20 06/16/20 Range/Units 19:05 19:05 19:05 WBC 9.2 (4.5-11.0) X10^3/uL RBC 4.46 (4.0-5.2) X10^6/uL Hgb 11.6 L (12.0-16.0) g/dL Hct 36.4 (36-46) % MCV 81.6 (80-100) fL MCH 26.0 (26-34) PG MCHC 31.9 (30-36) % RDW 15.2 H (11.6-14.8) % Plt Count 249 (150-400) X10^3/uL Neut % (Auto) 47.2 L (50-75) % Lymph % (Auto) 43.0 H (25-40) % Stone % (Auto) 7.8 (3-14) % Eos % (Auto) 1.4 L (2-4) % Baso % (Auto) 0.6 (0-2) % Neut # (Auto) 4300 (0064-7242) /uL Lymph # (Auto) 3900 (4175-7961) /uL Stone # (Auto) 700 (0-900) /uL Eos # (Auto) 100 (0-450) /uL Baso # (Auto) 100 (0-100) /uL PT 10.4 (10.1-12.7) SECONDS INR 0.9 (0.9-1.3) APTT 25 L D (26.4-36.2) SECONDS Sodium 137 (137-145) mmol/L Potassium 3.2 L (3.4-5.1) mmol/L Chloride 101 (98-107) mmol/L Carbon Dioxide 26 (22-32) mmol/L BUN 11 (7-17) mg/dL Creatinine 0.68 (0.52-1.04) mg/dL Estimated GFR > 60.0 (>60) mL/min BUN/Creatinine Ratio 16.2 (6-22) Glucose 48 L (80-110) mg/dL Calcium 9.0 (8.4-10.2) mg/dL Total Bilirubin 0.4 (0.2-1.3) mg/dL AST 36 (14-36) IU/L ALT 28 (<35) IU/L Alkaline Phosphatase 75 (38-126) U/L Total Creatine Kinase 54 (30-135) U/L CK-MB (CK-2) TNP CK-MB (CK-2) Rel Index TNP Troponin I < 0.012 (0.01-0.034) ng/mL Total Protein 7.6 (6.3-8.2) g/dL Albumin 4.5 (3.5-5.0) g/dL Globulin 3.1 (1.7-4.1) g/dL Albumin/Globulin Ratio 1.5 (1.0-2.8) Lipase 275 (23-300) U/L U Opiates 300ng/mL cut (Negative) Ur Oxycodone Screen (Negative) Urine Methadone Screen (Negative) Ur Barbiturates Screen (Negative) U Tricyclic Antidepress (Negative) Ur Phencyclidine Scrn (Negative) Ur Amphetamines Screen (Negative) U Methamphetamines Scrn (Negative) Ur MDMA Scrn (Ecstasy) (Negative) U Benzodiazepines Scrn (Negative) Urine Cocaine Screen (Negative) U Marijuana (THC) Screen (Negative) Ethyl Alcohol 205 H ( - 10) mg/dL 06/16/ Range/Units 20:05 WBC (4.5-11.0) X10^3/uL RBC (4.0-5.2) X10^6/uL Hgb (12.0-16.0) g/dL Hct (36-46) % MCV (80-100) fL MCH (26-34) PG MCHC (30-36) % RDW (11.6-14.8) % Plt Count (150-400) X10^3/uL Neut % (Auto) (50-75) % Lymph % (Auto) (25-40) % Stone % (Auto) (3-14) % Eos % (Auto) (2-4) % Baso % (Auto) (0-2) % Neut # (Auto) (6409-3448) /uL Lymph # (Auto) (1690-8651) /uL Stone # (Auto) (0-900) /uL Eos # (Auto) (0-450) /uL Baso # (Auto) (0-100) /uL PT (10.1-12.7) SECONDS INR (0.9-1.3) APTT (26.4-36.2) SECONDS Sodium (137-145) mmol/L Potassium (3.4-5.1) mmol/L Chloride (98-107) mmol/L Carbon Dioxide (22-32) mmol/L BUN (7-17) mg/dL Creatinine (0.52-1.04) mg/dL Estimated GFR (>60) mL/min BUN/Creatinine Ratio (6-22) Glucose (80-110) mg/dL Calcium (8.4-10.2) mg/dL Total Bilirubin (0.2-1.3) mg/dL AST (14-36) IU/L ALT (<35) IU/L Alkaline Phosphatase (38-126) U/L Total Creatine Kinase (30-135) U/L CK-MB (CK-2) CK-MB (CK-2) Rel Index Troponin I (0.01-0.034) ng/mL Total Protein (6.3-8.2) g/dL Albumin (3.5-5.0) g/dL Globulin (1.7-4.1) g/dL Albumin/Globulin Ratio (1.0-2.8) Lipase (23-300) U/L U Opiates 300ng/mL cut Negative (Negative) Ur Oxycodone Screen Negative (Negative) Urine Methadone Screen Negative (Negative) Ur Barbiturates Screen Negative (Negative) U Tricyclic Antidepress Negative (Negative) Ur Phencyclidine Scrn Negative (Negative) Ur Amphetamines Screen Negative (Negative) U Methamphetamines Scrn Negative (Negative) Ur MDMA Scrn (Ecstasy) Negative (Negative) U Benzodiazepines Scrn Negative (Negative) Urine Cocaine Screen Negative (Negative) U Marijuana (THC) Screen Positive H (Negative) Ethyl Alcohol ( - 10) mg/dL Urine Dip Bedside Urine Glucose Negative Bedside Urine Bilirubin - Negative Urine Specific [place] 1.010 Bedside Urine Occult Blood - Negative Bedside Urine pH 6 Bedside Urine Protein - Negative Bedside Urine Urobilinogen - Negative Bedside Urine Nitrite - Negative Bedside Urine Leukocytes +/- [address] scan - head: Radiologist's Impression: Chart Viewer Diagnostics DATE TYPE STATUS REF RANGE/AUTHOR Hx 06/16/20 19:23 Lilliana Holbrook 06/16/20 19:23 Yusef,Lilliana 06/16/20 19:23 Lilliana Holbrook 01/02/20 21:49 Earl Montano 01/02/20 12:52 Javier Marie 01/02/20 10:21 01/02/20 10:21 01/02/20 00:00 Nancy Gleason 01/02/20 00:00 Carlita Fernandez 01/02/20 00:00 Carlita Fernandez 01/02/20 00:00 Hitesh Juarez 11/01/19 17:05 AvilaElvin 07/11/19 07:38 03/17/19 10:38 03/12/18 00:00 Hitesh Juarez Lida Warren 79, F0 1940 [facility], [facility] ED R06 43.091kg Fall Search Chart No Data to Display ONSET Today 19:27 Lida Warren F 1940 [place] [address] CT Scan Report Signed Patient: Lida Warren#: [id number] : [id number]:[id number] Age/Sex: 79 / FDate of Service: 06/16/20 Loc: ED Accession Number: [id number] Procedure: CT head/brain wo con Ordering Provider: Carlos Gonsales D.O. PROCEDURE: CT HEAD/BRAIN WO CON INDICATIONS: Trauma TECHNIQUE: Noncontrast 4.5 mm thick angled axial sections acquired from the foramen magnum to the vertex, with coronal and sagittal reformats. For radiation dose reduction, the following was used: automated exposure control, adjustment of mA and/or kV according to patient size. COMPARISON: None. FINDINGS: Image quality: Excellent. CSF spaces: Basal cisterns are patent. No extra-axial fluid collections. The ventricles are symmetric in size and shape. Brain: No intracranial bleeds or masses. There is cerebral volume loss for age, with resultant ventricular and sulcal prominence. There are periventricular and deep white matter chronic small vessel ischemic changes. There is intracranial internal carotid artery atherosclerosis. Skull and face: There is a small subcutaneous hematoma in the right frontal region. There is a soft tissue laceration over the left vertex. No underlying fractures or debris. Calvarium and visualized facial bones appear intact, without suspicious lesions. Sinuses: Visualized sinuses and mastoids are clear. IMPRESSION: 1. No CT evidence of acute intracranial trauma. 2. Extracranial soft tissue injuries as described without underlying fractures or foreign body. 3. Age-appropriate exam. Dictated by: Lilliana Holbrook M.D. on 06/16/2020 at 20:18 Approved by: Lilliana Holbrook M.D. on 06/16/2020 at 20:23 Chart Viewer Diagnostics DATE TYPE STATUS REF RANGE/AUTHOR Hx 06/16/20 19:23 Lilliana Holbrook 06/16/20 19:23 Lilliana Holbrook 06/16/20 19:23 Lilliana Holbrook 01/02/20 21:49 Earl Montano 01/02/20 12:52 Javier Marie 01/02/20 10:21 01/02/20 10:21 01/02/20 00:00 Nancy Gleason 01/02/20 00:00 Carlita Fernandez 01/02/20 00:00 Carlita Fernandez 01/02/20 00:00 Hitesh Juarez 11/01/19 17:05 Elvin Avila 07/11/19 07:38 03/17/19 10:38 03/12/18 00:00 Hitesh Juarez Evelia 79, F0 1940 [facility] ED R06 43.091kg Fall Search Chart No Data to Display ONSET Today 19:27 Lida Warren F [address] [address] [address] Scan Report Signed Patient: WarrenLidaMR#: [id number] : 2Acct:[id number] Age/Sex: 79 / FDate of Service: 06/16/20 Loc: ED Accession Number: [id number] Procedure: CT cervical spine wo con Ordering Provider: Carlos Gonsales D.O. PROCEDURE: CT CERVICAL SPINE WO CON INDICATIONS: Trauma TECHNIQUE: Noncontrast 3 mm thick sections acquired from the skull base to the T4 level. Sagittal and coronal reformats were then constructed. For radiation dose reduction, the following was used: automated exposure control, adjustment of mA and/or kV according to patient size. COMPARISON: None. FINDINGS: Image quality: Excellent. Bones: No fractures or dislocations. Degenerative retrolisthesis C5 on six and mild endplate osteophytosis. Disc height loss, endplate spurring, and right uncovertebral joint hypertrophy at C6-7. Visualized superior ribs are intact. Soft tissues: Prevertebral soft tissues are normal in thickness. No paravertebral hematomas. No apical pneumothoraces. Surgical clips at the base of the left neck and in the right medial lung apex. There is patchy parenchymal opacity and scarring in the right lung apex which will be detailed separately at the chest CT report. IMPRESSION: 1. No CT evidence of acute cervical spine injury. 2. Degenerative changes at C5-6 and C6-7 as described. Dictated by: Lilliana Holbrook M.D. on 06/16/2020 at 20:23 Approved by: Lilliana Holbrook M.D. on 06/16/2020 at 20:29 Signed Patient: Iain Warren#: [id number] : 2At:[id number] Age/Sex: 79 / FDate of Service: 06/16/20 Loc: ED Accession Number: [id number] Procedure: CT chest abd pel w con Ordering Provider: Carlos Gonsales D.O. PROCEDURE: CT CHEST ABD PEL W CON INDICATIONS: Trauma TECHNIQUE: After the administration of intravenous contrast, 5 mm thick sections acquired from the lung apices to the symphysis. 2.5 mm thick coronal and sagittal reformats were acquired. Additional 7 mm thick coronal maximum intensity projection (MIP) reformats acquired through the lungs. Optional 10-minute delayed imaging may be performed from the kidneys to the bladder. For radiation dose reduction, the following was used: automated exposure control, adjustment of mA and/or kV according to patient size. COMPARISON: [facility], CT, CT CHEST WO CON, 03/12/2018, 12:17. [facility], CT, CHEST ABDOMEN PELVIS WITH CONTRAST, 10/03/2009, 9:29. FINDINGS: Image quality: Excellent. CHEST: Lungs: No pulmonary contusions or lacerations. No acute airspace opacities. No pneumothorax or hemothorax. Central and peripheral airways appear patent and normal in caliber. Surgical changes of prior right upper lobectomy and resultant right apical pleural plaquing, but also development of irregular patchy consolidative changes near the right upper lobe posterior staple line, irregular subpleural reticulation and patchy opacity anteriorly in the right, and mild reticulation at the lung bases. There is a focal parenchymal opacity centrally in the left lower lobe measuring roughly 1.9 cm, but difficult to measure due to respiratory motion. There is volume loss in the right thorax with rightward shift of mediastinal structures. Mediastinum: No mediastinal hematomas. Rightward shift of the mediastinum including the esophagus. No acute aortic pathology. Surgical clips in the right perihilar region. No definite adenopathy. No pericardial effusion. Moderate atherosclerosis. Thoracic aorta and pulmonary arteries demonstrate normal size and enhancement. Esophagus is normal in caliber. No hiatal hernia. Chest wall: Healed right posterior 4th rib fracture. 5th rib resection posteriorly and 6th rib buckle fracture, chronic. There are curvilinear deformities of remote left posterior rib fractures five through 10. No subcutaneous emphysema. No axillary or supraclavicular adenopathy. Thyroid gland is unremarkable . ABDOMEN: Solid organs: Liver is normal in size and enhancement, without lacerations. Gallbladder is normal . Biliary system is non-dilated. Pancreas enhances normally, without transection. Spleen is normal in size and enhancement, without lacerations. No adrenal hematomas. Both kidneys enhance normally. There is mild bilateral hydronephrosis Peritoneum and bowel: No free fluid or air. Unenhanced bowel loops demonstrate normal wall thickness and caliber. Increased quantity of rectal stool present. Nodes and vessels: No retroperitoneal or mesenteric adenopathy. Aorta and inferior vena cava are normal in size and enhancement. Miscellaneous: No ventral hernias. PELVIS: Genitourinary: The urinary bladder is distended. Bladder wall thickness is normal. Age-appropriate uterus. Miscellaneous: No inguinal hernias or adenopathy. Bones: Pelvic ring and hip joints appear intact. No vertebral compression fractures. Anterolisthesis L5 on S1 secondary to severe facet arthropathy. IMPRESSION: 1. No CT evidence of acute trauma to the chest, abdomen, or pelvis. 2. Remote prior right upper lobectomy with evidence of new multifocal parenchymal consolidations, mainly in the right lung, but one at the central left lower lung. Clinical correlation recommended. Findings may be secondary to acute infection, aspiration, or metastatic disease recurrence. 3. There are deformities of chronic left rib fractures and iatrogenic right rib deformities. No definite acute fractures. 4. Mild hydronephrosis bilaterally may result from urinary bladder distension. 5. Rectal obstipation. Dictated by: Lilliana Holbrook M.D. on 06/16/2020 at 20:30 Approved by: Lilliana Holbrook M.D. on 06/16/2020 at 20:44 Discharge Plan Departure Patient Disposition: Admitted as Observation Clinical Impression: Acute hypokalemia, Hypoglycemia Head injury due to trauma Qualifiers: Encounter type: initial encounter Qualified Code(s): S09.90XA - Unspecified injury of head, initial encounter Concussion Qualifiers: Encounter type: initial encounter Loss of consciousness presence/duration: with LOC of unspecified duration Qualified Code(s): S06.0X9A - Concussion with loss of consciousness of unspecified duration, initial encounter Laceration of scalp Qualifiers: Encounter type: initial encounter Qualified Code(s): S01.01XA - Laceration without foreign body of scalp, initial encounter Complicated laceration of lip Qualifiers: Encounter type: initial encounter Qualified Code(s): S01.511A - Laceration without foreign body of lip, initial encounter Admit Date/Time: 06/16/20 22:34 Admit Provider: Perry Krause
[2020-06-16 19:27] VITALS: BP 144/70; PULSE 89; RESP 18; TEMP 36.6; O2SAT 97
[2020-06-16 19:33] LABS: Add Manual Diff / Slide Review NO; Basophils Absolute Auto 100 /uL (0-100); Basophils Percent Auto 0.6 % (0-2); Eosinophils Absolute Auto 100 /uL (0-450); Eosinophils Percent Auto 1.4 % (2-4); Hematocrit 36.4 % (36-46); Hemoglobin 11.6 g/dL (12.0-16.0); Lymphocytes Absolute Auto 3900 /uL (1100-4500); Mean Corpuscular HGB Conc 31.9 % (30-36); Mean Corpuscular Volume 81.6 fL (80-100); Monocytes Absolute Auto 700 /uL (0-900); Monocytes Percent Auto 7.8 % (3-14); Neutrophils Absolute Auto 4300 /uL (1500-7000); Neutrophils Percent Auto 47.2 % (50-75); Platelet Count 249 X10^3/uL (150-400); Red Blood Cell Count 4.46 X10^6/uL (4.0-5.2); Red Cell Distribution Width 15.2 % (11.6-14.8); White Blood Cell Count 9.2 X10^3/uL (4.5-11.0)
[2020-06-16 19:35] LABS: INR 0.9 (0.9-1.3); Prothrombin Time 10.4 SECONDS (10.1-12.7)
[2020-06-16 19:38] LABS: PTT Partial Thromboplastin Tim 25 SECONDS (26.4-36.2)
--- NOTE | 2020-06-16 19:42 | PC.NURSE ---
Pt placed in C-collar on arrival. No bony cervical step-offs. No neck tenderness. Pt denies pain. Patient is alert to self only. Confused to place and time. Follows commands. Laceration to top of head as well as an abrasion to back of head. Scant bloody drainage. Open to air. Laceration to mouth. Blood drainage. Dentures in place. Able to move all four extremities. Denies chest pain. Lungs sounds clear. Bowel tones active.
[2020-06-16 19:50] LABS: Alanine Aminotransferase 28 IU/L (<35); Albumin 4.5 g/dL (3.5-5.0); Albumin Globulin Ratio 1.5 (1.0-2.8); Alkaline Phosphatase 75 U/L (38-126); Aspartate Aminotransferase 36 IU/L (14-36); BUN Creatinine Ratio 16.2 (6-22); Bilirubin Total 0.4 mg/dL (0.2-1.3); Blood Urea Nitrogen 11 mg/dL (7-17); Carbon Dioxide 26 mmol/L (22-32); Chloride 101 mmol/L (98-107); Creatine Kinase 54 U/L (30-135); Estimated Glomerular Filt Rate > 60.0 mL/min (>60); Ethanol (ETOH) 205 mg/dL; Globulin 3.1 g/dL (1.7-4.1); Glucose 48 mg/dL (80-110); HEMOLYSIS 15 (0-50); Lipase 275 U/L (23-300); Potassium 3.2 mmol/L (3.4-5.1); Sodium 137 mmol/L (137-145); Total Protein 7.6 g/dL (6.3-8.2)
[2020-06-16 20:00] LABS: Troponin I < 0.012 ng/mL (0.01-0.034)
[2020-06-16] MEDS: TET,DIPH,PERTUSS(ACELL),VAC/PF 0.5 ML SYRINGE IM (20:04)
[2020-06-16] MEDS: LIDOCAINE 1% W/EPI 1 ML SUBCUT (20:05)
[2020-06-16] MEDS: SODIUM CHLORIDE 0.9% 1,000 ML 150 ML IV (20:06)
[2020-06-16 20:26] LABS: UR Morphine/Opiate cutoff 300 Negative (Negative); Ur Creatinine Normal (Normal); Ur Specific Gravity Normal (Normal); Urine Amphetamines Negative (Negative); Urine Barbiturates Negative (Negative); Urine Benzodiazepines Negative (Negative); Urine Cocaine Negative (Negative); Urine MDMA Negative (Negative); Urine Methadone Negative (Negative); Urine Methamphetamines Negative (Negative); Urine Oxycodone Negative (Negative); Urine Phencyclidine Negative (Negative); Urine Tetrahydrocannabinol Positive (Negative); Urine Tricyclic Antidepressant Negative (Negative); Urine pH Normal (Normal)
[2020-06-16] MEDS: ACETAMINOPHEN 325 MG TABLET 650 MG PO (21:47)
[2020-06-16] MEDS: POTASSIUM CHLORIDE 40 MEQ in SODIUM CHLORIDE 0.9% 500 ML 130 ML IV (21:48)
--- NOTE | 2020-06-16 22:30 | PM.CN ---
History of Present Illness Consult details Date Patient Seen: 06/16/20 Time Patient Seen: 22:30 Chief complaint: GLF Reason for consult: trauma protocol Requesting provider: Carlos Gonsales Narrative: The patient is a woman who was working in her garden and she has no idea what happened. She was brought to the emergency room. It was determined that she had been drinking though she has a very small woman. She does drink with some regularity but not a great deal. She has never had DTs. At the present time she complains of no pain whatsoever after 2 Tylenol. She says everything feels fine. Meds Home Medications and Allergies Home Medications Medication Instructions Recorded Confirmed Type acetaminophen 650 mg PO Q4H PRN #0 10/25/12 02/16/20 History atorvastatin [Lipitor] 10 mg PO HS #0 10/25/12 02/16/20 History fluticasone propion-salmeterol 1 puff INH BIDRT #0 10/25/12 02/16/20 History [Advair Diskus] sertraline [Zoloft] 150 mg PO QDAY #0 10/25/12 02/16/20 History albuterol sulfate 1 neb INHALATION Q4H PRN 03/17/19 02/16/20 History albuterol sulfate 2 puff INHALATION Q4H PRN 03/17/19 02/16/20 History esomeprazole magnesium 40 mg PO DAILY #30 cap 03/19/19 02/16/20 Rx sodium,potassium,mag sulfates 17.5 177 ml PO DAILY #354 ml 12/16/19 02/16/20 Rx gram-3.13 gram-1.6 gram oral soln Spiriva with HandiHaler 1 cap INHALATION DAILY 01/02/20 02/16/20 History ferrous gluconate 324 mg PO BID 01/02/20 02/16/20 History trazodone 50 mg PO BEDTIME 01/02/20 02/16/20 History Allergies Allergy/AdvReac Type Severity Reaction Status Date / Time No Known Drug Allergies Allergy Verified 02/16/20 11:12 Review of Systems Review of Systems Narrative: Patient denies visual difficulties double vision pain arise no trouble swallowing. She has no teeth. Noted pain in her head at this time. She was complaining of his head pain when she 1st came in apparently. No neck pain no chest pain no abdominal pain. No black or bloody bowel movements. No seizures or blackouts prior to this. She did have a gastroesophageal perforation in December of this year and required an operation to repair it. She has had a portion of a lung removed for pneumonia. She has chronic lung issues and is on various meds for her respiratory diseases. She had a colonoscopy last year. Exam Vital Signs (past 8 hours): - 06/16/20 19:27 Temperature 97.9 F Pulse Rate 89 Respiratory Rate 18 Blood Pressure 144/70 H Pulse Oximetry 97 Oxygen Delivery Method Room Air Narrative Exam Narrative: Right pleasant very tiny woman in no apparent distress. She has sutures on her upper lip. She has rusty in the left scalp. Her extraocular movements are intact. Face is symmetric. Tongue is midline. The uvula elevates in the midline. Masseter strength is equal bilaterally and 2+. Sternocleidomastoid strength is 2+ bilaterally. Motor function of her extremities is within normal limits. Strength is appropriate to size and age. No deformities noted. She is edentulous. No open lesions about the mouth or the lip. There is as I said a suture repair above the lip noted. Her neck is supple there is no tenderness over her spine ever neck thorax or lower back. There is no chest pain with movement or compression. Trachea is midline mobile thyroid is not enlarged there is no evidence of neck trauma. Her abdomen is scaphoid soft there is no tenderness there are no masses. Scars noted. Extremities without cyanosis clubbing edema or deformity. Skin is pale and thin. She has very little subcu fat. Very little muscle mass. Objective Imaging CT scan - chest: My impression: Patient was scan from head to pelvis. No acute injuries noted. Labs Result Diagrams: 06/16/20 19:05 06/16/20 19:05 Labs: Laboratory Results - last 24 hr 06/16/20 06/16/20 06/16/20 19:05 19:05 19:05 WBC 9.2 RBC 4.46 Hgb 11.6 L Hct 36.4 MCV 81.6 MCH 26.0 MCHC 31.9 RDW 15.2 H Plt Count 249 Neut % (Auto) 47.2 L Lymph % (Auto) 43.0 H [place] % (Auto) 7.8 Eos % (Auto) 1.4 L Baso % (Auto) 0.6 Neut # (Auto) 4300 Lymph # (Auto) 3900 [place] # (Auto) 700 Eos # (Auto) 100 Baso # (Auto) 100 PT 10.4 INR 0.9 APTT 25 L D Sodium 137 Potassium 3.2 L Chloride 101 Carbon Dioxide 26 BUN 11 Creatinine 0.68 Estimated GFR > 60.0 BUN/Creatinine Ratio 16.2 Glucose 48 L Calcium 9.0 Total Bilirubin 0.4 AST 36 ALT 28 Alkaline Phosphatase 75 Total Creatine Kinase 54 CK-MB (CK-2) TNP CK-MB (CK-2) Rel Index TNP Troponin I < 0.012 Total Protein 7.6 Albumin 4.5 Globulin 3.1 Albumin/Globulin Ratio 1.5 Lipase 275 U Opiates 300ng/mL cut Ur Oxycodone Screen Urine Methadone Screen Ur Barbiturates Screen U Tricyclic Antidepress Ur Phencyclidine Scrn Ur Amphetamines Screen U Methamphetamines Scrn Ur MDMA Scrn (Ecstasy) U Benzodiazepines Scrn Urine Cocaine Screen U Marijuana (THC) Screen Ethyl Alcohol 205 H 06/16/20 20:05 WBC RBC Hgb Hct MCV MCH MCHC RDW Plt Count Neut % (Auto) Lymph % (Auto) [place] % (Auto) Eos % (Auto) Baso % (Auto) Neut # (Auto) Lymph # (Auto) [place] # (Auto) Eos # (Auto) Baso # (Auto) PT INR APTT Sodium Potassium Chloride Carbon Dioxide BUN Creatinine Estimated GFR BUN/Creatinine Ratio Glucose Calcium Total Bilirubin AST ALT Alkaline Phosphatase Total Creatine Kinase CK-MB (CK-2) CK-MB (CK-2) Rel Index Troponin I Total Protein Albumin Globulin Albumin/Globulin Ratio Lipase U Opiates 300ng/mL cut Negative Ur Oxycodone Screen Negative Urine Methadone Screen Negative Ur Barbiturates Screen Negative U Tricyclic Antidepress Negative Ur Phencyclidine Scrn Negative Ur Amphetamines Screen Negative U Methamphetamines Scrn Negative Ur MDMA Scrn (Ecstasy) Negative U Benzodiazepines Scrn Negative Urine Cocaine Screen Negative U Marijuana (THC) Screen Positive H Ethyl Alcohol Assessment & Plan Assessment & Plan narrative: Ground level fall with facial and scalp laceration. No other acute findings. History of remote trauma. Unclear the source of syncope given her lack of memory for the event. It is not clear if she had syncope and fell or fell and hit her head and had loss of consciousness. No other significant trauma is noted on her scans or physical exam. She does have a lot of stool in the rectal vault might benefit from milk of magnesia or similar. She also has a low potassium which the ER physician has ordered K riders to correct. She is being admitted to her primary care service because she is very unsteady on her feet, which may be related to her alcohol level. I can find no localizing signs to or traumatic radiologic evaluation to describe it to a ENGINE DISPATCHER injury source.
[2020-06-16] MEDS: THIAMINE 200 MG/2 ML VIAL 100 MG IV (22:33)
[2020-06-16] MEDS: DEXTROSE 50 % IN WATER 25 GM/50 ML SYRINGE IV (22:36)
[2020-06-16] MEDS: AMOXICILLIN/CLAV 875/125 MG 1 TAB PO (22:43)
[2020-06-16 22:47] VITALS: BP 102/54; PULSE 78; RESP 18; O2SAT 95
[2020-06-16 23:47] LABS: COVID19 -Nasal RAPID Negative (Negative)
[2020-06-16 23:52] VITALS: BP 128/59; PULSE 73; RESP 20; O2SAT 97
[2020-06-17 00:30] VITALS: BP 139/98; PULSE 76; RESP 16; TEMP 36.4; O2SAT 93
[2020-06-17 00:39] VITALS: BMI 16.2
[2020-06-17] MEDS: ATORVASTATIN 10 MG TABLET PO (01:44)
[2020-06-17] MEDS: FLUTICASONE/SALMETEROL 100/50 60 PUFF DISKUS INH ×2 (01:44→09:25)
[2020-06-17] MEDS: MAGNESIUM SULFATE 2 GM, FOLIC ACID 1 MG, THIAMINE 100 MG, MULTIVITAMIN 10 ML in SODIUM ... IV (02:30)
--- NOTE | 2020-06-17 03:00 | PC.NURSE ---
0300 this WOOL SHEARING SUPERVISOR did a CBG check on pt in room 206 as advised by RN. CBG read 82 by finger stick. End of note.
--- NOTE | 2020-06-17 03:02 | PC.ADMIT ---
[address] [facility] Admission Note: Pt arrived from ED at 0030. [facility] A&Ox3 - pt notes she does not remember falling and hurting herself. Unable to remember details of home medications - will pass on med req to day shift. No c/o of pain. PERRLA Bed alarm on - pt reminded to call for help if necessary. Slight oozing of blood from upper lip laceration. SCD's in place, IV fluids infusing per order The patient,Lida Warren,79 y/o, was given written information regarding hospital policies, unit procedures and contact persons. Patient's smoking status: Former smoker. Vital Signs - 8 hr 06/16/20 19:27 06/16/20 22:47 06/16/20 23:52 Temperature 97.9 F Pulse Rate 89 78 73 Respiratory Rate 18 18 20 Blood Pressure 144/70 H 102/54 L 128/59 L Pulse Oximetry 97 95 97 06/17/20 00:30 Temperature 97.6 F Pulse Rate 76 Respiratory Rate 16 Blood Pressure 139/98 H Pulse Oximetry 93
--- NOTE | 2020-06-17 03:29 | PC.NURSE ---
Recheck of BG at 0300 = 82.
[2020-06-17] MEDS: ACETAMINOPHEN 325 MG TABLET 650 MG PO (05:03)
[2020-06-17 06:04] LABS: Blood Urea Nitrogen 8 mg/dL (7-17); Calcium 8.4 mg/dL (8.4-10.2); Carbon Dioxide 24 mmol/L (22-32); Chloride 108 mmol/L (98-107); Estimated Glomerular Filt Rate > 60.0 mL/min (>60); Ethanol (ETOH) 19 mg/dL; Glucose 93 mg/dL (80-110); HEMOLYSIS < 15 (0-50); Potassium 4.3 mmol/L (3.4-5.1); Sodium 139 mmol/L (137-145)
[2020-06-17 07:00] VITALS: O2SAT 98
[2020-06-17 09:00] VITALS: BP 122/68; PULSE 81; RESP 18; TEMP 36.7; O2SAT 94
[2020-06-17] MEDS: AMOXICILLIN/CLAV 875/125 MG 1 TAB PO (09:24)
[2020-06-17] MEDS: PANTOPRAZOLE 40 MG TABLET PO (09:24)
[2020-06-17 09:26] VITALS: O2SAT 98
--- NOTE | 2020-06-17 09:28 | P.HP_ITS ---
History of Present Illness History of Present Illness Date Patient Seen: 06/17/20 Time Patient Seen: 09:28 Chief complaint: GLF Narrative: 79-year-old female history of COPD and non-Hodgkin's lymphoma and more recent microcytic anemia admitted via the emergency department after a fall with head injury. Patient herself has no recollection of events of yesterday and so information is obtained from the ER physician basically. She admits to drinking yesterday though she does remember that much (although only 1 beer). She told the ER physician that she fell forward and hit her head but does not remember much after that. Family eventually found her and activated EMS. Upon presentation she has a mild headache denies any actual loss of consciousness. Has no abdominal or other symptoms beyond bit of head pain and obvious trauma with bleeding. She was evaluated in emergency department including, cervical spine CT, and chest abdominal pelvic CT as part of the trauma protocol. No significant injuries were found beyond the obvious head laceration as well as upper lip laceration. Lacerations were closed in the emergency department. She was unable to walk or ambulate on her own safely and so was admitted for continued observation overnight This morning she has been up to the commode without any difficulty. Nursing staff reports she seems to be a baseline as far as they can tell. Patient is alert oriented awake other than having little recollection of events of yesterday has really no complaints. Denies any pain in her head. No numbness tingling hands feet arms legs Patient does report only the 1 beer and no additional alcohol. However her alcohol level would suggest far more than that in fact is still detectable even this morning. Patient History Medical History Alcohol abuse (Chronic) Bronchiectasis (Chronic) COPD (chronic obstructive pulmonary disease) (Acute) Degenerative joint disease (DJD) of lumbar spine (Chronic) Depression (Chronic) GERD (gastroesophageal reflux disease) (Acute) Hyperlipidemia, mixed (Chronic) Immune disorder (Chronic) Lung nodule (Acute) Non Hodgkin's lymphoma (Acute) Pulmonary embolism (Acute) Surgical History History of bladder suspension procedure (Acute ~08/2008) S/P lobectomy of lung (Acute 12/07/09) Status post surgery (Acute ~12/2003) Family & Social History Family History Sister Cancer Brother Cancer Social History: household members family,children Prior Living Arrangements House Safety & Behavioral: Feels Safe in Current Yes Environment Been Physically Hurt or No Threatened By a Person Suicidal Ideation Description None Tobacco & Substance use: Tobacco type cigarettes Smoking Status Former smoker alcohol intake current alcohol intake frequency 0-2 drinks per day Substance Use Type does not use Meds Home Medications and Allergies Home Medications Medication Instructions Recorded Confirmed Type acetaminophen 650 mg PO Q4H PRN #0 10/25/12 06/17/20 History atorvastatin [Lipitor] 10 mg PO HS #0 10/25/12 06/17/20 History sertraline [Zoloft] 150 mg PO QDAY #0 10/25/12 02/16/20 History albuterol sulfate 1 puff INHALATION Q4H PRN 03/17/19 06/17/20 History esomeprazole magnesium 40 mg PO DAILY #30 cap 03/19/19 02/16/20 Rx Spiriva with HandiHaler 1 cap INHALATION DAILY 01/02/20 02/16/20 History trazodone 50 mg PO BEDTIME 01/02/20 02/16/20 History amoxicillin-pot clavulanate 1 tab PO BID #18 tab 06/17/20 Rx [Augmentin] fluticasone propion-salmeterol 1 inh INHALATION BID 06/17/20 06/17/20 History [Advair Diskus] Allergies Allergy/AdvReac Type Severity Reaction Status Date / Time No Known Drug Allergies Allergy Verified 02/16/20 11:12 Review of Systems Constitutional Constitutional: Denies excessive sweating, Denies fever(s), Denies headache(s), Denies weakness, Denies weight gain and Denies weight loss Eyes Eyes: Denies change in vision, Denies itchy eyes, Denies loss of vision and Denies other visual disturbances ENT Ears, Nose, Mouth, and Throat: No change in voice, No dysphagia, No dizziness, No otalgia, No headache(s), No hoarseness, No lip swelling, No neck pain, No sore throat, No throat swelling and No tongue swelling Cardiovascular Cardiovascular: Denies chest pain, Denies syncope, Denies rapid heart rate, Denies irregular heart rhythm, Denies palpitations, Denies dyspnea, Denies dyspnea on exertion and Denies slow heart rate Respiratory Respiratory: Denies chest congestion, Denies cough, Denies hemoptysis, Denies dyspnea, Denies dyspnea on exertion, Denies stridor and Denies wheezing Gastrointestinal Gastrointestinal: Denies abdominal pain, Denies bloating, Denies change in bowel habits, Denies change in stool character, Denies dysphagia, Denies nausea, Den ies vomiting and Denies hematemesis Genitourinary Genitourinary: Denies hematuria, Denies urinary frequency and Denies difficulty voiding Musculoskeletal Musculoskeletal: Denies abnormal gait, Denies myalgias, Denies arthralgias, Denies limited range of motion and Denies neck pain Integumentary/Breasts Skin/Breast: Denies bleeding lesions, Denies change in pigmentation, Denies changing lesions, Denies new lesions, Denies rash, Denies skin swelling, Denies sores and Denies jaundice Neurologic Neurologic: Denies abnormal speech, Denies abnormal gait, Denies behavioral changes, Denies confusion, Denies dizziness, Denies syncope, Denies headache(s), Denies loss of vision, Denies memory loss, Denies seizure-like activity, Denies paresthesias and Denies weakness Psychiatric Psychiatric: Denies behavioral changes, Denies change in appetite, Denies confusion, Denies difficulty concentrating, Denies auditory hallucinations, Denies memory loss, Denies mood swings and Denies suicidal ideation Endocrine Endocrine: Denies excessive sweating, Denies flushing, Denies polyuria and Denies palpitations Hematologic/Lymphatic Hematologic/Lymphatic: Denies easy bleeding, Denies easy bruising and Denies lymphadenopathy Allergic/Immunologic Allergic/Immunologic: Denies urticaria, Denies itchy eyes, Denies lip swelling, Denies throat swelling, Denies tongue swelling and Denies wheezing Exam Vital Signs (past 8 hours): Oxygen Delivery Method Room Air Oxygen Flow Rate 0 Narrative Exam Narrative: Elderly female in no obvious distress sitting in her hospital bed HEENT-left parietal area with crusted blood in the hair and rusty present, upper lip sutures in place Neck-no lymphadenopathy Lungs-good breath sounds clear Heart-regular rate and rhythm no murmur Abdomen-benign Extremities-no clubbing edema or cyanosis Objective Labs Result Diagrams: 06/16/20 19:05 06/17/20 05:36 Labs: Laboratory Results - last 24 hr 06/16/20 06/16/20 06/16/20 19:05 19:05 19:05 WBC 9.2 RBC 4.46 Hgb 11.6 L Hct 36.4 MCV 81.6 MCH 26.0 MCHC 31.9 RDW 15.2 H Plt Count 249 Neut % (Auto) 47.2 L Lymph % (Auto) 43.0 H [place] % (Auto) 7.8 Eos % (Auto) 1.4 L Baso % (Auto) 0.6 Neut # (Auto) 4300 Lymph # (Auto) 3900 [place] # (Auto) 700 Eos # (Auto) 100 Baso # (Auto) 100 PT 10.4 INR 0.9 APTT 25 L D Sodium 137 Potassium 3.2 L Chloride 101 Carbon Dioxide 26 BUN 11 Creatinine 0.68 Estimated GFR > 60.0 BUN/Creatinine Ratio 16.2 Glucose 48 L Calcium 9.0 Total Bilirubin 0.4 AST 36 ALT 28 Alkaline Phosphatase 75 Total Creatine Kinase 54 CK-MB (CK-2) TNP CK-MB (CK-2) Rel Index TNP Troponin I < 0.012 Total Protein 7.6 Albumin 4.5 Globulin 3.1 Albumin/Globulin Ratio 1.5 Lipase 275 U Opiates 300ng/mL cut Ur Oxycodone Screen Urine Methadone Screen Ur Barbiturates Screen U Tricyclic Antidepress Ur Phencyclidine Scrn Ur Amphetamines Screen U Methamphetamines Scrn Ur MDMA Scrn (Ecstasy) U Benzodiazepines Scrn Urine Cocaine Screen U Marijuana (THC) Screen Ethyl Alcohol 205 H COVID-19 PCR 06/16/20 06/16/20 06/17/20 20:05 22:50 05:36 WBC RBC Hgb Hct MCV MCH MCHC RDW Plt Count Neut % (Auto) Lymph % (Auto) [place] % (Auto) Eos % (Auto) Baso % (Auto) Neut # (Auto) Lymph # (Auto) [place] # (Auto) Eos # (Auto) Baso # (Auto) PT INR APTT Sodium 139 Potassium 4.3 Chloride 108 H Carbon Dioxide 24 BUN 8 Creatinine 0.57 Estimated GFR > 60.0 BUN/Creatinine Ratio 14.0 Glucose 93 Calcium 8.4 Total Bilirubin AST ALT Alkaline Phosphatase Total Creatine Kinase CK-MB (CK-2) CK-MB (CK-2) Rel Index Troponin I Total Protein Albumin Globulin Albumin/Globulin Ratio Lipase U Opiates 300ng/mL cut Negative Ur Oxycodone Screen Negative Urine Methadone Screen Negative Ur Barbiturates Screen Negative U Tricyclic Antidepress Negative Ur Phencyclidine Scrn Negative Ur Amphetamines Screen Negative U Methamphetamines Scrn Negative Ur MDMA Scrn (Ecstasy) Negative U Benzodiazepines Scrn Negative Urine Cocaine Screen Negative U Marijuana (THC) Screen Positive H Ethyl Alcohol 19 H COVID-19 PCR Negative Assessment & Plan Assessment & Plan narrative: 1. Status post fall with head trauma as above-no evidence of additional injury. No evidence of neurologic dysfunction. Wounds are well closed without evidence of bleeding. Would recommend continued antibiotic therapy given the significant lip/oral laceration that was closed. Does appear to be back to baseline and can likely be discharged home 2. Alcohol abuse-patient clearly is consuming alcohol excessively with her blood alcohol level being is abnormal as it was and she clearly is in denial about this given her reported 1 beer only yesterday. Also evidence of THC in her system. Recommend to her that she seek some sort of counseling and treatment fo r her alcohol abuse. Patient denies she has a problem 3. Hypokalemia-patient modestly hypokalemic upon admission much improved this morning. 4. COPD-continue patient's usual inhalers 5. Depression-continue patient's sertraline 6. Overall patient appears to be back to baseline and can likely be discharged home later this morning. Quality VTE Deep Vein Thrombosis/Pulmonary Embolism Present on Admission: No
[2020-06-17 11:10] VITALS: BP 132/58; PULSE 79; RESP 18; TEMP 36.6; O2SAT 96
--- NOTE | 2020-06-17 13:22 | PC.NURSE ---
Pt dressed and ready for discharge to home with daughter, reviewed d/c information, discharge meds, time of last dose, encourage fluid intake, reviewed stroke information, pt denies further questions. Pt out via w/c by MEDICAL TERRITORY MANAGER to POV with daughter and all belongings.
--- NOTE | 2020-06-17 14:11 | CM.DANOTE ---
Addendum entered by Armida Cordova LPN 06/17/20 14:27: Went to room to check in with pt. She had already left for home in company of her daughter and with a followup appt planned with PCP. No concerns re the d/c today were noted by the care team members. Original Note: DCP: assessment: case received, EMR reviewed and discussed in Team Rounds. Pt is a 79 year old female who admitted last night to care of Dr. Krause. PCP: Dr. Padilla Payer: Medicare and [employer]. A d/c order is now in place.
--- NOTE | 2020-06-26 00:09 | PC.NURSE ---
Late Entry: Normal saline infusion initiated 06/16 at 20:06, stopped with d/c'd order 06/17 at 00:32. Potassium infusion initiated 06/17 at 21:48 complete 06/17 at01:49. Magnesium/Folic/Thiamine infusion initiated 06/17 at 02:30 complete at 10:39.
== END 2020-06-17 13:25 | disposition home or self-care (01) ==
LOC: ED 22:34 → AC 22:35
PROVIDERS: Admitting Provider Internal Medicine; Emergency Provider Emergency Medicine; PCP Family Medicine; Referring Provider Emergency Medicine; Visit Provider Family Medicine
DX: S06.0X9A Concussion with loss of consciousness of unspecified duration, initial encounter (principal); R51 Headache; J44.9 Chronic obstructive pulmonary disease, unspecified; K21.9 Gastro-esophageal reflux disease without esophagitis; Z85.72 Personal history of non-Hodgkin lymphomas; F32.9 Major depressive disorder, single episode, unspecified; D50.9 Iron deficiency anemia, unspecified; F10.10 Alcohol abuse, uncomplicated; F12.90 Cannabis use, unspecified, uncomplicated; E87.6 Hypokalemia; W18.39XA Other fall on same level, initial encounter; Y93.H2 Activity, gardening and landscaping; S01.01XA Laceration without foreign body of scalp, initial encounter; S01.511A Laceration without foreign body of lip, initial encounter; Z11.59 Encounter for screening for other viral diseases
CPT/HCPCS: 12004; 12011; 36415; 70450; 71260; 72125; 74177; 80048; 80053; 80305; 80320; 81003; 82550; 83690; 84484; 85025; 85610; 85730; 87635; 90471; 93005; 94640; 96361; 96365; 96366; 96367; 99218; 99225; 99285; G0378; 90715; J3475; J3480; Q9967

== ENCOUNTER 2020-10-11 17:51 | Emergency (ER) | payer MEDICARE, OTHER, SELFPAY ==
[2020-10-11 17:58] VITALS: BP 143/71; PULSE 104; RESP 16; O2SAT 96
--- NOTE | 2020-10-11 18:08 | DI.CT.S_ITS ---
PROCEDURE: CT HEAD/BRAIN WO CON INDICATIONS: Fall, +LOC TECHNIQUE: Noncontrast 4.5 mm thick angled axial sections acquired from the foramen magnum to the vertex, with coronal and sagittal reformats. For radiation dose reduction, the following was used: automated exposure control, adjustment of mA and/or kV according to patient size. COMPARISON: [facility], CT, CT HEAD/BRAIN WO CON, 06/16/2020, 19:26. FINDINGS: Image quality: Excellent. CSF spaces: Basal cisterns are patent. No extra-axial fluid collections. The ventricles are symmetric in size and shape. Brain: No intracranial bleeds or masses. There is cerebral volume loss for age, with resultant ventricular and sulcal prominence. There are periventricular and deep white matter chronic small vessel ischemic changes. There is intracranial internal carotid artery atherosclerosis. Skull and face: Calvarium and visualized facial bones appear intact, without suspicious lesions. Sinuses: There is for air-fluid levels in maxillary sinuses bilaterally. The mastoids are clear. IMPRESSION: 1. No acute intracranial abnormalities. 2. Cerebral volume loss and chronic microvascular ischemic changes. 3. Air-fluid levels in maxillary sinuses bilaterally. Please see separate facial bone CT for detail. Dictated by: Jordana Jacobs M.D. on 10/11/2020 at 18:52 Approved by: Jordana Jacobs M.D. on 10/11/2020 at 18:54
--- NOTE | 2020-10-11 18:08 | DI.CT.S_ITS ---
PROCEDURE: CT FACIAL BONES WO CON INDICATIONS: Fall, +LOC TECHNIQUE: Noncontrast 2.5 mm thick axial images acquired from the mandible through the frontal sinuses, with coronal and sagittal reformatting. For radiation dose reduction, the following was used: automated exposure control, adjustment of mA and/or kV according to patient size. COMPARISON: None. FINDINGS: Image quality: Mild motion artifacts. Bones and teeth: Bilateral nasal bone fractures. Bilateral maxillary sinus wall fractures, involving the anterior, lateral and posterior wall of the right maxillary sinus, and the anterior, medial, lateral, posterior wall of the left maxillary sinus. There are mildly displaced fractures of the right medial and lateral pterygoid plates, and the left medial pterygoid plate. Orbital corona are intact. Visualized portions of the mandible demonstrate no fractures or subluxation. Zygomatic arches are intact. Visualized portions of the skull base and auditory canals are intact. Sinuses: There are air-fluid levels in maxillary sinuses bilaterally. Mastoid air cells are aerated. Soft tissues: No edema, masses, or fluid collections. No enlarged lymph nodes. No soft tissue lacerations or debris. Vascular: Visualized vascular structures appear normal in the absence of contrast. Bony vascular foramina and canals are intact. IMPRESSION: 1. Bilateral nasal bone fractures. 2. Bilateral maxillary sinus wall fractures. 3. Bilateral pterygoid plate fractures. 4. Air-fluid levels in maxillary sinuses bilaterally consistent with blood. 5. Orbits and globes are intact. Dictated by: Jordana Jacobs M.D. on 10/11/2020 at 18:54 Approved by: Jordana Jacobs M.D. on 10/11/2020 at 19:02
--- NOTE | 2020-10-11 18:08 | DI.CT.S_ITS ---
PROCEDURE: CT CERVICAL SPINE WO CON INDICATIONS: Fall, +LOC TECHNIQUE: Noncontrast 3 mm thick sections acquired from the skull base to the T4 level. Sagittal and coronal reformats were then constructed. For radiation dose reduction, the following was used: automated exposure control, adjustment of mA and/or kV according to patient size. COMPARISON: [facility], CT, CT CHEST ABD PEL W CON, 06/16/2020, 19:26. [facility], CT, CT CERVICAL SPINE WO CON, 06/16/2020, 19:26. FINDINGS: Image quality: Excellent. Bones: No fractures or dislocations. There is degenerative changes in cervical spine, moderate at C5-C6 and C6-C7. Mild bilateral facet arthropathy. Visualized superior ribs are intact. Soft tissues: Prevertebral soft tissues are normal in thickness. No paravertebral hematomas. There are bilateral infiltrate apical scars, right greater than left. IMPRESSION: 1. No fractures. 2. Degenerative changes in cervical spine. 3. Bilateral apical scars, right greater than left. Dictated by: Jordana Jacobs M.D. on 10/11/2020 at 19:03 Approved by: Jordana Jacobs M.D. on 10/11/2020 at 19:07
--- NOTE | 2020-10-11 19:32 | ED_ITS ---
HPI - Wound/Laceration General Chief Complaint: Wound/Laceration Stated Complaint: Fall, Nose Bleed Time Seen by Provider: 10/11/20 19:26 Source: patient Mode of arrival: Wheelchair History of Present Illness HPI narrative: Patient brought in by family. Tripped and fell into her garage landing on her face and posting at her left wrist. Complains of facial pain as well as left wrist and elbow pain. Denies any loss of consciousness. No confusion no vision changes no double vision no blurred vision. No neck pain. Is not on any blood thinners. Denies any malocclusion. Has epistaxis. Pain control at this time. Patient is awake alert oriented x4. Related Data Home Medications Medication Instructions Recorded Confirmed acetaminophen 650 mg PO Q4H PRN #0 10/25/12 06/17/20 atorvastatin [Lipitor] 10 mg PO HS #0 10/25/12 06/17/20 sertraline [Zoloft] 150 mg PO QDAY #0 10/25/12 02/16/20 albuterol sulfate 1 puff INHALATION Q4H PRN 03/17/19 06/17/20 Spiriva with HandiHaler 1 cap INHALATION DAILY 01/02/20 02/16/20 trazodone 50 mg PO BEDTIME 01/02/20 02/16/20 fluticasone propion-salmeterol 1 inh INHALATION BID 06/17/20 06/17/20 [Advair Diskus] Previous Rx's Medication Instructions Recorded esomeprazole magnesium 40 mg PO DAILY #30 cap 03/19/19 amoxicillin-pot clavulanate 1 tab PO BID #18 tab 06/17/20 [Augmentin] hydrocodone-acetaminophen [[place]] 1 tab PO Q4-6H PRN #20 tab 10/12/20 Allergies Allergy/AdvReac Type Severity Reaction Status Date / Time No Known Drug Allergies Allergy Verified 10/11/20 18:03 Review of Systems Review of Systems Narrative: GENERAL: Denies chills, fatigue, malaise, fever, sweats. HEENT: Denies sinus pain, ear pain, sore throat, difficulty swallowing RESPIRATORY: Denies dyspnea, cough CARDIOVASCULAR: Denies chest pain, palpitations, edema, GASTROINTESTINAL: Denies nausea, vomiting, abdominal pain, diarrhea, constipation, melena. : Denies dysuria, frequency, hematuria MUSCULOSKELETAL: Complains muscle or bony pain SKIN: Denies rash, skin lesions NEUROLOGIC: Denies weakness, headache, numbness, change in speech, confusion PSYCHIATRIC: No SI or HI or hallucinations ROS Unobtainable: All systems reviewed & are unremarkable except as noted in HPI and below Patient History Medical History (Updated 10/12/20 @ 01:26 by Jani Camilo MD) Alcohol abuse Bronchiectasis COPD (chronic obstructive pulmonary disease) Degenerative joint disease (DJD) of lumbar spine Depression GERD (gastroesophageal reflux disease) Hyperlipidemia, mixed Immune disorder Lung nodule Non Hodgkin's lymphoma Pulmonary embolism Surgical History History of bladder suspension procedure (~08/2008) 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 Well-nourished, well- developed patient, in no distress, not toxic not dyspneic HEAD: Normocephalic. Nontender scalp and skull. No crepitus or step-off. EYES: Pupils equal round and reactive. No scleral icterus. No injection no discharge, no extraocular muscle entrapment. Denies any double vision. ENT: Mucous membranes moist. No drooling no tongue elevation no trismus no malocclusion, bilateral nasal edema/deformity. No active nasal bleeding. Tender to touch at the zygomatic arches. There is a 2 cm horizontal laceration at the mid upper lip at the philtrum. Skin tear at the mucosal surface opposite side of the laceration. Is not through and through. Use Q-tip to probe. After lidocaine infiltration. No other intraoral laceration or injury seen. No septal hematomas. No active bleeding in the nares. There is no malocclusion or trismus. Stable on stress of the maxilla bone centrally. Patient does have upper dentures NECK: Trachea midline. Non tender, no midline tenderness or step-off. CARDIOVASCULAR: Regular rate and rhythm without murmurs, gallops, or rubs. RESPIRATORY: Clear to auscultation. Breath sounds equal bilaterally. No wheezes, rales, or rhonchi. GASTROINTESTINAL: Abdomen soft, non-tender, nondistended. EXTREMITIES: No gross deformities. Nontender left lower extremity hip knee and ankle. As well as the right lower extremity hip knee and ankle. Stable pelvis nontender. Right upper extremity nontender shoulder elbow and wrist and hand. Left upper extremity tender at the elbow and wrist. But does have full active range motion at the elbow and wrist with supination pronation flexion extension strong boxing inspector in radial pulse with light touch intact to thumb and fingers. Nontender shoulder no deformity. Able to raise hand above her head. Without shoulder pain. BACK: Nontender without deformity or crepitance. No flank tenderness., no midline tenderness or step-off of the thoracic or lumbar spine. NEURO: AOx4. SKIN: Warm and dry PSYCH: Not anxious, is cooperative Initial Vital Signs Initial Vital Signs: Vital Signs Pulse Rate 104 H 10/11/20 17:58 Respiratory Rate 16 10/11/20 17:58 Blood Pressure 143/71 H 10/11/20 17:58 Pulse Oximetry 96 10/11/20 17:58 Procedures Laceration Repair Laceration 1: Site: lip Size (cm): 2 Description: linear and clean Depth: simple, single layer Local Anesthetic: lidocaine 1% and with epi Amount of anesthesia used (mL): 1 Pre-repair: wound explored, irrigated extensively and deep structures intact (No muscle exposure seen.) Skin layer closed with: nylon Size (cm): 6-0 Number of sutures: 5 Technique: simple, interrupted Orthopedic Splinting/Casting Injury #1: Upper Extremity Injury Location: elbow Upper Extremity Immobilizer: sugar tong splint Post splinting neuro exam: intact Post splinting vascular exam: intact Placed by: Nursing Course Course Course Narrative: Patient brought in from waiting room after CT Time 8:16 p.m.. Spoke with transfer center with [facility]. They will contact Trauma Services to call us back Orders Ordered: ED Orders 10/11/20 19:31 XR elbow LT 2V Stat XR wrist LT 2V Stat 10/11/20 19:35 Complete Blood Count AUTO DIFF Stat Comprehensive Metabolic Panel Stat Partial Thromboplastin Time Stat Prothrombin Time INR Stat 10/11/20 23:45 Ethanol (ETOH) Stat Discontinued Medications Hydrocodone Bitart/Acetaminophen (Hydrocodone/Acet 5/325 Prepack) 1 bottle MISC SEEINSTR ONE Stop: 10/12/20 01:34 Last Admin: 10/12/20 01:55 Dose: 1 bottle Documented by: CHELY Bacitracin (Bacitracin Oint 0.9 Gm Pckt) 1 applic TOP NOW ONE Stop: 10/12/20 01:52 Last Admin: 10/12/20 01:55 Dose: 1 applic Documented by: CHELY Morphine Sulfate (Morphine 4 Mg/Ml Inj) 4 mg IV NOW ONE Stop: 10/11/20 19:47 Last Admin: 10/11/20 20:15 Dose: 4 mg Documented by: CHELY Ondansetron HCl (Ondansetron 4 Mg/2 Ml Inj) 4 mg IV NOW ONE Stop: 10/11/20 19:47 Last Admin: 10/11/20 20:16 Dose: 4 mg Documented by: CHELY Reevaluation(s) Reevaluation #1: Patient up and walking without assist to the bathroom. Steady. Not ataxic. Reviewed results with patient and she agrees with treatment plan and followups Time: 01:31 Consultations Consultation #1: Spoke with [facility] Trauma surgeon Dr. Baltazar, plastic/cranial surgery on-call, no indication to transfer patient for findings of facial fractures. [place] 1. Patient will be followed up next week stay in their clinic. Soft diet instructions. No NSAIDs. Head of bed 30? when at rest. Do not use draw for drinking Time: 22:35 Vital Signs Vital signs: Vital Signs - 8 hr 10/11/20 20:09 10/12/20 01:55 Pulse Rate 91 H 82 Respiratory Rate 16 17 Blood Pressure 131/62 132/57 L Pulse Oximetry 97 98 MDM - Wound/Laceration Differential Diagnosis Differential diagnosis: Likely other (Facial fractures/elbow fracture/lip laceration) Lab Data Attestation: I reviewed the patient's lab results. Result diagrams: 10/11/20 19:35 10/11/20 19:35 Labs: Lab Results 10/11/20 10/11/20 10/11/20 Range/Units 19:35 19:35 19:35 WBC 7.9 (4.5-11.0) X10^3/uL RBC 4.40 (4.0-5.2) X10^6/uL Hgb 11.8 L (12.0-16.0) g/dL Hct 36.5 (36-46) % MCV 82.9 (80-100) fL MCH 26.7 (26-34) PG MCHC 32.2 (30-36) % RDW 14.4 (11.6-14.8) % Plt Count 223 (150-400) X10^3/uL Neut % (Auto) 81.8 H (50-75) % Lymph % (Auto) 10.8 L (25-40) % [place] % (Auto) 6.1 (3-14) % Eos % (Auto) 1.0 L (2-4) % Baso % (Auto) 0.3 (0-2) % Neut # (Auto) 6500 (9842-7527) /uL Lymph # (Auto) 900 L (5902-2779) /uL [place] # (Auto) 500 (0-900) /uL Eos # (Auto) 100 (0-450) /uL Baso # (Auto) 0 (0-100) /uL PT 11.2 (10.1-12.7) SECONDS INR 1.0 (0.9-1.3) APTT 29 D (26.4-36.2) SECONDS Sodium 137 (137-145) mmol/L Potassium 4.4 (3.4-5.1) mmol/L Chloride 102 (98-107) mmol/L Carbon Dioxide 30 (22-32) mmol/L BUN 18 H (7-17) mg/dL Creatinine 0.65 (0.52-1.04) mg/dL Estimated GFR > 60.0 (>60) mL/min BUN/Creatinine Ratio 27.7 H (6-22) Glucose 130 H (80-110) mg/dL Calcium 9.6 (8.4-10.2) mg/dL Total Bilirubin 0.4 (0.2-1.3) mg/dL AST 33 (14-36) IU/L ALT 25 (<35) IU/L Alkaline Phosphatase 81 (38-126) U/L Total Protein 7.7 (6.3-8.2) g/dL Albumin 4.5 (3.5-5.0) g/dL Globulin 3.2 (1.7-4.1) g/dL Albumin/Globulin Ratio 1.4 (1.0-2.8) Ethyl Alcohol ( - 10) mg/dL // Range/Units 23:45 WBC (4.5-11.0) X10^3/uL RBC (4.0-5.2) X10^6/uL Hgb (12.0-16.0) g/dL Hct (36-46) % MCV (80-100) fL MCH (26-34) PG MCHC (30-36) % RDW (11.6-14.8) % Plt Count (150-400) X10^3/uL Neut % (Auto) (50-75) % Lymph % (Auto) (25-40) % [place] % (Auto) (3-14) % Eos % (Auto) (2-4) % Baso % (Auto) (0-2) % Neut # (Auto) (9992-5127) /uL Lymph # (Auto) (1608-4922) /uL [place] # (Auto) (0-900) /uL Eos # (Auto) (0-450) /uL Baso # (Auto) (0-100) /uL PT (10.1-12.7) SECONDS INR (0.9-1.3) APTT (26.4-36.2) SECONDS Sodium (137-145) mmol/L Potassium (3.4-5.1) mmol/L Chloride (98-107) mmol/L Carbon Dioxide (22-32) mmol/L BUN (7-17) mg/dL Creatinine (0.52-1.04) mg/dL Estimated GFR (>60) mL/min BUN/Creatinine Ratio (6-22) Glucose (80-110) mg/dL Calcium (8.4-10.2) mg/dL Total Bilirubin (0.2-1.3) mg/dL AST (14-36) IU/L ALT (<35) IU/L Alkaline Phosphatase (38-126) U/L Total Protein (6.3-8.2) g/dL Albumin (3.5-5.0) g/dL Globulin (1.7-4.1) g/dL Albumin/Globulin Ratio (1.0-2.8) Ethyl Alcohol < 10 ( - 10) mg/dL Imaging Data CT facial bones: Radiologist's Impression: [address] [id number] Scan ReportSigned Patient: Lida WarrenMR#: [id number]: 2Acct:[id number]/Sex: 80 / FDate of Service: 10/11/20Loc: EDAccession Number: [id number] Procedure: CT facial bones wo con Ordering Provider: Jani Camilo MD PROCEDURE: CT FACIAL BONES WO CON INDICATIONS: Fall, +LOC TECHNIQUE: Noncontrast 2.5 mm thick axial images acquired from the mandible through the frontal sinuses, with coronal and sagittal reformatting. For radiation dose reduction, the following was used: automated exposure control, adjustment of mA and/or kV according to patient size. COMPARISON: None. FINDINGS: Image quality: Mild motion artifacts. Bones and teeth: Bilateral nasal bone fractures. Bilateral maxillary sinus wall fractures, involving the anterior, lateral and posterior wall of the right maxillary sinus, and the anterior, medial, lateral, posterior wall of the left maxillary sinus. There are mildly displaced fractures of the right medial and lateral pterygoid plates, and the left medial pterygoid plate. Orbital corona are intact. Visualized portions of the mandible demonstrate no fractures or subluxation. Zygomatic arches are intact. Visualized portions of the skull base and auditory canals are intact. Sinuses: There are air-fluid levels in maxillary sinuses bilaterally. Mastoid air cells are aerated. Soft tissues: No edema, masses, or fluid collections. No enlarged lymph nodes. No soft tissue lacerations or debris. Vascular: Visualized vascular structures appear normal in the absence of contrast. Bony vascular foramina and canals are intact. IMPRESSION: 1. Bilateral nasal bone fractures. 2. Bilateral maxillary sinus wall fractures. 3. Bilateral pterygoid plate fractures. 4. Air-fluid levels in maxillary sinuses bilaterally consistent with blood. 5. Orbits and globes are intact. Dictated by: Jordana Jacobs M.D. on 10/11/2020 at 18:54 Approved by: Jordana Jacobs M.D. on 10/11/2020 at 19:02 CT scan - head: Radiologist's Impression: [address] [id number] Scan ReportSigned Patient: Iain Warren#: [id number]: 1940cct:[id number]/Sex: 80 / FDate of Service: 10/11/20Loc: EDAccession Number: [id number] Procedure: CT head/brain wo con Ordering Provider: Jani Camilo MD PROCEDURE: CT HEAD/BRAIN WO CON INDICATIONS: Fall, +LOC TECHNIQUE: Noncontrast 4.5 mm thick angled axial sections acquired from the foramen magnum to the vertex, with coronal and sagittal reformats. For radiation dose reduction, the following was used: automated exposure control, adjustment of mA and/or kV according to patient size. COMPARISON: [facility], CT, CT HEAD/BRAIN WO CON, 06/16/2020, 19:26. FINDINGS: Image quality: Excellent. CSF spaces: Basal cisterns are patent. No extra-axial fluid collections. The ventricles are symmetric in size and shape. Brain: No intracranial bleeds or masses. There is cerebral volume loss for age, with resultant ventricular and sulcal prominence. There are periventricular and deep white matter chronic small vessel ischemic changes. There is intracranial internal carotid artery atherosclerosis. Skull and face: Calvarium and visualized facial bones appear intact, without suspicious lesions. Sinuses: There is for air-fluid levels in maxillary sinuses bilaterally. The mastoids are clear. IMPRESSION: 1. No acute intracranial abnormalities. 2. Cerebral volume loss and chronic microvascular ischemic changes. 3. Air-fluid levels in maxillary sinuses bilaterally. Please see separate facial bone CT for detail. Dictated by: Jordana Jacobs M.D. on 10/11/2020 at 18:52 Approved by: Jordana Jacobs M.D. on 10/11/2020 at 18:54 CT - cervical spine: Radiologist's Impression: [address] [id number] Scan ReportSigned Patient: Iian Warren#: [id number]: 1940cct:[id number]/Sex: 80 / FDate of Service: 10/11/20Loc: EDAccession Number: [id number] Procedure: CT cervical spine wo con Ordering Provider: Jani Camilo MD PROCEDURE: CT CERVICAL SPINE WO CON INDICATIONS: Fall, +LOC TECHNIQUE: Noncontrast 3 mm thick sections acquired from the skull base to the T4 level. Sagittal and coronal reformats were then constructed. For radiation dose reduction, the following was used: automated exposure control, adjustment of mA and/or kV according to patient size. COMPARISON: [facility], CT, CT CHEST ABD PEL W CON, 06/16/2020, 19:26. [facility], CT, CT CERVICAL SPINE WO CON, 06/16/2020, 19:26. FINDINGS: Image quality: Excellent. Bones: No fractures or dislocations. There is degenerative changes in cervical spine, moderate at C5-C6 and C6-C7. Mild bilateral facet arthropathy. Visualized superior ribs are intact. Soft tissues: Prevertebral soft tissues are normal in thickness. No paravertebral hematomas. There are bilateral infiltrate apical scars, right greater than left. IMPRESSION: 1. No fractures. 2. Degenerative changes in cervical spine. 3. Bilateral apical scars, right greater than left. Dictated by: Jordana Jacobs M.D. on 10/11/2020 at 19:03 Approved by: Jordana Jacobs M.D. on 10/11/2020 at 19:07 Extremity x-ray #1: Radiologist's Impression: [address] [id number] ReportSigned Patient: Iain Warren#: [id number]: 2Acct:[id number]/Sex: 80 / FDate of Service: 10/11/20Loc: EDAccession Number: [id number] Procedure: XR elbow LT 2V Ordering Provider: Jani Camilo MD PROCEDURE: XR ELBOW LT 2V INDICATIONS: Fall/injury TECHNIQUE: 2 views of the elbow were acquired. COMPARISON: None. FINDINGS: Bones: Possible radial head fracture. No dislocations. No suspicious bony lesions. Soft tissues: There is a small elbow joint effusion. No suspicious soft tissue calcifications. IMPRESSION: There is small elbow effusion and possible radial head fracture. Dictated by: Jordana Jacobs M.D. on 10/11/2020 at 20:14 Approved by: Jordana Jacobs M.D. on 10/11/2020 at 20:16 Extremity x-ray #2: Radiologist's Impression: [address] [id number] ReportSigned Patient: Iain Warren#: [id number]: 2Acct:[id number]/Sex: 80 / FDate of Service: 10/11/20Loc: EDAccession Number: [id number] Procedure: XR wrist LT 2V Ordering Provider: Jani Camilo MD PROCEDURE: XR WRIST LT 2V INDICATIONS: Fall/injury TECHNIQUE: 2 views of the wrist were acquired. COMPARISON: None. FINDINGS: Bones: No fractures or dislocations. No suspicious bony lesions. Soft tissues: Vascular calcifications consistent with atherosclerosis. IMPRESSION: No definitive fracture. If clinical symptoms persist or clinical suspicion for pathology is high, a repeat examination in 7-10 days, or advanced imaging such as CT or MRI is suggested for further evaluation. Dictated by: Jordana Jacobs M.D. on 10/11/2020 at 20:16 Approved by: Jordana Jacobs M.D. on 10/11/2020 at 20:17 [facility] Narrative Medical decision making narrative: Appropriate for discharge home. Consult to Trauma surgery [facility] for facial fractures. Discharge instructions given by them. Patient agrees with treatment plan. Discharge Plan Departure Patient Disposition: Home Clinical Impression: Closed extensive facial fractures Qualifiers: Encounter type: initial encounter Qualified Code(s): S02.92XA - Unspecified fracture of facial bones, initial encounter for closed fracture Closed fracture of elbow Qualifiers: Encounter type: initial encounter Laterality: left Qualified Code(s): S42.402A - Unspecified fracture of lower end of left humerus, initial encounter for closed fracture Laceration of lip Qualifiers: Encounter type: initial encounter Qualified Code(s): S01.511A - Laceration without foreign body of lip, initial encounter Instructions: Soft Diet, DI for Laceration Repair, DI for Elbow Fracture, DI for Closed Head Injury, DI for Facial Fracture Activity Restrictions/Additional Instructions: Call our review plastic/oral maxillofacial surgery office on Thursday if you have not heard from them today. Their phone number is [phone]. You have appointment with her office in [place] next Thursday. October 17. You must maintain a soft diet. Do not use any straws to drink. Do not take any aspirin or any ibuprofen or Excedrin. Be sure to sleep with your head elevated at 30?. Call provided orthopedic office regarding her elbow fracture, call tomorrow. Use splint and sling until office appointment time. No operating machinery or driving. Clean your lip wound once a day with warm soap and water and then apply topical antibiotic. See specialists next Thursday as scheduled to remove 5 stitches from your lip. Prescriptions: New hydrocodone-acetaminophen [[place]] 5-325 mg tablet 1 tab PO Q4-6H PRN (Reason: pain) Qty: 20 RF: 0 No Action atorvastatin [Lipitor] 10 MG tablet 10 mg PO HS Qty: 0 RF: 0 sertraline [Zoloft] 25 MG tablet 150 mg PO QDAY Qty: 0 RF: 0 acetaminophen 650 mg Tablet Extended Release 650 mg PO Q4H PRN (Reason: pain) Qty: 0 RF: 0 albuterol sulfate 90 mcg/actuation HFA aerosol inhaler 1 puff Inhalation Q4H PRN (Reason: Shortness Of Breath) RF: 0 esomeprazole magnesium 40 mg capsule,delayed release(DR/EC) 40 mg PO DAILY Qty: 30 RF: 0 trazodone 50 mg tablet 50 mg PO BEDTIME RF: 0 Spiriva with HandiHaler 18 mcg Capsule, W/Inhalation Device 1 cap INHALATION DAILY RF: 0 fluticasone propion-salmeterol [Advair Diskus] 250-50 mcg/dose blister with device 1 inh INHALATION BID RF: 0 amoxicillin-pot clavulanate [Augmentin] 875-125 mg Tablet 1 tab PO BID Qty: 18 RF: 0 Referrals: Anju Faulkner MD [Physician] - Ayaka Padilla MD [Primary Care Provider] -
[2020-10-11 19:44] LABS: Add Manual Diff / Slide Review NO; Basophils Absolute Auto 0 /uL (0-100); Basophils Percent Auto 0.3 % (0-2); Eosinophils Absolute Auto 100 /uL (0-450); Hematocrit 36.5 % (36-46); Hemoglobin 11.8 g/dL (12.0-16.0); Lymphocytes Absolute Auto 900 /uL (1100-4500); Lymphocytes Percent Auto 10.8 % (25-40); Mean Corpuscular HGB Conc 32.2 % (30-36); Mean Corpuscular Hemoglobin 26.7 PG (26-34); Mean Corpuscular Volume 82.9 fL (80-100); Monocytes Absolute Auto 500 /uL (0-900); Monocytes Percent Auto 6.1 % (3-14); Neutrophils Absolute Auto 6500 /uL (1500-7000); Neutrophils Percent Auto 81.8 % (50-75); Platelet Count 223 X10^3/uL (150-400); Red Cell Distribution Width 14.4 % (11.6-14.8); White Blood Cell Count 7.9 X10^3/uL (4.5-11.0)
[2020-10-11 20:04] LABS: Prothrombin Time 11.2 SECONDS (10.1-12.7)
[2020-10-11 20:07] LABS: PTT Partial Thromboplastin Tim 29 SECONDS (26.4-36.2)
[2020-10-11 20:09] VITALS: BP 131/62; PULSE 91; RESP 16; O2SAT 97
[2020-10-11] MEDS: MORPHINE 4 MG/ML INJ IV (20:15)
[2020-10-11] MEDS: ONDANSETRON 4 MG/2 ML INJ IV (20:16)
[2020-10-11 20:19] LABS: Alanine Aminotransferase 25 IU/L (<35); Albumin 4.5 g/dL (3.5-5.0); Albumin Globulin Ratio 1.4 (1.0-2.8); Alkaline Phosphatase 81 U/L (38-126); Aspartate Aminotransferase 33 IU/L (14-36); BUN Creatinine Ratio 27.7 (6-22); Bilirubin Total 0.4 mg/dL (0.2-1.3); Blood Urea Nitrogen 18 mg/dL (7-17); Calcium 9.6 mg/dL (8.4-10.2); Carbon Dioxide 30 mmol/L (22-32); Chloride 102 mmol/L (98-107); Estimated Glomerular Filt Rate > 60.0 mL/min (>60); Globulin 3.2 g/dL (1.7-4.1); Glucose 130 mg/dL (80-110); HEMOLYSIS < 15 (0-50); Potassium 4.4 mmol/L (3.4-5.1); Sodium 137 mmol/L (137-145); Total Protein 7.7 g/dL (6.3-8.2)
[2020-10-12 00:01] LABS: Ethanol (ETOH) < 10 mg/dL
[2020-10-12] MEDS: LIDOCAINE 1% W/EPI 30 ML (01:40)
[2020-10-12 01:55] VITALS: BP 132/57; PULSE 82; RESP 17; O2SAT 98
[2020-10-12] MEDS: BACITRACIN OINT 0.9 GM PCKT 1 APPLIC TOP (01:55)
[2020-10-12] MEDS: HYDROCODONE/ACET 5/325 PREPACK 1 BOTTLE MISC (01:55)
--- NOTE | 2020-10-12 01:55 | PC.NURSE ---
Provider verified splint
== END 2020-10-12 02:05 | disposition home or self-care (01) ==
PROVIDERS: Emergency Provider Emergency Medicine; PCP Family Medicine
DX: S02.92XA Unspecified fracture of facial bones, initial encounter for closed fracture (principal); S42.402A Unspecified fracture of lower end of left humerus, initial encounter for closed fracture; S01.511A Laceration without foreign body of lip, initial encounter; W01.0XXA Fall on same level from slipping, tripping and stumbling without subsequent striking against object, initial encounter; M25.532 Pain in left wrist; R04.0 Epistaxis; J44.9 Chronic obstructive pulmonary disease, unspecified; E78.5 Hyperlipidemia, unspecified
CPT/HCPCS: 12011; 29105; 36415; 70450; 70486; 72125; 73070; 73100; 80053; 80320; 85025; 85610; 85730; 96374; 96375; 99284; J2270; J2405

== ENCOUNTER → 2020-10-31 13:55 | Outpatient (CLI) | payer OTHER, SELFPAY ==
--- NOTE | 2020-10-31 | DI.CT.S_ITS ---
PROCEDURE: CT UE LT WO CON INDICATIONS: Pain in left wrist TECHNIQUE: Noncontrast 1 mm axial sections acquired through the carpal bones, with coronal and sagittal reformats. COMPARISON: [facility], CR, XR WRIST 3+ VIEWS LEFT, 10/23/2020, 16:12. FINDINGS: Image quality: Excellent. Bones: Wrist alignment is anatomic. There is no fracture or dislocation. No suspicious intraosseous lesion. Osteoarthritic changes are noted throughout wrist joints particularly over radial aspect most prominent involving 1st CMC joint. Soft tissues: There is chondrocalcinosis in the region of triangular fibrocartilage. No full-thickness wrist tendon rupture. No significant joint effusion or intra-articular loose body. IMPRESSION: 1. 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 No fracture or dislocation. No suspicious intraosseous lesion. 2. Suggestion of chondrocalcinosis in the region of triangular fibrocartilage. No significant joint effusion or calcified intra-articular loose body. 3. No gross full-thickness wrist tendon rupture. Dictated by: John Fernando M.D. on 10/31/2020 at 14:56 Approved by: John Fernando M.D. on 10/31/2020 at 15:02
== END ==
PROVIDERS: PCP Family Medicine; Referring Provider Family Medicine; Visit Provider Orthopaedic Surgery Adult Reconstructive Orthopaedic Surgery
DX: M25.532 Pain in left wrist (principal); M18.12 Unilateral primary osteoarthritis of first carpometacarpal joint, left hand; M19.032 Primary osteoarthritis, left wrist
CPT/HCPCS: 73200

== ENCOUNTER → 2020-11-28 15:13 | Outpatient (CLI) | payer OTHER, SELFPAY ==
--- NOTE | 2020-11-28 15:19 | DI.ECHO.S_ITS ---
Version: 1 Study ID: [id number] [place] [address] Name: BLANKA BONILLA Study Date: 11/28/2020, 4: 21 PM : 1940 BP: 132 / 76 mmHg Gender: Female Height: 63 in Age: 80 Years Weight: 107 lb BSA: 1.48 mA? Ordering: LYNNE ARAUJO Referring: LYNNE ARAUJO Clinician: Sindhu Fried Reason For Study: HYPOTENSION, DYSPNEA History: Summary Statements This is a technically difficult study characterized by limited endocardial visualization, particularly on parasternal views. Normal sinus rhythm. Normal LV size and wall thickness. Normal wall motion and LV systolic function. EF is 50-55%. Mild to moderate MAC. Otherwise no valvular abnormalities. Mildly reduced RV function. Compared to prior study 10/12/2013 no significant changes have occurred. Procedure: A two-dimensional transthoracic echocardiogram with color flow and Doppler was performed. The study quality was technically limited. The study quality was technically difficult. Comparison is made with the echocardiogram of 10/12/2013. Technical quality was limited due to the patients right pneumonectomy. The patient was in sinus rhythm with heart rates between 72-77 bpm during the exam. Left Ventricle: The ejection fraction is estimated to be 50-55%. The left ventricle is normal in size and wall thickness. Right Ventricle: Right ventricular systolic function is mildly reduced. The right ventricle is normal size. Atria: There is no Doppler evidence for an interatrial shunt. The left atrium is moderately dilated. Right atrial size is normal. Mitral Valve: There is trace mitral regurgitation. There is mild to moderate mitral annular calcification. Aortic Valve: No aortic regurgitation is present. There is no aortic valve stenosis. The aortic valve is trileaflet. Tricuspid Valve: There is trace tricuspid regurgitation. The tricuspid valve is normal in structure and function. Pulmonic Valve: There is no pulmonic valvular regurgitation. The pulmonic valve leaflets are thin and pliable; valve motion is normal. Great Vessels: The ascending aorta could not be visualized. The aortic root is normal size. The IVC is of normal diameter and collapses greater than 50% with a sniff. This suggests a low right atrial pressure of 3 mm Hg. Pericardium/ Pleura: There is no pericardial effusion. There is no pleural effusion. 2D and M-Mode Measurements and Calculations LVIDd: 4.3 cm LVOT diam: 1.95 cm LVIDs: 3.4 cm Ao Arch Diam (Prox Trans): 2.7 cm IVSd: 0.75 cm LVPWd: 0.54 cm LV allen. diameter/BSA (cm/m^2): 2.9 LV sys. diameter/BSA (cm/m^2): 2.29 RVD1 (basal): 3.3 cm IVC diam: 0.95 cm TAPSE: 1.45 cm LA A4 area: 16.2 oil drilling engineer? RA area: 8.7 oil drilling engineer? LA A2 area: 19.5 oil drilling engineer? RA long axis: 3.3 cm LA length (vol): 4.4 cm RA vol: 19.5 ml LA vol: 60.5 ml RA : 13.2 ml/mA? LA vol index: 40.8 ml/mA? Doppler Measurements and Calculations Ao V2 max: 104.7 cm/sec LVOT Max Justin: 78.1 cm/sec Ao V2 mean: 69.9 cm/sec LV V1 max P.44 mmHg Ao V2 VTI: 22.3 cm LV V1 VTI: 15.2 cm Ao max P.4 mmHg Ao mean P.25 mmHg ABDIRIZAK(I,D): 2.04 oil drilling engineer? ABDIRIZAK(V,D): 2.24 oil drilling engineer? ABDIRIZAK indexed to BSA (cm^2/m^2): 1.37 sev ratio: 0.68 MV E max justin: 58.5 cm/sec MV dec time: 0.21 sec MV A max justin: 64.8 cm/sec MV E/A: 0.90 Med Peak E' Justin: 5.7 cm/sec Lat Peak E' Justin: 7.1 cm/sec E/e' average: 9.2 PA V2 max: 60.4 cm/sec PA mean P.84 mmHg Electronically signed by: Quinkannan Seymour M.D. 11/28/2020, 9: 32 PM
--- NOTE | 2020-11-28 15:20 | DI.RAD.S_ITS ---
PROCEDURE: XR DEXA AXIAL SKELETON INDICATIONS: Hypotension, unspecified other forms of dyspnea. COMPARISON: None. FINDINGS: This blank DEXA report has been sent in error by the PACS system. The correct and complete report will be forthcoming in 1-2 days. Thank you for your patience and understanding. Dictated by: Nancy Gleason MD, PhD on 11/28/2020 at 17:27 Approved by: Nancy Gleason MD, PhD on 11/28/2020 at 17:27
== END ==
PROVIDERS: PCP Family Medicine; Referring Provider Family Medicine; Visit Provider Family Medicine
DX: R06.09 Other forms of dyspnea (principal); I95.9 Hypotension, unspecified; M81.0 Age-related osteoporosis without current pathological fracture; Z87.891 Personal history of nicotine dependence; C81.90 Hodgkin lymphoma, unspecified, unspecified site
CPT/HCPCS: 77080; 93306

== ENCOUNTER 2021-02-21 13:45 | Outpatient (RCR) | payer OTHER, SELFPAY ==
--- NOTE | 2021-02-19 15:06 | PT.OIE ---
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) Status post surgery (~12/2003) Visit Care Team Role Provider Type Ayaka Padilla MD Attending Provider Physician Family Provider Primary Care Provider Referring Provider Specialty: Family Practice Address: [address] [place] [address], [facility] Email: [email or web address] Physical Therapy Initial Evaluation PT-OP-A Visit Information Start: 02/19/21 14:37 Freq: Status: Active Protocol: Document 02/19/21 14:37 (Rec: 02/19/21 15:06 [email or web address]) Out-Patient Physical Therapy Visit Information Visit Information Visit Type Initial Evaluation Visit Note with daughter Visit Start Time 13:45 Visit Stop Time 14:30 Total Visit Minutes 45 Visit Number 1 Number of PHYSICAL THERAPY PROFESSOR Visits 0 Evaluation Information Evaluation Date 02/19/21 Precautions Precautions Osteoporosis SOB high fall risk cancer PT-OP-B Current Condition Start: 02/19/21 14:37 Freq: Status: Active Protocol: Document 02/19/21 14:37 (Rec: 02/19/21 15:06 [email or web address]) Current Condition History of Current Condition Onset Date 1 year ago Current Complaints multiple falls, decreased in balance, gait disorder History of Current Condition Lida is a 80 yo female here with her daughter today to address her issue of having multiple falls since last year . Dtr stated pt had her first fall on 06/16/20 while being intoxicated. She then fell 2-3 times after and resulted in facial fracture. She did not have any significant injury but she not has fear of falling. Dtr stated she has a wobbly gait and pt is unable to get up from the floor if she falls. Pt like to do yardwork but hasnt been able to do much d/t decreased balance. Treatment Goals Patient/Caregiver Goals 1. To improve pt's overall balance and strnegth 2. to be able to walk as tolerated with no fear of falling 3. able to participate yardwork 4. able to get up from the floor without assistance. Current Functional Impairments (Reported) Functional Limitations- Mobility/Gait SPC for outdoor walking furniture cruise at home occasionally Functional Limitations- Recreation/ unable to get up from the Hobbies floor PT-OP-C Subjective Start: 02/19/21 14:37 Freq: Status: Active Protocol: Document 02/19/21 14:37 (Rec: 02/19/21 15:06 [email or web address]) Patient Questionnaires ABC- Activity Specific Balance Confidence Scale ABC Score 53.75 ABC Functional Impairment 40 to <60% Impaired (Score 41- 60) Dizziness Handicap Inventory DHI Score 58 DHI Functional Impairment 40 to 59% Impaired (Score 40- 59) PT-OP-D Balance Start: 02/19/21 14:37 Freq: Status: Active Protocol: Document 02/19/21 14:37 (Rec: 02/19/21 15:06 [email or web address]) Grossman Balance Assessment Evaluation Sitting to Standing Ability Independent w/Hands Unsupported Stance Safely- 2 minutes Sitting Unsupported, Feet on Floor Safely- 2 minutes Standing to Sitting Ability Assist, Control w/Hands Transfer Ability Safely, Hand Use Unsupported Stance- Eyes Closed Supervision, 10 seconds Unsupported Stance- Eyes Open Supervision to maintain Reaching Forward Standing Safely, 5 inches Pick- Up Object From Floor Within 2 inches, Unable Look Behind Shoulder - Standing Shifts Weight Well Turning 360 Degrees Supervision/Verbal Cues Unsupported Stance, Alternating Feet on 4 Steps w/Supervision Stair Unsupported Tandem Stance Balance Lost- Step/Stand Unilateral Leg Stance Lifts Leg/Unable to Hold Total Score Grossman Total Score (out of 56 points) 36 PT-OP-E Functional Tests Start: 02/19/21 14:37 Freq: Status: Active Protocol: Document 02/19/21 14:37 (Rec: 02/19/21 15:06 [email or web address]) Functional Tests 30 Second Sit to Stand Test Score 6.5 Comments 20' chair, grower sign, knee valgus noted. Need UE push off PT-OP-G Mobility & Gait Start: 02/19/21 14:37 Freq: Status: Active Protocol: Document 02/19/21 14:37 (Rec: 02/19/21 15:06 [email or web address]) OP Gait Assessment Gait Deviations General Gait Pattern Antalgic,Decreased Stride Length,Decreased Feet Clearance,Lateral Trunk Lean Factors Limiting Gait Function Factors Limiting Gait Function Decreased Activity Tolerance, Decreased Strength,Limited Range of Motion,Pain,Poor Balance,Poor Safety Awareness, Respiratory Distress Comments Gait Comments WBOS, R>L, dec push off R>L, significant R knee valgus PT-OP-J Posture/Palpation/Skin Start: 02/19/21 14:37 Freq: Status: Active Protocol: Document 02/19/21 14:37 (Rec: 02/19/21 15:06 [email or web address]) Posture Evaluation Position Standing Weight Distribution Weight Shifted Left,Decreased Wt.Bear on (R) Knee Posture (R) Genu Valgus,(R) Excess Flexion Palpation Assessment Location B hips Palpation Findings Soft Tissue Tightness, Tenderness,Trigger Point Palpation Details significant hypertonicity noted at buttocks L>R, hip adductors R>L PT-OP-K Range of Motion Start: 02/19/21 14:37 Freq: Status: Active Protocol: Document 02/19/21 14:37 (Rec: 02/19/21 15:06 [email or web address]) Hip Goniometric Range of Motion Hip Right Active Hip ROM WFL No Internal Rotation 50 External Rotation 34 Left Active Internal Rotation 32 External Rotation 47 PT-OP-M Strength Start: 02/19/21 14:37 Freq: Status: Active Protocol: Document 02/19/21 14:37 (Rec: 02/19/21 15:06 [email or web address]) Hip Strength Hip Manual Muscle Testing Right Flexion (L2) 4 Good Abduction 3+ Fair+ Adduction 4- Good- External Rotation 3+ Fair+ Internal Rotation 3+ Fair+ Left Flexion (L2) 4 Good Abduction 4- Good- Adduction 4- Good- External Rotation 4- Good- Internal Rotation 4- Good- Knee Strength Knee Manual Muscle Testing Right Flexion (S2) 4- Good- Extension (L3) 4- Good- Left Flexion (S2) 4- Good- Extension (L3) 4- Good- PT-OP-T Assessment and Plan Start: 02/19/21 14:37 Freq: Status: Active Protocol: Document 02/19/21 14:37 (Rec: 02/19/21 15:06 [email or web address]) Physical Therapy Assessment Rehab Potential Rehabilitation Potential Good Evaluation Complexity Number of Personal Factors/Comorbidities 3 or More Number of Body Systems Impaired 3 Clinical Presentation at Evaluation Stable Impairments Impairments Activity Tolerance,Balance, Functional Activities, Functional Mobility,Gait,Pain, Posture,ROM,Soft Tissue Mobility,Strength,Tone, Transfers Other Concerns Fall Risk high Age Related Concerns osteoporosis Barriers to Rehabilitation depression cancer Goals floor recovery Impairment pt is unable to recover from the floor after a fall Lan Manager Goal (LTG) pt will be able to recover from the floor with the use of chair independently and safely. LTG Duration 8 weeks strength Impairment 30 second STS= 6.5 times with UE assistance Short Term Goal (STG) pt will improve her LE strength to complete STS >7 times without use of UE assistance STG Duration 6 weeks Lan Manager Goal (LTG) pt will improve her hip strength to be able to stand on one leg >5 seconds LTG Duration 12 weeks /GROSSMAN Impairment pt scores 36/56 on GROSSMAN Short Term Goal (STG) pt will improve her overall balance to score 40 on GROSSMAN so she will be able to scrap picker objects from the floor safely STG Duration 6 weeks Half-Way Goal (LTG) pt will improve her overall balance to score 45on GROSSMAN so she walk in the community without the need of aD LTG Duration 12 weeks ABC scale Impairment pt scores 53.75 on ABC scale Short Term Goal (STG) pt will score 60 on ABC to show improved level of self confidence with her overall balance STG Duration 6 weeks Lan Manager Goal (LTG) pt will score 70 on ABC to show improved level of self confidence with her overall balance to mobilize in the community LTG Duration 12 weeks Assessment Summary Assessment Lida is a 80 yo female here for balance issue d/t her multiple falls since last year . Upon assessment, pt presents significant weak hip stabilizers R worse than L who also walks with a knock knee gait (mostly on R side). Her GROSSMAN = 36/56, 30s STS =6.5 with grower sign, ABC scale = 54 which are all below her peers' score. There's no noticeable vestibular involvment but definitely a fear of falling component in it as she stated. Pt will benefit from skilled therapy to strengthen her hip stabilizers, normalize her gait, and overall balance training in order for her to safely mobilize at home and community. Physical Therapy Plan Frequency and Duration Frequency of Treatment 2x/Week Duration of Treatment 12 weeks Plan of Care Start Date 02/19/21 Plan of Care End Date 05/20/21 Therapeutic Interventions Therapeutic Interventions Aquatic Therapy,Balance Training,Coordination Training ,Gait Training,Home Exercise Program,Joint Mobilizations, Manual Therapy,Neuromuscular Re-education,Patient/Caregiver Education,Self-Care/Home Management,Soft Tissue Mobilization,Taping, Therapeutic Activities, Therapeutic Exercises Modalities Biofeedback,Cold Pack/Ice Massage,Electric Stimulation, Hot Packs,Infrared Therapy, Iontophoresis,Traction- Mechanical Next Visit Focus/Plan Next Note Type Treatment Note Next Visit Plan manual athip adductors and glutes supine clam shell bridge figure 4 stretch and piri stretch
--- NOTE | 2021-02-19 15:06 | PT.OPPOC ---
Physical, Occupational & Speech Therapy At [facility] Current Diagnoses Unspecified lack of coordination (02/19/21) Visit Care Team Role Provider Type Ayaka Padilla MD Attending Provider Physician Family Provider Primary Care Provider Referring Provider Specialty: Family Practice Address: [address] [place] [address], [id number] Email: Plan Of Care PT-OP-T Assessment and Plan Start: 02/19/21 14:37 Freq: Status: Active Protocol: Document 02/19/21 14:37 (Rec: 02/19/21 15:06 [email or web address]) Physical Therapy Assessment Rehab Potential Rehabilitation Potential Good Evaluation Complexity Number of Personal Factors/Comorbidities 3 or More Number of Body Systems Impaired 3 Clinical Presentation at Evaluation Stable Impairments Impairments Activity Tolerance,Balance, Functional Activities, Functional Mobility,Gait,Pain, Posture,ROM,Soft Tissue Mobility,Strength,Tone, Transfers Other Concerns Fall Risk high Age Related Concerns osteoporosis Barriers to Rehabilitation depression cancer Goals floor recovery Impairment pt is unable to recover from the floor after a fall Replanter Goal (LTG) pt will be able to recover from the floor with the use of chair independently and safely. 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 STG Duration 6 weeks Group Home Goal (LTG) pt will improve her overall balance to score 45on GROSSMAN so she walk in the community without the need of aD LTG Duration 12 weeks ABC scale Impairment pt scores 53.75 on ABC scale Short Term Goal (STG) pt will score 60 on ABC to show improved level of self confidence with her overall balance STG Duration 6 weeks Group Home Goal (LTG) pt will score 70 on ABC to show improved level of self confidence with her overall balance to mobilize in the community LTG Duration 12 weeks Assessment Summary Assessment Lida is a 80 yo female here for balance issue d/t her multiple falls since last year . Upon assessment, pt presents significant weak hip stabilizers R worse than L who also walks with a knock knee gait (mostly on R side). Her GROSSMAN = 36/56, 30s STS =6.5 with grower sign, ABC scale = 54 which are all below her peers' score. There's no noticeable vestibular involvment but definitely a fear of falling component in it as she stated. Pt will benefit from skilled therapy to strengthen her hip stabilizers, normalize her gait, and overall balance training in order for her to safely mobilize at home and community. Physical Therapy Plan Frequency and Duration Frequency of Treatment 2x/Week Duration of Treatment 12 weeks Plan of Care Start Date 02/19/21 Plan of Care End Date 05/20/21 Therapeutic Interventions Therapeutic Interventions Aquatic Therapy,Balance Training,Coordination Training ,Gait Training,Home Exercise Program,Joint Mobilizations, Manual Therapy,Neuromuscular Re-education,Patient/Caregiver Education,Self-Care/Home Management,Soft Tissue Mobilization,Taping, Therapeutic Activities, Therapeutic Exercises Modalities Biofeedback,Cold Pack/Ice Massage,Electric Stimulation, Hot Packs,Infrared Therapy, Iontophoresis,Traction- Mechanical Next Visit Focus/Plan Next Note Type Treatment Note Next Visit Plan manual athip adductors and glutes supine clam shell bridge figure 4 stretch and piri stretch Plan of Care Dates Plan of Care Start Date 02/19/21 Plan of Care End Date 05/20/21 Electronically Signed by: George Solorzano, PT 02/19/21 2203 Please Sign and Return: I have reviewed this Plan of Care and certify that the skilled therapy services above are required to meet the patient?s needs. Physician Signature Date Printed Name and Credentials Clinical Instructor Signature Printed Name and Credentials
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
--- NOTE | 2021-02-27 09:33 | PT.OPDS ---
Current Diagnoses Unspecified lack of coordination (02/21/21) Visit Care Team Role Provider Type Ayaka Padilla MD Attending Provider Physician Family Provider Primary Care Provider Referring Provider Specialty: Family Practice Address: [address] [place] [address], [place], [address] Email: [email or web address] Visit Number Visit Number 2 Discharge Summary PT-OP-T Assessment and Plan Start: 02/19/21 14:37 Freq: Status: Active Protocol: Document 02/27/21 09:33 (Rec: 02/27/21 09:33 [email or web address]) Physical Therapy Plan Discharge Physical Therapy Discharge Reasons Patient Request Discharge Comments pt called in and stated [place] and will not be able to attend PT anymore. DC from PT
== END 2021-06-20 15:01 | disposition home or self-care (01) ==
LOC: PHYS 13:45
PROVIDERS: Family Provider Family Medicine; PCP Family Medicine; Referring Provider Family Medicine; Visit Provider Family Medicine
DX: R27.9 Unspecified lack of coordination (principal)
CPT/HCPCS: 97110; 97140; 97162

== ENCOUNTER 2022-10-30 10:03 | Inpatient (IN) | payer OTHER, SELFPAY ==
[2022-10-30] VITALS (13 sets, daily range): BP systolic 88–117; BP diastolic 42–61; PULSE 75–87; RESP 15–29; TEMP 36.6; O2SAT 90–96; BMI 22.7
--- NOTE | 2022-10-30 10:03 | DI.CT.S_ITS ---
PROCEDURE: CT STROKE INDICATIONS: significant R sided deficits x 15 minutes TECHNIQUE: Noncontrast 4.5 mm thick angled axial sections acquired from the foramen magnum to the vertex, with coronal reformats. For radiation dose reduction, the following was used: automated exposure control, adjustment of mA and/or kV according to patient size. COMPARISON: [facility], CT, CT HEAD/BRAIN WO CON, 10/11/2020, 18:24. FINDINGS: Image quality: Excellent. CSF spaces: Basal cisterns are patent. No extra-axial fluid collections. The ventricles are symmetric in size and shape. Brain: No intracranial bleeds or masses. There is moderate cerebral volume loss for age, with resultant ventricular and sulcal prominence. There are moderate periventricular and deep white matter chronic small vessel ischemic changes. Senescent calcifications noted in the bilateral basal ganglia. There is intracranial internal carotid artery atherosclerosis. Skull and face: Calvarium and visualized facial bones appear intact, without suspicious lesions. Sinuses: Mild right maxillary sinus disease. The other visualized paranasal sinuses and mastoids are clear. IMPRESSION: 1. CT head without acute intracranial abnormalities or acute calvarial fractures. 2. Age-related senescent changes and sequela of chronic small vessel ischemic disease. Findings were discussed with Dru at 1018 hrs This study fulfills neurological imaging criteria for inclusion or exclusion of acute stroke therapies based on available published neurological guidelines. Dictated by: Rasta Giles M.D. on 10/30/2022 at 10:16 Approved by: Rasta Giles M.D. on 10/30/2022 at 10:20
--- NOTE | 2022-10-30 10:04 | DI.CT.S_ITS ---
PROCEDURE: CT ANGIO HEAD AND NECK INDICATIONS: significant R sided deficits x 15 minutes TECHNIQUE: Noncontrast images were performed earlier in the day and not repeated. After the administration of intravenous contrast, 1 mm thick sections acquired from the aortic arch through the [place]. Post-contrast 4.5 mm thick sections then re-acquired from the foramen magnum to the vertex. 3-dimensional liwmrpk-zbeeinsvk-yygngrkglj (MIP) and/or volume rendering reformats were acquired of the central intracranial vasculature and neck separately. For radiation dose reduction, the following was used: automated exposure control, adjustment of mA and/or kV according to patient size. COMPARISON: [facility], CT, CT ANGIO CHEST PE, 09/30/2022, 16:10. [facility], CT, CT STROKE, 10/30/2022, 10:08. [facility], CT, CT HEAD/BRAIN WO CON, 10/11/2020, 18:24. FINDINGS: Image quality: Excellent. BRAIN: CSF spaces: Ventricles are normal in size and shape. Basal cisterns are patent. No extra-axial fluid collections. Brain: No midline shift. No intracranial bleeds or masses. Barriga-white matter interface appears intact. Skull and face: Calvarium and facial bones appear intact, without suspicious lesions. Orbits appear normal. Sinuses: Sinuses and mastoids are clear. HEAD CT ANGIOGRAPHY: Anterior circulation: No flow seen within the right intracranial internal carotid artery. The left intracranial internal carotid artery appears normal. There is poor flow seen throughout the right MCA territory, with nearly no flow within the M1 segment and drastically reduced flow throughout the right MCA territory. The left middle cerebral arteries are unremarkable. The flow within the paired anterior cerebral arteries is normal and symmetric. The anterior communicating artery is seen. No aneurysms are seen. Posterior circulation: Visualized portions of the vertebral arteries demonstrate normal caliber, and join to form a normal appearing basilar artery. Flow within the posterior cerebral arteries is normal and symmetric. No aneurysms are seen. NECK CT ANGIOGRAPHY: Carotid system: The great vessels demonstrate a conventional anatomy as they arise from the aortic arch. The origins of the common carotid arteries appear patent. The common carotid arteries demonstrate normal caliber and courses. The bifurcation regions are within normal limits. 2 cm beyond the origin of the right internal carotid artery, there is complete occlusion seen. The left internal carotid artery is within normal limits. Posterior circulation: The origins of the vertebral arteries both appear widely patent. The more superior extracranial portions of both vertebral arteries also demonstrate normal courses and calibers. They join to form a normal appearing basilar artery. Soft tissues: Visualized neck soft tissues demonstrate no suspicious abnormalities. Pleural thickening with pleural fluid and calcification can be seen at the right lung apex. The left lung apex is within normal limits. Bones: No suspicious bony lesions. Visualized cervical spine appears normally aligned. At least moderate lower cervical spine degenerative changes are seen. IMPRESSION: Complete occlusion of the right internal carotid artery, 2 cm beyond its origin. No flow seen within the more distal internal carotid artery, including within the intracranial internal carotid artery. There is almost no flow seen within the right MCA territory. There is pleural fluid with pleural thickening and pleural calcification seen involving the right lung apex. This process appears similar to the prior CT dated 09/30/2022. Additional findings: Moderate cervical spine degenerative change Note: Case discussed by telephone with Dr. Gonsales at 9:48 a.m. [place] time on October 30, 2022. Any quantitative measurements of stenosis were performed using NASCET criteria. Dictated by: Aftab Chin M.D. on 10/30/2022 at 9:40 Approved by: Aftab Chin M.D. on 10/30/2022 at 9:49
--- NOTE | 2022-10-30 10:12 | ED.NEUROSD ---
HPI - Neuro Symptoms/Deficit General Chief Complaint: Neuro Symptoms/Deficit Stated Complaint: Code Stroke, R side flacid Time Seen by Provider: 10/30/22 10:03 History of Present Illness HPI Narrative: 82-year-old female former smoker with history of an immune disorder, depression, alcohol abuse, prior head injuries, is a DNR with comfort measures presents by EMS as a code stroke. She had been in her normal state of health per family up until 945 this morning when they left the room very briefly in upon return noticed significant left-sided deficits including upper and lower extremity and gaze disturbance. Medics say that she is having improving symptoms by her arrival and that she was completely unresponsive up until about the time we got the CT but she is showing some improvement upon return. She is activated as a code stroke given time of onset but also considered potentially code IR given significant LAMS. She is taken directly to CT Related Data Home Medications Medication Instructions Recorded Confirmed acetaminophen 650 mg 650 mg PO Q4H PRN pain ##0 10/25/12 06/17/20 tablet,extended release atorvastatin 10 mg tablet (Lipitor) 10 mg PO HS ##0 10/25/12 06/17/20 sertraline 25 mg tablet (Zoloft) 150 mg PO QDAY ##0 10/25/12 02/16/20 albuterol sulfate 90 mcg/actuation 1 puff inhalation Q4H PRN 03/17/19 06/17/20 aerosol inhaler Shortness Of Breath tiotropium bromide 18 mcg capsule 1 cap inhalation DAILY 01/02/20 02/16/20 with inhalation device (Spiriva with HandiHaler) trazodone 50 mg tablet 50 mg PO BEDTIME 01/02/20 02/16/20 fluticasone 250 mcg-salmeterol 50 1 inh inhalation BID respiratory 06/17/20 06/17/20 mcg/dose blistr powdr for inhalation (Advair Diskus) Previous Rx's Medication Instructions Recorded esomeprazole magnesium 40 mg 40 mg PO DAILY #30 caps 03/19/19 capsule,delayed release amoxicillin 875 mg-potassium 1 tab PO BID #18 tabs 06/17/20 clavulanate 125 mg tablet (Augmentin) hydrocodone 5 mg-acetaminophen 325 1 tab PO Q4-6H PRN pain #20 tabs 10/12/20 mg tablet ([place]) Allergies Allergy/AdvReac Type Severity Reaction Status Date / Time No Known Drug Allergies Allergy Verified 10/30/22 10:15 Review of Systems Review of Systems ROS Unobtainable: Unobtainable due to mental status/LOC Patient History Medical History Alcohol abuse Bronchiectasis COPD (chronic obstructive pulmonary disease) Degenerative joint disease (DJD) of lumbar spine Depression GERD (gastroesophageal reflux disease) Hyperlipidemia, mixed Immune disorder Lung nodule Non Hodgkin's lymphoma Pulmonary embolism Surgical History History of bladder suspension procedure (~08/2008) 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 Thin with evidence of chronic illness, in obvious distress. GCS 14 (confusion) HEAD: Atraumatic. Normocephalic. EYES: Pupils equal round and reactive. Extraocular motions intact. No scleral icterus. No injection or drainage. ENT: Nose without bleeding, purulent drainage. Throat without erythema, tonsillar hypertrophy or exudate. Airway patent. NECK: Trachea midline. Non tender CARDIOVASCULAR: Regular rate and rhythm without murmurs, gallops, or rubs. RESPIRATORY: Clear to auscultation. Breath sounds equal bilaterally. No wheezes, rales, or rhonchi. GASTROINTESTINAL: Abdomen soft, non-tender, nondistended. EXTREMITIES: No edema or joint tenderness. BACK: Nontender without deformity or crepitance. No flank tenderness. NEURO: See below SKIN: No rash or erythema of visible areas Initial Vital Signs Initial Vital Signs: Vital Signs Temperature 97.8 F 10/30/22 10:05 Pulse Rate 80 10/30/22 10:05 Respiratory Rate 15 10/30/22 10:05 Blood Pressure 117/59 L 10/30/22 10:05 Pulse Oximetry 96 10/30/22 10:05 Oxygen Delivery Method 10/30/22 10:05 Scores NIH Stroke Scale Level of Conciousness: Not alert, but arousable by minor stim to obey, answer or respond Ask month/age: Answers both questions correctly. Open/close eyes, close hand: Performs both tasks correctly Best gaze horizontal: Partial gaze palsy, can be overcome by finger tracking, head turning Visual petersen: Partial hemianopia Facial palsy: Partial paralysis, total or near total paralysis of lower face Left arm drift: No effort against gravity Right arm drift: No drift for full 10 sec Left leg drift: No effort against gravity Right leg drift: No drift for full 5 sec Limb ataxia: Absent Sensory on face/arms/legs: Mild to moderate sensory loss, can tell touch Best language: Severe aphasia, not much is understood, fragmented Dysarthria: Mild to mod,some slurring Extinction or inattention: Visual, tactile, auditory, spacial or personal inattention to stimuli Total NIH Stroke scale score: 16 Course Orders Ordered: Acetaminophen (Acetaminophen 325 Mg Tablet) 650 mg PO Q4HR PRN PRN Reason: Fever/Mild Pain (1-3) Atropine Sulfate (Atropine 1% Ophth) 2 drops SL Q2HR PRN PRN Reason: Secretions Bisacodyl (Bisacodyl 10 Mg Supp) 10 mg MS BID PRN PRN Reason: Constipation Lorazepam (Lorazepam 2 Mg/Ml Inj) 0.5 mg IV Q1HR PRN PRN Reason: Anxiety Magnesium Hydroxide (Magnesium Hydroxide 30 Ml Udc) 30 ml PO DAILY PRN PRN Reason: Constipation Morphine Sulfate (Morphine 2 Mg/Ml Inj) 2 mg IV Q2HR PRN PRN Reason: Pain, Moderate (4-6) Last Admin: 10/30/22 16:34 Dose: 2 mg Documented By: Admin: 10/30/22 12:11 Dose: 2 mg Documented By: AT Morphine Sulfate (Morphine 2 Mg/Ml Inj) 1 mg IV Q1HR PRN PRN Reason: Pain, Moderate (4-6) Last Admin: 10/31/22 10:13 Dose: 1 mg Documented By: CLL Ondansetron HCl (Ondansetron 4 Mg Odt) 4 mg PO Q4HR PRN PRN Reason: Nausea And Vomiting Ondansetron HCl (Ondansetron 4 Mg/2 Ml Inj) 4 mg IV Q4HR PRN PRN Reason: Nausea And Vomiting Scopolamine (Scopolamine 1 Patch) 1 patch TOP Q72H PRN PRN Reason: Secretions Discontinued Medications Sodium Chloride (Normal Saline 0.9%) 500 mls @ 1,000 mls/hr IV BOLUS ONE Stop: 10/30/22 12:29 Last Infusion: 10/30/22 13:12 Dose: 0 mls/hr Documented By: Admin: 10/30/22 12:11 Dose: 1,000 mls/hr Documented By: AT Lorazepam (Lorazepam 2 Mg/Ml Inj) 0.5 mg IV Q1HR [facility] Last Admin: 10/30/22 16:00 Dose: Not Given Documented By: EJ Morphine Sulfate (Morphine 2 Mg/Ml Inj) 1 mg IV Q1HR [facility] Last Admin: 10/30/22 16:00 Dose: Not Given Documented By: EJ Ondansetron HCl (Ondansetron 4 Mg/2 Ml Inj) 4 mg IV NOW ONE Stop: 10/30/22 12:01 Last Admin: 10/30/22 12:11 Dose: 4 mg Documented By: AT Consultations Consultation #1: call from radiologist, Head CT unremarkable Time: 10:21 Consultation #2: call to Marcela (daughter) en route to ED call to Sully (daughter) en route to ED Time: 10:23 Consultation #3: Marcela (daughter) is at the bedside. She is aware of presumed diagnosis. She is DPOA and confirms that patient is DNR/Comfort Measures and would not want TPA or other intervention. Time: 10:38 Additional Consultation(s): 1050 - given CTA findings, will close the loop with [facility] [place] to appropriately inform family. Vital Signs Vital signs: Vital Signs - 8 hr 10/30/22 10:05 Temperature 97.8 F Pulse Rate 80 Respiratory Rate 15 Blood Pressure 117/59 L Pulse Oximetry 96 Oxygen Delivery Method Room Air MDM - Neuro Symptoms/Deficit Lab Data Result diagrams: 10/30/22 10:06 10/30/22 10:50 Labs: Lab Results 10/30/22 10/30/22 10/30/22 Range/Units 10:06 10:06 10:37 WBC 5.5 (4.5-11.0) X10^3/uL RBC 3.82 L (4.0-5.2) X10^6/uL Hgb 10.1 L (12.0-16.0) g/dL Hct 31.8 L (36-46) % MCV 83.3 (80-100) fL MCH 26.5 (26-34) PG MCHC 31.8 (30-36) % RDW 15.0 H (11.6-14.8) % Plt Count 236 (150-400) X10^3/uL Neut % (Auto) 45.8 L (50-75) % Lymph % (Auto) 42.4 H (25-40) % [place] % (Auto) 10.8 (3-14) % Eos % (Auto) 0.4 L (2-4) % Baso % (Auto) 0.6 (0-2) % Neut # (Auto) 2500 (4085-1952) /uL Lymph # (Auto) 2300 (4332-9566) /uL [place] # (Auto) 600 (0-900) /uL Eos # (Auto) 0 (0-450) /uL Baso # (Auto) 0 (0-100) /uL PT 11.5 (10.1-12.7) SECONDS INR 1.0 (0.9-1.3) APTT 31 (26-36) SECONDS Sodium (137-145) mmol/L Potassium (3.4-5.1) mmol/L Chloride (98-107) mmol/L Carbon Dioxide (22-32) mmol/L BUN (7-17) mg/dL Creatinine (0.52-1.04) mg/dL Estimated GFR (>60) mL/min BUN/Creatinine Ratio (6-22) Glucose (80-110) mg/dL Calcium (8.4-10.2) mg/dL Total Bilirubin (0.2-1.3) mg/dL AST (14-36) IU/L ALT (<35) IU/L Alkaline Phosphatase (38-126) U/L Total Creatine Kinase (30-135) U/L CK-MB (CK-2) CK-MB (CK-2) Rel Index Troponin I (0.01-0.034) ng/mL Total Protein (6.3-8.2) g/dL Albumin (3.5-5.0) g/dL Globulin (1.7-4.1) g/dL Albumin/Globulin Ratio (1.0-2.8) Ethyl Alcohol ( - 10) mg/dL SARS-CoV-2 (PCR) Negative (Negative) 10/30/22 Range/Units 10:50 WBC (4.5-11.0) X10^3/uL RBC (4.0-5.2) X10^6/uL Hgb (12.0-16.0) g/dL Hct (36-46) % MCV (80-100) fL MCH (26-34) PG MCHC (30-36) % RDW (11.6-14.8) % Plt Count (150-400) X10^3/uL Neut % (Auto) (50-75) % Lymph % (Auto) (25-40) % [place] % (Auto) (3-14) % Eos % (Auto) (2-4) % Baso % (Auto) (0-2) % Neut # (Auto) (4501-3500) /uL Lymph # (Auto) (5799-8548) /uL [place] # (Auto) (0-900) /uL Eos # (Auto) (0-450) /uL Baso # (Auto) (0-100) /uL PT (10.1-12.7) SECONDS INR (0.9-1.3) APTT (26-36) SECONDS Sodium 137 (137-145) mmol/L Potassium 4.0 (3.4-5.1) mmol/L Chloride 103 (98-107) mmol/L Carbon Dioxide 30 (22-32) mmol/L BUN 7 (7-17) mg/dL Creatinine 0.66 (0.52-1.04) mg/dL Estimated GFR > 60 (>60) mL/min BUN/Creatinine Ratio 10.6 (6-22) Glucose 89 (80-110) mg/dL Calcium 8.1 L (8.4-10.2) mg/dL Total Bilirubin 0.3 (0.2-1.3) mg/dL AST 57 H (14-36) IU/L ALT 36 H (<35) IU/L Alkaline Phosphatase 103 (38-126) U/L Total Creatine Kinase 74 (30-135) U/L CK-MB (CK-2) TNP CK-MB (CK-2) Rel Index TNP Troponin I 2.780 H* (0.01-0.034) ng/mL Total Protein 6.2 L (6.3-8.2) g/dL Albumin 3.0 L (3.5-5.0) g/dL Globulin 3.2 (1.7-4.1) g/dL Albumin/Globulin Ratio 0.9 L (1.0-2.8) Ethyl Alcohol < 10 ( - 10) mg/dL SARS-CoV-2 (PCR) (Negative) Point of Care Testing Glucose POC [address] scan - head: Radiologist's Impression: Close Brain CT (Signed) TishaRasta - 10/30/22 Launch?Image [address] [address] [address] Scan Report Signed Patient: Lida Warren MR#: [id number] : 1940 Acct:[id number] Age/Sex: 82 / F Date of Service: 10/30/22 Loc: ED Accession Number: [id number] ?? Procedure: CT Stroke Ordering Provider: Carlos Gonsales D.O. PROCEDURE:? CT STROKE ? INDICATIONS:? significant R sided deficits x 15 minutes ? TECHNIQUE:? Noncontrast 4.5 mm thick angled axial sections acquired from the foramen magnum to the vertex, with coronal reformats.? For radiation dose reduction, the following was used:? automated exposure control, adjustment of mA and/or kV according to patient size.? ? COMPARISON:? [facility], CT, CT HEAD/BRAIN WO CON, 10/11/2020, 18:24. ? FINDINGS:? Image quality:? Excellent.? ? CSF spaces:? Basal cisterns are patent.? No extra-axial fluid collections.? The ventricles are symmetric in size and shape.? ? Brain:? No intracranial bleeds or masses.? There is moderate cerebral volume loss for age, with resultant ventricular and sulcal prominence.? There are moderate periventricular and deep white matter chronic small vessel ischemic changes.? Senescent calcifications noted in the bilateral basal ganglia.? There is intracranial internal carotid artery atherosclerosis.? ? Skull and face:? Calvarium and visualized facial bones appear intact, without suspicious lesions.? ? Sinuses:? Mild right maxillary sinus disease.? The other visualized paranasal? sinuses and mastoids are clear.? ? IMPRESSION:? 1. CT head without acute intracranial abnormalities or acute calvarial fractures. ? 2. Age-related senescent changes and sequela of chronic small vessel ischemic disease. ? Findings were discussed with Dru at 1018 hrs ? This study fulfills neurological imaging criteria for inclusion or exclusion of acute stroke therapies based on available published neurological guidelines.? ? ? Dictated by: Rasta Giles M.D. on 10/30/2022 at 10:16 ? ? Approved by: Rasta Giles M.D. on 10/30/2022 at 10:20 ? MDM Narrative Medical decision making narrative: 82-year-old female with sudden onset, massive left-sided neurologic deficits consistent with large vessel occlusion Multiple etiologies for patient's symptoms considered including, but not limited to: [Hemorrhagic stroke, ischemic stroke, dissection versus other] Prior Charts reviewed: Including prior emergency department visits from 2019 Labs reviewed and interpreted by myself: No significant abnormalities that would require intervention or Contribute to patient's comfort Imaging reviewed: Noncontrasted head CT without significant findings, discussed with on-call radiologist. CT angiogram of head and neck with large right-sided internal carotid occlusion up to the level of MCA Consultations: Discussed directly with to radiologist, on-call stroke neurologist at [facility] ([facility] and both patient's daughters, confirming her wishes to be DNR and comfort measure Findings and admission diagnosis discussed with patient/family followed by verbalization of understanding. Discharge Plan Departure Patient Disposition: Admitted As Inpatient Clinical Impression: Stroke Admit Date/Time: 10/30/22 12:27 Admit Provider: Ayaka Padilla
[2022-10-30 10:24] LABS: Add Manual Diff / Slide Review NO; Basophils Absolute Auto 0 /uL (0-100); Basophils Percent Auto 0.6 % (0-2); Eosinophils Absolute Auto 0 /uL (0-450); Eosinophils Percent Auto 0.4 % (2-4); Hematocrit 31.8 % (36-46); Hemoglobin 10.1 g/dL (12.0-16.0); Lymphocytes Absolute Auto 2300 /uL (1100-4500); Lymphocytes Percent Auto 42.4 % (25-40); Mean Corpuscular HGB Conc 31.8 % (30-36); Mean Corpuscular Hemoglobin 26.5 PG (26-34); Mean Corpuscular Volume 83.3 fL (80-100); Monocytes Absolute Auto 600 /uL (0-900); Monocytes Percent Auto 10.8 % (3-14); Neutrophils Absolute Auto 2500 /uL (1500-7000); Neutrophils Percent Auto 45.8 % (50-75); Platelet Count 236 X10^3/uL (150-400); Red Blood Cell Count 3.82 X10^6/uL (4.0-5.2); White Blood Cell Count 5.5 X10^3/uL (4.5-11.0)
[2022-10-30 10:26] LABS: Prothrombin Time 11.5 SECONDS (10.1-12.7)
[2022-10-30 10:28] LABS: PTT Partial Thromboplastin Tim 31 SECONDS (26-36)
[2022-10-30 11:14] LABS: COVID19 -Nasal RAPID Negative (Negative)
[2022-10-30 11:23] LABS: Alanine Aminotransferase 36 IU/L (<35); Albumin Globulin Ratio 0.9 (1.0-2.8); Alkaline Phosphatase 103 U/L (38-126); Aspartate Aminotransferase 57 IU/L (14-36); BUN Creatinine Ratio 10.6 (6-22); Bilirubin Total 0.3 mg/dL (0.2-1.3); Blood Urea Nitrogen 7 mg/dL (7-17); Calcium 8.1 mg/dL (8.4-10.2); Carbon Dioxide 30 mmol/L (22-32); Chloride 103 mmol/L (98-107); Creatine Kinase 74 U/L (30-135); Estimated Glomerular Filt Rate > 60 mL/min (>60); Ethanol (ETOH) < 10 mg/dL; Globulin 3.2 g/dL (1.7-4.1); Glucose 89 mg/dL (80-110); HEMOLYSIS < 15 (0-50); Sodium 137 mmol/L (137-145); Total Protein 6.2 g/dL (6.3-8.2)
--- NOTE | 2022-10-30 11:24 | PC.NURSE ---
Pt laying in stretcher with head turned to the right, breathing even and unlabored. Daughters at bedside and asked if pt was in pain. Pt opened eyes to name, and shook head when asked about pain. VSS. Lights dimmed.
[2022-10-30] MEDS: ONDANSETRON 4 MG/2 ML INJ IV (12:11)
[2022-10-30] MEDS: MORPHINE 2 MG/ML INJ IV ×2 (12:11→16:34)
[2022-10-30] MEDS: SODIUM CHLORIDE 0.9% 500 ML 1000 ML IV (12:11)
--- NOTE | 2022-10-30 17:49 | PC.NURSE ---
Pt care resumed at 1300, pt arrived from ED at approximately noon. She is lethargic but awakens and is able to answer simple questions, noted L side weakness, facial droop, LUE flaccid, and LLE. She has a R gaze preference, and slightly garbled voice. MD Padilla notified and per orders placed Peterson catheter.Morphine 2 mg given IV prior to procedure. Morphine 2 mg IV q 1 hr prn, and ativan 1 mg IV q 1 hour prn ordered for comfort. She is turned q 2 hours, frequent rounding for pain/anxiety. She has course lung sounds, and a weak cough. Oral suctioning with yankeur done with repositioning, weak gag reflex, HOB elevated 30 ddeg. Patient denies pain and continues sleeping this shift.
--- NOTE | 2022-10-30 18:33 | PM.HP.1 ---
History of Present Illness History of Present Illness Date Patient Seen: 10/30/22 Time Patient Seen: 18:34 Date of Onset of Symptoms: 10/30/22 Chief complaint: Code Stroke, R side flacid Narrative: This is a 82-year-old female who is well known to me. She has a history of COPD, bronchiectasis, immunodeficiency that caused recurrent infection and then had right upper and medial lobe pneumonectomy. She is history of degenerative joint disease and reflux esophagitis with history of GI bleeds and non-Hodgkin's lymphoma as well as hyperlipidemia, depression and previous pulmonary embolus. She was a long-time smoker. Patient was recently hospitalized for 1 week with pneumonia and septicemia. During the hospitalization she had episodes of paroxysmal atrial fibrillation but chose not to have anticoagulation. To his recently restarted on her antidepressants. When she was seen in the clinic for hospital follow-up she was requesting something to put her to sleep. She lives with her daughter and seemed to have some improvement in her mood. She still was minimally active. The patient was in her usual state of health when approximately 945 this morning she became unresponsive and was unable to move her left arm. Her daughter called 911 and she was brought to the ER for evaluation. A stroke code was called. She was in in the timeframe for tPA and aggressive treatment however due to her previous stated wishes and her documentation of DNR and desire for comfort only this was not given. The patient was found to have no evidence of intracranial hemorrhage but was found to have evidence of right internal carotid at 2 cm above the bifurcation with a complete obstruction and no flow to the middle cerebral artery distribution. This corresponded with her neurologic deficit. And the patient was admitted to the hospital for comfort measures and ongoing monitoring. Past medical history 1. COPD 2. Bronchiectasis 3. IG immunodeficiency for which she would declined treatment really for the over the last 10 years. 4. P AFib most recently 5. Distant history of non-Hodgkin's lymphoma 6. Previous history of GI bleed 7. GERD 8. Hyperlipidemia 9. Pulmonary embolus Medications: Patient went off all her medications but was taking sertraline and omeprazole. She declined any medications to prolong her life during our discussion at her last visit. She only wanted quality of life and she did not feel like the inhalers were helpful so she did not use these. Allergies: No known drug allergies Past surgical history: Right upper and medial lobectomy Family history Patient has members who from coronary artery disease I believe COPD Trauma Also family history of stroke Social history: Patient is . She is 3 children a son and 2 daughters. Her 2 daughters live in town. She currently has been living with her daughter Marcela who is her durable power of physician coding specialist. She has approximately 5 grandkids here in town. Her son lives in [place]. Health her that behavior: She does not currently smoke She does not use alcohol She is very inactive Patient History Medical History Alcohol abuse Bronchiectasis COPD (chronic obstructive pulmonary disease) Degenerative joint disease (DJD) of lumbar spine Depression GERD (gastroesophageal reflux disease) Hyperlipidemia, mixed Immune disorder Lung nodule Non Hodgkin's lymphoma Pulmonary embolism Surgical History History of bladder suspension procedure (~08/2008) S/P lobectomy of lung (12/07/09) Status post surgery (~12/2003) Family & Social History Family History Sister Cancer Brother Cancer Social History: household members family,children Tobacco & Substance use: Tobacco type cigarettes Smoking Status Former smoker alcohol intake current alcohol intake frequency 0-2 drinks per day Substance Use Type does not use Meds Home Medications and Allergies Home Medications Medication Instructions Recorded Confirmed Type acetaminophen 650 mg 650 mg PO Q4H PRN pain ##0 10/25/12 06/17/20 History tablet,extended release atorvastatin 10 mg tablet (Lipitor) 10 mg PO HS ##0 10/25/12 06/17/20 History sertraline 25 mg tablet (Zoloft) 150 mg PO QDAY ##0 10/25/12 02/16/20 History albuterol sulfate 90 mcg/actuation 1 puff inhalation Q4H PRN 03/17/19 06/17/20 History aerosol inhaler Shortness Of Breath esomeprazole magnesium 40 mg 40 mg PO DAILY #30 caps 03/19/19 02/16/20 Rx capsule,delayed release tiotropium bromide 18 mcg capsule 1 cap inhalation DAILY 01/02/20 02/16/20 History with inhalation device (Spiriva with HandiHaler) trazodone 50 mg tablet 50 mg PO BEDTIME 01/02/20 02/16/20 History amoxicillin 875 mg-potassium 1 tab PO BID #18 tabs 06/17/20 Rx clavulanate 125 mg tablet (Augmentin) fluticasone 250 mcg-salmeterol 50 1 inh inhalation BID respiratory 06/17/20 06/17/20 History mcg/dose blistr powdr for inhalation (Advair Diskus) hydrocodone 5 mg-acetaminophen 325 1 tab PO Q4-6H PRN pain #20 tabs 10/12/20 Rx mg tablet (Joes) Allergies Allergy/AdvReac Type Severity Reaction Status Date / Time No Known Drug Allergies Allergy Verified 10/30/22 10:15 Review of Systems Review of Systems Narrative: Twelve point review of systems is negative other than above Exam Vital Signs (past 8 hours): - 10/30/22 11:05 10/30/22 11:30 10/30/22 12:00 Temperature Pulse Rate 84 87 87 Respiratory Rate 22 20 Blood Pressure 98/60 95/54 L 88/61 L Pulse Oximetry 96 95 95 Oxygen Delivery Method Room Air Room Air Oxygen Flow Rate 10/30/22 12:15 10/30/22 11:30 10/30/22 11:31 Temperature Pulse Rate 87 87 Respiratory Rate 20 23 Blood Pressure 93/50 L 95/54 L Pulse Oximetry 95 95 Oxygen Delivery Method Room Air Oxygen Flow Rate 10/30/22 11:31 10/30/22 12:00 10/30/22 12:00 Temperature Pulse Rate 84 87 Respiratory Rate 22 23 Blood Pressure 88/61 L Pulse Oximetry 94 95 Oxygen Delivery Method Oxygen Flow Rate 10/30/22 12:13 10/30/22 12:13 10/30/22 12:30 Temperature Pulse Rate 83 84 Respiratory Rate 29 H 19 Blood Pressure 93/50 L Pulse Oximetry 90 L 92 Oxygen Delivery Method Oxygen Flow Rate 10/30/22 12:31 10/30/22 12:31 10/30/22 13:00 Temperature Pulse Rate 83 Respiratory Rate 19 Blood Pressure 103/46 L 89/42 L Pulse Oximetry 92 Oxygen Delivery Method Oxygen Flow Rate 10/30/22 13:00 10/30/22 13:30 10/30/22 13:31 Temperature Pulse Rate 75 75 75 Respiratory Rate 18 17 17 Blood Pressure Pulse Oximetry 92 91 90 L Oxygen Delivery Method Oxygen Flow Rate 10/30/22 13:31 10/30/22 14:00 10/30/22 14:18 Temperature 97.8 F Pulse Rate 78 Respiratory Rate 18 Blood Pressure 95/45 L 110/55 L Pulse Oximetry 92 Oxygen Delivery Method Room Air Oxygen Flow Rate 0 Oxygen Delivery Method Room Air Oxygen Flow Rate 0 Narrative Exam Narrative: Patient rouses when I say her name. She is unable to follow directions. She is mostly somnolent and does not follow commands. HEENT showed no evidence of trauma. Patient is edentulous. There is no mucosal lesions. Neck is supple without masses or adenopathy Lungs: Patient with diffuse rhonchi and crackles. Cor regular rate and rhythm at a rate of 100. Distant S1-S2 Abdomen: Positive bowel sounds, soft, nontender Extremities: No edema, pulses intact. Bilateral upper and lower extremities are warm and well perfused. There is no evidence of trauma. Neurologic exam: Patient is somnolent. Patient does not follow commands. Patient has flaccid left arm. Patient has w/d on right w plantar stimulation, but not on left. Unable to fully test strength or movement due to patient being somnolent unable to wake up to examined. No obvious facial droop Objective Labs Result Diagrams: 10/30/22 10:06 10/30/22 10:50 Labs: Laboratory Results - last 24 hr 10/30/22 10/30/22 10/30/22 10:06 10:06 10:37 WBC 5.5 RBC 3.82 L Hgb 10.1 L Hct 31.8 L MCV 83.3 MCH 26.5 MCHC 31.8 RDW 15.0 H Plt Count 236 Neut % (Auto) 45.8 L Lymph % (Auto) 42.4 H Nolan % (Auto) 10.8 Eos % (Auto) 0.4 L Baso % (Auto) 0.6 Neut # (Auto) 2500 Lymph # (Auto) 2300 Nolan # (Auto) 600 Eos # (Auto) 0 Baso # (Auto) 0 PT 11.5 INR 1.0 APTT 31 Sodium Potassium Chloride Carbon Dioxide BUN Creatinine Estimated GFR BUN/Creatinine Ratio Glucose Calcium Total Bilirubin AST ALT Alkaline Phosphatase Total Creatine Kinase CK-MB (CK-2) CK-MB (CK-2) Rel Index Troponin I Total Protein Albumin Globulin Albumin/Globulin Ratio Ethyl Alcohol SARS-CoV-2 (PCR) Negative 10/30/22 10:50 WBC RBC Hgb Hct MCV MCH MCHC RDW Plt Count Neut % (Auto) Lymph % (Auto) Nolan % (Auto) Eos % (Auto) Baso % (Auto) Neut # (Auto) Lymph # (Auto) Nolan # (Auto) Eos # (Auto) Baso # (Auto) PT INR APTT Sodium 137 Potassium 4.0 Chloride 103 Carbon Dioxide 30 BUN 7 Creatinine 0.66 Estimated GFR > 60 BUN/Creatinine Ratio 10.6 Glucose 89 Calcium 8.1 L Total Bilirubin 0.3 AST 57 H ALT 36 H Alkaline Phosphatase 103 Total Creatine Kinase 74 CK-MB (CK-2) TNP CK-MB (CK-2) Rel Index TNP Troponin I 2.780 H* Total Protein 6.2 L Albumin 3.0 L Globulin 3.2 Albumin/Globulin Ratio 0.9 L Ethyl Alcohol < 10 SARS-CoV-2 (PCR) Assessment & Plan Assessment & Plan narrative: 82-year-old female with multiple medical problems including COPD, bronchiectasis, immunodeficiency, P AFib who underwent 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 She will be admitted to the hospital with comfort measures. I have discussed the case with her daughter Marcela. We will consult discharge planning and arrange to get bed and all the equipment at the daughter's home so that patient can go home with hospice. We discussed that over the next 24-48 hours we will be able to have better information about the severity of the stroke. We will monitor secretions. A Peterson was placed for comfort. We will not do IV fluids. If patient awakens and wants to eat or drink she may. Will provide lorazepam for air hunger or agitation and morphine for pain. 2. Troponinemia quite significant with probability of possible acute CA. Again patient is comfort care only and discussed with family we will not do any further workup of this. 60 minutes was spent with discussing with ER physician meeting with patient and nursing and daughter and documenting plan. Time Spent With Patient Critical Care time: I spent a total of [] minutes of critical care time on this patient's care today; this time is exclusive of procedural time.
--- NOTE | 2022-10-31 04:17 | PC.NURSE ---
Pt is comfort care measure only. Pt has been somnolent all night and evening. Pt's lung sounds very coarse and gurgly and some secretions was out of her mouth so RN suctioned her few times. Turning pt for comfort. Peterson is draining moderate amount of yellow urine. No other changes.
[2022-10-31 08:08] VITALS: BP 99/48; PULSE 111; RESP 20; TEMP 36.8; O2SAT 85
--- NOTE | 2022-10-31 08:44 | P.PN_ITS ---
Subjective Subjective Date Patient Seen: 10/31/22 Time Patient Seen: 08:44 Interval history: Patient seen in follow-up for my partner after large right sided stroke. Has not been alert or awake since then. Exam Vital Signs (past 8 hours): Oxygen Delivery Method Room Air Oxygen Flow Rate 0 Narrative Exam Narrative: Patient resting comfortably in bed not arousable Objective Labs Result Diagrams: 10/30/22 10:06 10/30/22 10:50 Labs: Laboratory Results - last 24 hr 10/30/22 10/30/22 10/30/22 10:06 10:06 10:37 WBC 5.5 RBC 3.82 L Hgb 10.1 L Hct 31.8 L MCV 83.3 MCH 26.5 MCHC 31.8 RDW 15.0 H Plt Count 236 Neut % (Auto) 45.8 L Lymph % (Auto) 42.4 H [place] % (Auto) 10.8 Eos % (Auto) 0.4 L Baso % (Auto) 0.6 Neut # (Auto) 2500 Lymph # (Auto) 2300 [place] # (Auto) 600 Eos # (Auto) 0 Baso # (Auto) 0 PT 11.5 INR 1.0 APTT 31 Sodium Potassium Chloride Carbon Dioxide BUN Creatinine Estimated GFR BUN/Creatinine Ratio Glucose Calcium Total Bilirubin AST ALT Alkaline Phosphatase Total Creatine Kinase CK-MB (CK-2) CK-MB (CK-2) Rel Index Troponin I Total Protein Albumin Globulin Albumin/Globulin Ratio Ethyl Alcohol SARS-CoV-2 (PCR) Negative 10/30/22 10:50 WBC RBC Hgb Hct MCV MCH MCHC RDW Plt Count Neut % (Auto) Lymph % (Auto) [place] % (Auto) Eos % (Auto) Baso % (Auto) Neut # (Auto) Lymph # (Auto) [place] # (Auto) Eos # (Auto) Baso # (Auto) PT INR APTT Sodium 137 Potassium 4.0 Chloride 103 Carbon Dioxide 30 BUN 7 Creatinine 0.66 Estimated GFR > 60 BUN/Creatinine Ratio 10.6 Glucose 89 Calcium 8.1 L Total Bilirubin 0.3 AST 57 H ALT 36 H Alkaline Phosphatase 103 Total Creatine Kinase 74 CK-MB (CK-2) TNP CK-MB (CK-2) Rel Index TNP Troponin I 2.780 H* Total Protein 6.2 L Albumin 3.0 L Globulin 3.2 Albumin/Globulin Ratio 0.9 L Ethyl Alcohol < 10 SARS-CoV-2 (PCR) [facility] Medical History (Updated 10/30/22 @ 19:36 by Carlos Gonsales DO) Alcohol abuse Bronchiectasis COPD (chronic obstructive pulmonary disease) Degenerative joint disease (DJD) of lumbar spine Depression GERD (gastroesophageal reflux disease) Hyperlipidemia, mixed Immune disorder Lung nodule Non Hodgkin's lymphoma Pulmonary embolism Surgical History History of bladder suspension procedure (~08/2008) S/P lobectomy of lung (12/07/09) Status post surgery (~12/2003) Family History Sister Cancer Brother Cancer Social History household members: family and children Smoking Status: Former smoker alcohol intake: current substance use type: does not use Assessment & Plan Assessment & Plan narrative: Large CVA. Comfort care. Discussed with care with social service. Attempting to get the med and probable discharge either today or tomorrow morning. Will work hard for today. Time Spent With Patient Critical Care time: I spent a total of [] minutes of critical care time on this patient's care today; this time is exclusive of procedural time.
--- NOTE | 2022-10-31 08:57 | CM.DANOTE ---
Initial DCP Assessment Note Pt is an 82 yo female, resident of [place], arrives via EMS, code stroke, inevitably admitted under comfort measures and family asking to take patient home w/hospice services. Likely Observation status approp. UR to review status PCP: Dr Nereida Padilla Payer: [employer] for Life Dr Padilla and Dr Padilla requesting coordination from CM team RODRICK to get patient home to the care of her family w/ Hospice services to aid in end of life care. Family requesting this plan Placed call to [facility] who explains she can likely get hospital bed delivered today, RN start of care KATHERINE Marcus CMA kindly agreed to fax initial clinical packet to [facility] Coordinating closely w/[facility] now and will discuss dipso with patient's family this morning. Patient will likely require delivery of hospital bed, [facility] RN scheduled, comfort meds to bridge until Hospice arrives and BLS transport FERN Lugo Discharge Planning/Care Management CM Discharge Assessment Start: 10/31/22 08:53 Freq: Status: Active Protocol: Document 10/31/22 08:53 BRIANA (Rec: 10/31/22 08:57 BRIANA [id number]) Discharge Planning Assessment Assigned Shipping Coordinator FERN Villagomez DPOA/Assigned Designee Name abbey Olivares Contact Information [phone] Advance Directives? Yes Advance Directives on File No History Provided By Medical Record Prior Living Arrangements House Household Members family,children Type of transporation used prior to Relies on Others admit Independent with ADL's No: Needs assist from family Is patient alert and oriented? Yes Needs Assistance With Bathing,Meal Prep,Managing Medications,Home Chores / Shopping Barriers to Discharge No Comment Home w/family, [facility], bed needs to be delivered to assist w/ comfortable transition home. Comfort meds upon DC, BLS transport expected Discharge Plan Home Transportation Arrangement Daughters Additional Comment Hospice referral - [facility] [place] resident Medicare Choice List Provided Yes SNF/HH Preference [facility] Has Agency SNF been contacted Yes Comment Sydney at [facility] reviewing now, can likely get a bed delivered today
--- NOTE | 2022-10-31 09:28 | PC.NURSE ---
Assess- Patient is alert but disoriented x3. She is positioned on her r.side, and is comfortable, breathing is slightly labored, and patient sounds a bit congested. She has a visitor in her room now and is comfortable.
[2022-10-31] MEDS: MORPHINE 2 MG/ML INJ 1 MG IV (10:13)
--- NOTE | 2022-10-31 13:27 | PM.PN.1 ---
Subjective Subjective Date Patient Seen: 10/31/22 Time Patient Seen: 13:27 Interval history: Patient seen in follow-up of large right-sided stroke. Patient is not get regained consciousness. No other changes. Exam Vital Signs (past 8 hours): - 10/31/22 08:08 Temperature 98.3 F Pulse Rate 111 H Respiratory Rate 20 Blood Pressure 99/48 L Pulse Oximetry 85 L Oxygen Flow Rate 0 Oxygen Delivery Method Room Air Oxygen Flow Rate 0 Narrative Exam Narrative: unchanged exam Objective Labs Result Diagrams: 10/30/22 10:06 10/30/22 10:50 PFS Medical History Alcohol abuse Bronchiectasis COPD (chronic obstructive pulmonary disease) Degenerative joint disease (DJD) of lumbar spine Depression GERD (gastroesophageal reflux disease) Hyperlipidemia, mixed Immune disorder Lung nodule Non Hodgkin's lymphoma Pulmonary embolism Surgical History History of bladder suspension procedure (~08/2008) S/P lobectomy of lung (12/07/09) Status post surgery (~12/2003) Family History Sister Cancer Brother Cancer Social History household members: family and children Smoking Status: Former smoker alcohol intake: current substance use type: does not use Assessment & Plan Assessment & Plan narrative: Terminal CVA. Patient with extensive brain damage secondary to large CVA in patient with multiple other medical issues. Imminent in the next 72 hours is probable outcome. Family wants to bring her home but unable to set things up until Thursday. May not matter. But will see how things go. Will transfer if she were to survive past that time. Discussed with social service. Comfortable at this time. Time Spent With Patient Critical Care time: I spent a total of [] minutes of critical care time on this patient's care today; this time is exclusive of procedural time.
[2022-10-31] MEDS: MORPHINE 2 MG/ML INJ IV (13:36)
--- NOTE | 2022-11-01 01:51 | PC.NURSE ---
Patient is non responsive. Breath sounds w/expiratory rhonchi throughout but appears in no respiratory distress. HRR. BT hypoactive. Indwelling catheter is patent w/low urine output; urine is clear shad. Is being repositioned q2h as is not turning herself. Currently on comfort care; FLACC is 0. Fall risk score is low.
--- NOTE | 2022-11-01 08:47 | CM.DPNOTE ---
Addendum entered by Anika Klein FOREIGN EXCHANGE SERVICES MANAGER 11/01/22 16:10: ADD: [facility] arranged for transport tomorrow AM at 0900 to take patient home. Discussed plan w/ dtr Marcela who agrees and is appreciative. Updated Dr Cobb who completed most of the discharge in prep for tomorrow. POLST, demo sheet and complete BLS form placed on chart Plan: DC tomorrow AM, home w/family, BLS at 0900, [facility] RN to start visit between [id number] Thursday BRIANA Original Note: DCP Note Spoke with Sydney at [facility] yesterday afternoon; Hospice nurse now scheduled to f/u at patient's daughter's home: [id number], Thursday morning between [id number], hospital bed delivered Thursday Spoke w/patient's daughter/YAHAIRA Medrano yesterday to discuss plan. Marcela explained she had quit her job(s) recently to care for patient. Marcela confirms she wants to take patient home w/hospice services and needs to align care and DME Thursday and Thursday (family coming into town) and will plan to take patient home to her sister's house (Jerrell Howard) Thursday. Transport via BLS. Explained potential for out of pocket cost from BLS transport and dtr agreeable, states she cannot take patient home any other way, safely. Plan: DC home w/family expected Thursday with [facility] for [facility] life care This FOREIGN EXCHANGE SERVICES MANAGER will plan to schedule BLS today in preparation for DC Thursday AM BRIANA
[2022-11-01 09:00] VITALS: BP 128/75; PULSE 104; RESP 24; TEMP 37.3; O2SAT 96
[2022-11-01] MEDS: MORPHINE 2 MG/ML INJ 1 MG IV ×2 (10:36→20:01)
--- NOTE | 2022-11-01 12:35 | PM.DS.1 ---
History of Present Illness History of Present Illness Date Patient Seen: 11/01/22 Chief complaint: Code Stroke, R side flacid Narrative: This is a 82-year-old female who is well known to me.? 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 She is history of degenerative joint disease and reflux esophagitis with history of GI bleeds and non-Hodgkin's lymphoma as well as hyperlipidemia, depression and previous pulmonary embolus.? She was a long-time smoker. Patient was recently hospitalized for 1 week with pneumonia and septicemia.? During the hospitalization she had episodes of paroxysmal atrial fibrillation but chose not to have anticoagulation.? To his recently restarted on her antidepressants.? When she was seen in the clinic for hospital follow-up she was requesting something to put her to sleep.? She lives with her daughter and seemed to have some improvement in her mood.? She still was minimally active. The patient was in her usual state of health when approximately 945 this morning she became unresponsive and was unable to move her left arm.? Her daughter called 911 and she was brought to the ER for evaluation.? A stroke code was called.? She was in in the timeframe for tPA and aggressive treatment however due to her previous stated wishes and her documentation of DNR and desire for comfort only this was not given.? The patient was found to have no evidence of intracranial hemorrhage but was found to have evidence of right internal carotid at 2 cm above the bifurcation with a complete obstruction and no flow to the middle cerebral artery distribution.? This corresponded with her neurologic deficit.? And the patient was admitted to the hospital for comfort measures and ongoing monitoring. 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 In accordance with the pts wishes, she was placed on comfort care. She was not alert enough to take anything PO while in the hospital. She received morphine and ativan for comfort. She will be discharged home with hospice. Plan for discharge tomorrow morning. Status at Discharge Functional status at discharge: bed bound Overall status at discharge: patient is not back to baseline Exam Vital Signs (past 8 hours): Oxygen Delivery Method Room Air Oxygen Flow Rate 0 Narrative Exam Narrative: Gen: NAD, sleeping comfortably in bed, not really arousable CV: irregularly irregular rhythm, no murmurs Resp: coarse wet breath sounds throughout Objective Labs Result Diagrams: 10/30/22 10:06 10/30/22 10:50 PFSH Medical History Alcohol abuse Bronchiectasis COPD (chronic obstructive pulmonary disease) Degenerative joint disease (DJD) of lumbar spine Depression GERD (gastroesophageal reflux disease) Hyperlipidemia, mixed Immune disorder Lung nodule Non Hodgkin's lymphoma Pulmonary embolism Surgical History History of bladder suspension procedure (~08/2008) S/P lobectomy of lung (12/07/09) Status post surgery (~12/2003) Family History Sister Cancer Brother Cancer Social History household members: family and children Smoking Status: Former smoker alcohol intake: current substance use type: does not use Discharge Plan Discharge Plan Patient Disposition: Home Discharge orders & Medications Prescriptions: New scopolamine base [Transderm-Scop] 1 mg over 3 days Patch 3 Day 1 patch topical Q72H PRN (Reason: Secretions) Qty: 1 0RF Discontinued atorvastatin [Lipitor] 10 MG tablet 10 mg PO HS Qty: 0 sertraline [Zoloft] 25 MG tablet 150 mg PO QDAY Qty: 0 acetaminophen 650 mg Tablet Extended Release 650 mg PO Q4H PRN (Reason: pain) Qty: 0 albuterol sulfate 90 mcg/actuation HFA aerosol inhaler 1 puff Inhalation Q4H PRN (Reason: Shortness Of Breath) esomeprazole magnesium 40 mg capsule,delayed release(DR/EC) 40 mg PO DAILY Qty: 30 0RF hydrocodone-acetaminophen [[place]] 5-325 mg tablet 1 tab PO Q4-6H PRN (Reason: pain) Qty: 20 0RF trazodone 50 mg tablet 50 mg PO BEDTIME Spiriva with HandiHaler 18 mcg Capsule, W/Inhalation Device 1 cap INHALATION DAILY fluticasone propion-salmeterol [Advair Diskus] 250-50 mcg/dose blister with device 1 inh INHALATION BID amoxicillin-pot clavulanate [Augmentin] 875-125 mg Tablet 1 tab PO BID Qty: 18 0RF Follow up/Referrals: Ayaka Padilla MD [Primary Care Provider] - Diet/Activity/Treatments Diet: Diet as Tolerated Visit Report/Discharge Packet Instructions: End of Life Care Stand Alone Forms: Patient Portal/API, Stroke Signs & Symptoms Discharge Data Primary Care Provider: Ayaka Padilla Discharges patient from system. Discharge Date/Time: 11/02/22 09:00
--- NOTE | 2022-11-01 12:41 | PM.PN.1 ---
Subjective Subjective Date Patient Seen: 11/01/22 Interval history: The pt is resting peacefully in bed. Her family has no specific concerns, and feel she is comfortable. Exam Vital Signs (past 8 hours): Oxygen Delivery Method Room Air Oxygen Flow Rate 0 Narrative Exam Narrative: Gen:? NAD, sleeping comfortably in bed, not really arousable CV:? irregularly irregular rhythm, no murmurs Resp:? coarse wet breath sounds throughout Objective Labs Result Diagrams: 10/30/22 10:06 10/30/22 10:50 [facility] Medical History Alcohol abuse Bronchiectasis COPD (chronic obstructive pulmonary disease) Degenerative joint disease (DJD) of lumbar spine Depression GERD (gastroesophageal reflux disease) Hyperlipidemia, mixed Immune disorder Lung nodule Non Hodgkin's lymphoma Pulmonary embolism Surgical History History of bladder suspension procedure (~08/2008) S/P lobectomy of lung (12/07/09) Status post surgery (~12/2003) Family History Sister Cancer Brother Cancer Social History household members: family and children Smoking Status: Former smoker alcohol intake: current substance use type: does not use Assessment & Plan Assessment & Plan narrative: Pt is an 82yo woman with atrial fibrillation and COPD who presented with massive CVA. In accordance with her wishes, she is on comfort care. The pt remains comfortable with IV Morphine and Ativan. Will continue with such PRN. Pt is not taking any PO fluids, imminent in the next 72hrs is likely. Plan for d/c to home with hospice tomorrow. Time Spent With Patient Critical Care time: I spent a total of [] minutes of critical care time on this patient's care today; this time is exclusive of procedural time.
[2022-11-01] MEDS: SCOPOLAMINE 1 PATCH TOP (14:39)
[2022-11-01] MEDS: SODIUM CHLORIDE 0.9% FLUSH 10 ML IV (20:01)
--- NOTE | 2022-11-01 23:02 | PC.NURSE ---
Patient is mostly non responsive. Does open eyes when spoken to and earlier when son asked her if she was in pain she nodded her head. Breath sounds moist with both inspiratory and expiratory rhonchi. Has RR of 18. HR irregular and difficult to auscultate due to rhonchi. BT present and abdomen is soft. Indwelling catheter is patent; urine is clear shad. Is being repositioned q2h as not able to move herself. Fall risk score is low due to lack of independent movement. Plan is to discharge in a.m. Continues on comfort care.
[2022-11-02] MEDS: MORPHINE 2 MG/ML INJ 1 MG IV (04:03)
[2022-11-02] MEDS: SODIUM CHLORIDE 0.9% FLUSH 10 ML IV (04:04)
[2022-11-02] MEDS: SCOPOLAMINE 1 PATCH TOP (04:05)
--- NOTE | 2022-11-02 08:11 | PC.NURSE ---
Patient will be going home on hospice this morning at 0900. Discharge planners are going to call family to make sure that they are aware. Will medicate patient with morphine before she leaves. She sounds gurgly with breathing, has scopolomine patches on that are helping her breathing and secretions. Skin is clear at this time, she does have dry skin on her shins. Patient appears comfortable at this time.
--- NOTE | 2022-11-02 08:16 | CM.DPC ---
DCP/Continued: Spoke with Sully, Pt's daughter this am with an update of the plan for BLS pickup this am at 0900. Daughter states that she will be waiting for pt to arrive at home and that hospice will start care at home between 10-11am this morning. Shannon Mcclain RN Case Manager
[2022-11-02] MEDS: MORPHINE 2 MG/ML INJ IV (08:48)
--- NOTE | 2022-11-02 10:13 | P.DS_ITS ---
History of Present Illness History of Present Illness Date Patient Seen: 11/02/22 Chief complaint: Code Stroke, R side flacid Narrative: This is a 82-year-old female who is well known to me.? 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 She is history of degenerative joint disease and reflux esophagitis with history of GI bleeds and non-Hodgkin's lymphoma as well as hyperlipidemia, depression and previous pulmonary embolus.? She was a long-time smoker. Patient was recently hospitalized for 1 week with pneumonia and septicemia.? During the hospitalization she had episodes of paroxysmal atrial fibrillation but chose not to have anticoagulation.? To his recently restarted on her antidepressants.? When she was seen in the clinic for hospital follow-up she was requesting something to put her to sleep.? She lives with her daughter and seemed to have some improvement in her mood.? She still was minimally active. The patient was in her usual state of health when approximately 945 this morning she became unresponsive and was unable to move her left arm.? Her daughter called 911 and she was brought to the ER for evaluation.? A stroke code was called.? She was in in the timeframe for tPA and aggressive treatment however due to her previous stated wishes and her documentation of DNR and desire for comfort only this was not given.? The patient was found to have no evidence of intracranial hemorrhage but was found to have evidence of right internal carotid at 2 cm above the bifurcation with a complete obstruction and no flow to the middle cerebral artery distribution.? This corresponded with her neurologic deficit.? And the patient was admitted to the hospital for comfort measures and ongoing monitoring. 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 In accordance with the pts wishes, she was placed on comfort care.? She was not alert enough to take anything PO while in the hospital.? She received morphine and ativan for comfort.? She will be discharged home with hospice.? Plan for discharge tomorrow morning. 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 In accordance with the pts wishes, she was placed on comfort care.? She was not alert enough to take anything PO while in the hospital.? She received morphine and ativan for comfort.? She will be discharged home with hospice.? Plan for discharge tomorrow morning. Objective Labs Result Diagrams: 10/30/22 10:06 10/30/22 10:50 PFS Medical History Alcohol abuse Bronchiectasis COPD (chronic obstructive pulmonary disease) Degenerative joint disease (DJD) of lumbar spine Depression GERD (gastroesophageal reflux disease) Hyperlipidemia, mixed Immune disorder Lung nodule Non Hodgkin's lymphoma Pulmonary embolism Surgical History History of bladder suspension procedure (~08/2008) S/P lobectomy of lung (12/07/09) Status post surgery (~12/2003) Family History Sister Cancer Brother Cancer Social History household members: family and children Smoking Status: Former smoker alcohol intake: current substance use type: does not use Discharge Plan Discharge Plan Patient Disposition: Home Discharge orders & Medications Prescriptions: New scopolamine base [Transderm-Scop] 1 mg over 3 days Patch 3 Day 1 patch topical Q72H PRN (Reason: Secretions) Qty: 1 0RF Discontinued atorvastatin [Lipitor] 10 MG tablet 10 mg PO HS Qty: 0 sertraline [Zoloft] 25 MG tablet 150 mg PO QDAY Qty: 0 acetaminophen 650 mg Tablet Extended Release 650 mg PO Q4H PRN (Reason: pain) Qty: 0 albuterol sulfate 90 mcg/actuation HFA aerosol inhaler 1 puff Inhalation Q4H PRN (Reason: Shortness Of Breath) esomeprazole magnesium 40 mg capsule,delayed release(DR/EC) 40 mg PO DAILY Qty: 30 0RF hydrocodone-acetaminophen [[place]] 5-325 mg tablet 1 tab PO Q4-6H PRN (Reason: pain) Qty: 20 0RF trazodone 50 mg tablet 50 mg PO BEDTIME Spiriva with HandiHaler 18 mcg Capsule, W/Inhalation Device 1 cap INHALATION DAILY fluticasone propion-salmeterol [Advair Diskus] 250-50 mcg/dose blister with device 1 inh INHALATION BID amoxicillin-pot clavulanate [Augmentin] 875-125 mg Tablet 1 tab PO BID Qty: 18 0RF Follow up/Referrals: Ayaka Padilla MD [Primary Care Provider] - Diet/Activity/Treatments Diet: Diet as Tolerated Visit Report/Discharge Packet Instructions: End of Life Care Stand Alone Forms: Patient Portal/API, Stroke Signs & Symptoms Discharge Data Primary Care Provider: Ayaka Padilla Discharges patient from system. Discharge Date/Time: 11/02/22 09:00
== END 2022-11-02 09:00 | disposition hospice, home (50) | DRG 65 ==
LOC: ED 11:08 → AC 12:28
PROVIDERS: Admitting Provider Family Medicine; Emergency Provider Emergency Medicine; Family Provider Family Medicine; PCP Family Medicine; Referring Provider Emergency Medicine; Visit Provider Family Medicine
DX: I63.231 Cerebral infarction due to unspecified occlusion or stenosis of right carotid arteries (principal); G81.94 Hemiplegia, unspecified affecting left nondominant side; R29.716 NIHSS score 16; Z51.5 Encounter for palliative care; Z20.822 Contact with and (suspected) exposure to COVID-19; Z87.891 Personal history of nicotine dependence; Z66 Do not resuscitate
CPT/HCPCS: 36415; 70450; 70496; 70498; 80053; 80320; 82550; 82962; 84484; 85025; 85610; 85730; 87635; 93005; 96374; 99232; 99238; 99284; 99285; C9803; J2270; J2405; Q9967